=== PATIENT | female | born 1950 | race Caucasian/White ===

== ENCOUNTER 2017-07-31 09:53 | Day surgery (SDC) | payer MEDICARE ==
[~2017-07-31 09:53] MED LIST: ASPI81TA82 PO; ENAL20TA PO; LEXA20TA PO; LORTA5 PO
[2017-07-31 10:25] VITALS: BP 107/61; PULSE 75; RESP 14; TEMP 99; O2SAT 93
== END 2017-07-31 13:03 | disposition home or self-care (01) ==
LOC: HRAD 09:53 → HRIP 09:53 → HRAD 13:03
PROVIDERS: ATTEND Family Medicine
DX: K70.31 Alcoholic cirrhosis of liver with ascites (principal); F10.10 Alcohol abuse, uncomplicated

== ENCOUNTER 2017-09-25 07:54 | Day surgery (SDC) | payer MEDICARE ==
--- NOTE | 2017-09-25 09:29 | RADRPT ---
EXAM DATE/TIME: 09/25/2017 08:29 [facility] COMPARISON: No previous studies available for comparison. INDICATIONS : Evaluate for ascites. MEDICAL HISTORY : Hypertension. Peripheral neuropathy. SURGICAL HISTORY : Hysterectomy. Tumor removed from right shoulder and 2 benign tumors from left hip. ENCOUNTER: Subsequent ACUITY: 3 days PAIN SCORE: 5/10 LOCATION: Four quadrant abdomen. AREA EVALUATED: Four quadrant. FINDINGS: Imaging of the abdomen and pelvis was performed to evaluate for ascites for possible paracentesis. Mi nimal ascites is noted which is inadequate for paracentesis. CONCLUSION: Minimal ascites noted which is inadequate for paracentesis. García Power MD on September 25, 2017 at 9:26 Board Certified Radiologist. This report was verified electronically.
== END 2017-09-25 08:45 | disposition home or self-care (01) ==
LOC: HRIP 07:54 → HRAD 07:54
DX: R18.8 Other ascites (principal); I10 Essential (primary) hypertension; G62.9 Polyneuropathy, unspecified
CPT/HCPCS: 76705

== ENCOUNTER → 2017-10-08 | Outpatient (CLI) | payer MEDICARE ==
[~2017-10-08] VITALS: Ht 167.6 cm; Wt 76.1 kg
[~2017-10-08] MED LIST changes: +ASPI81TA23 PO; -ASPI81TA82 PO; +CHLORHEXIDINE GLUCONATE 2 % 1 PACK (2 CLOTHS) TOPICAL PRN; +CITA20TA4 PO; +FLOR250C PO; +FURO1TAB60 PO; +HYDR-3516 PO; +INSULIN HUMAN REGULAR 1,000 UNITS/10 ML VIAL SQ PRN; +LACT10SO PO; +LACTATED RINGER'S 1000 ML IV PRN; +LIDOCAINE HCL 1% PF 5 ML AMPULE OTHER ONE; -LORTA5 PO; +METOPROLOL TARTRATE 25 MG TAB PO PRN; +OMEP20TA93 PO; +PHENYLEPH/NS 1000 MCG/10 ML SYR IV ONE; +POVIDONE IODINE 5% (ANTISEPSIS KIT) 4 APPLICATIONS EACH NARE PRN; +PROPOFOL 200 MG/20 ML AMP IV ONE; +SODIUM CHLORID 0.9% 500 ML IV PRN; +SPIR50TA PO; +XIFA550T4 PO
[2017-10-08 08:01] VITALS: BP 116/64; PULSE 77; RESP 20; TEMP 97.6; O2SAT 100
--- NOTE | 2017-10-08 10:16 | GIPROC ---
[facility] [address] [facility]. [facility], [address] EGD PROCEDURE REPORT EXAM DATE: 10/08/2017 PATIENT NAME: Yane Bang MR #: [id number] BIRTHDATE: 1950 ATTENDING: Yannick Gonzalez MD ORDER #: [id number] WAREHOUSE CHECKER: Prasanna Cardoso and Poppy Burris STATUS: outpatient INDICATIONS: The patient is a 66 yr old female here for an EGD due to unexplained iron deficiency anemia, screening for varices, and unexplained diarrhea PROCEDURE PERFORMED: EGD, diagnostic MEDICATIONS: Per Anesthesia and None. TOPICAL ANESTHETIC: none CONSENT: The patient understands the risks and benefits of the procedure and understands that these risks include, but are not limited to: sedation, allergic reaction, infection, perforation and/or bleeding. Alternative means of evaluation and treatment include, among others: physical exam, x-rays, and/or surgical intervention. The patient elects to proceed with this endoscopic procedure. medical equipment was checked for proper function. Hand hygiene and appropriate measures for infection prevention was taken. After the risks, benefits and alternatives of the procedure were thoroughly explained, Informed consent was verified, confirmed and timeout was successfully executed by the treatment team. The patient was anesthetized with topical anesthesia and the Pentax [id number] endoscope was introduced through the mouth and advanced to the second portion of the duodenum. Retroflexion was performed and was normal The gastroscope was then slowly withdrawn and removed. STOMACH: The mucosa of the stomach appeared normal. ESOPHAGUS: There was a single medium sized varix in the distal esophagus. The varices were not bleeding. There was evidence of prior scarring. DUODENUM: The duodenal mucosa appeared normal in the duodenal bulb and 2nd part duodenum. ADVERSE EVENTS: There were no complications. IMPRESSIONS: 1. The mucosa of the stomach appeared normal 2. Normal duodenal mucosa in the duodenal bulb and 2nd part duodenum 3. Retroflexion was performed and was normal 4. Grade 2 esophageal varices RECOMMENDATIONS: Continue propanolol PATIENT CONDITION: stable DISPOSITION: Home REPEAT EXAM: NONE Yannick Gonzalez MD eSigned: Yannick Gonzalez MD 10/08/2017 10:16 AM cc: Poonam Yang M.D. PATIENT NAME: Yane Bang MR#: [id number]
--- NOTE | 2017-10-08 10:22 | GIPROC ---
[facility] [address] [facility]. [facility], [address] COLONOSCOPY PROCEDURE REPORT EXAM DATE: 10/08/2017 PATIENT NAME: Yane Bang MR #: [id number] BIRTHDATE: 1950 ENDOSCOPIST: Yannick Gonzalez MD ORDER #: [id number] WARP PLACER: Prasanna Cardoso and Poppy Burris STATUS: outpatient INDICATIONS: The patient is a 66 yr old female here for a colonoscopy due to anemia, non-specific and unexplained diarrhea PROCEDURE PERFORMED: Colonoscopy with biopsy MEDICATIONS: Per Anesthesia and None. PREP QUALITY: excellent ESTIMATED BLOOD LOSS: None CONSENT: The patient understands the risks and benefits of the procedure and understands that these risks include, but are not limited to: sedation, allergic reaction, infection, perforation and/or bleeding. Alternative means of evaluation and treatment include, among others: physical exam, x-rays, and/or surgical intervention. The patient elects to proceed with this endoscopic procedure. medical equipment was checked for proper function. Hand hygiene and appropriate measures for infection prevention was taken. After the risks, benefits and alternatives of the procedure were thoroughly explained, Informed consent was verified, confirmed and timeout was successfully executed by the treatment team. A digital exam was performed and revealed no abnormalities of the rectum The Pentax [id number] endoscope was introduced through the anus and advanced to the terminal ileum which was intubated for a short distance. The instrument was then slowly withdrawn as the colon was fully examined. COLON FINDINGS: Normal TI. The colonic mucosa appeared normal. Multiple biopsies were performed using cold forceps. R/O microscopic colitis. Retroflexion was not performed The scope was then completely withdrawn from the patient and the procedure terminated. PROCEDURE WITHDRAWAL TIME:8minutes ADVERSE EVENTS: There were no complications. IMPRESSIONS: 1. Normal TI 2. The colonic mucosa appeared normal; multiple biopsies were performed using cold forceps 3. Retroflexion was not performed RECOMMENDATIONS: 1. Await biopsy results. Biopsy results will not be ready for 7-10 days. If you don't hear from us in two weeks, call our office for results. 2. Discuss Pillcam F/U in my office RECALL: Return 5 years Colonoscopy Yannick Gonzalez MD eSigned: Yannick Gonzalez MD 10/08/2017 10:21 AM cc: Poonam Yang M.D. PATIENT NAME: Yane Bang MR#: [id number]
[2017-10-08 10:52] VITALS: BP 110/60; PULSE 75; RESP 18; TEMP 97; O2SAT 99
--- NOTE | 2017-10-08 19:37 | EKG ---
Date Performed: 10/08/2017 Time Performed: 07:33:53 PTAGE: 66 years EKG: Sinus rhythm NORMAL ECG Since PREVIOUS TRACING , no significant change noted PREVIOUS TRACIN12/29/2005 15.38 DOCTOR: Sung Morales Interpretating Date/Time 10/08/2017 19:36:03
== END ==
LOC: HEND 07:09
PROVIDERS: ATTEND Internal Medicine Gastroenterology
DX: I85.00 Esophageal varices without bleeding (principal); D50.9 Iron deficiency anemia, unspecified; R19.7 Diarrhea, unspecified; Z01.810 Encounter for preprocedural cardiovascular examination
CPT/HCPCS: 00740; 43235; 45380; 88305; 93005; J2370; J7120

== ENCOUNTER 2017-11-05 09:10 | Day surgery (SDC) | payer MEDICARE ==
[~2017-11-05 09:10] MED LIST changes: -ASPI81TA23 PO; -CHLORHEXIDINE GLUCONATE 2 % 1 PACK (2 CLOTHS) TOPICAL PRN; -ENAL20TA PO; -HYDR-3516 PO; -INSULIN HUMAN REGULAR 1,000 UNITS/10 ML VIAL SQ PRN; -LACTATED RINGER'S 1000 ML IV PRN; -LEXA20TA PO; -LIDOCAINE HCL 1% PF 5 ML AMPULE OTHER ONE; -METOPROLOL TARTRATE 25 MG TAB PO PRN; -PHENYLEPH/NS 1000 MCG/10 ML SYR IV ONE; -POVIDONE IODINE 5% (ANTISEPSIS KIT) 4 APPLICATIONS EACH NARE PRN; -PROPOFOL 200 MG/20 ML AMP IV ONE; -SODIUM CHLORID 0.9% 500 ML IV PRN
[2017-11-05 09:24] LABS: HEMATOCRIT 29.1 % (35.0-46.0); MEAN CELL VOLUME 67.7 FL (80.0-100.0); MEAN CORPUSCULAR HEMOGLOBIN 21.3 PG (27.0-34.0); MEAN CORPUSCULAR HGB CONC 31.4 % (32.0-36.0); PLATELET COUNT 126 TH/MM3 (150-450); RED BLOOD COUNT 4.29 MIL/MM3 (4.00-5.30); RED CELL DISTRIBUTION WIDTH 21.7 % (11.6-17.2); WHITE BLOOD COUNT 4.3 TH/MM3 (4.0-11.0)
[2017-11-05 09:27] LABS: HEMO FLAGS AUTO DIFF
[2017-11-05 09:36] LABS: INTERNATIONAL NORMALIZED RATIO 1.4 RATIO; PROTHROMBIN TIME - PATIENT 14.1 SEC (9.8-11.6)
[2017-11-05 09:55] LABS: BASOPHILS 1 % (0-2); EOSINOPHILS 6 % (0-4); NEUTROPHIL # MANUAL DIFF 2.7 TH/MM3 (1.8-7.7); PLATELET ESTIMATE SMEAR LOW (NORMAL); PLATELET MORPHOLOGY NORMAL (NORMAL); POLYS (SEG NEUTROPHILS) 62 % (16-70); SCAN/DIFF FINAL DIFF MANUAL; WBC DIFF SAMPLE 100
[2017-11-05 10:03] LABS: ANION GAP 10 MEQ/L (5-15); AST (GOT) 63 U/L (15-37); BICARBONATE 22.6 MEQ/L (21.0-32.0); BLOOD UREA NITROGEN 12 MG/DL (7-18); CHLORIDE 105 MEQ/L (98-107); GLOMERULAR FILTRATION RATE 59 ML/MIN (>89); GLUCOSE,FASTING 104 MG/DL (74-99); POTASSIUM 3.6 MEQ/L (3.5-5.1); SODIUM (NA) 138 MEQ/L (136-145)
[2017-11-05 10:10] VITALS: BP 136/70; PULSE 98; RESP 20; TEMP 97.5; O2SAT 91
[2017-11-05 10:19] VITALS: BP 139/78; PULSE 73; RESP 14; TEMP 97.9; O2SAT 98
[2017-11-05 10:27] LABS: ALKALINE PHOSPHATASE 229 U/L (45-117); ALT (GPT) 24 U/L (10-53); FERRITIN 15 NG/ML (8-252); TRANSFERRIN IRON PROFILE 272 MG/DL (200-360)
[2017-11-05 10:50] VITALS: BP 139/76; PULSE 78; RESP 16; TEMP 97.9; O2SAT 96
[2017-11-05] MEDS ORDERED: LIDOCAINE HCL 1% 20 ML VIAL ONE (11:16)
[2017-11-05 12:09] LABS: PERITONEAL HISTIOCYTES 34 %; PERITONEAL LYMPHS 47 %; PERITONEAL MESOTHELIAL 6 %; PERITONEAL MONOS 6 %; PERITONEAL POLYS(SEGS) 7 %; PERITONEAL WBC 80 /MM3 (0-10)
[2017-11-05] MEDS ORDERED: ALBUMIN HUMAN 25% 25GM-W/12.5GM FOR 37.5GM IV ONE (12:15)
[2017-11-05] MEDS ORDERED: ALBUMIN HUMAN 25% 12.5GM-W/25GM FOR 37.5GM IV ONE (12:15)
[2017-11-05 12:30] VITALS: BP 132/69; PULSE 76; RESP 16; O2SAT 96
[2017-11-05 15:43] LABS: C. DIFF EPI 027 PRESUMPTIVE NEGATIVE (NEGATIVE)
--- NOTE | 2017-11-05 16:06 | RADRPT ---
EXAM DATE/TIME: 11/05/2017 10:24 [facility] COMPARISON: No previous studies available for comparison. EXTERNAL COMPARISON: [facility], US ABDOMEN, COMPLETE, Jul 27 2017, September 27, 2010. INDICATIONS : Ascites. MEDICAL HISTORY : Cirrhosis. Hypertension. Peripheral neuropathy. SURGICAL HISTORY : Hysterectomy. Tumor removed from right shoulder and 2 benign tumors from left hip. ENCOUNTER: Subsequent ACUITY: > 1 yr PAIN SCORE: 2/10 LOCATION: Right lower quadrant FLUID: Total volume of 5,400 cc of clear, yellow fluid was removed. Fluid was sent to lab for ordered studies. Post procedure scanning reveals no hematoma or other complication. TECHNIQUE: 1. Ultrasound guidance for abdominal paracentesis. 2. Paracentesis. The risks, benefits, and alternatives to ultrasound guided paracentesis were explained to the patient in detail including the risk of bleeding and infection. Written and verbal informed consent was obt ained. With the patient on the ultrasound table, ultrasound imaging was used to select the most appropriate approach for paracentesis. Overlying skin was prepped and draped in the usual sterile fashion and wi th a local anesthetic, a dermatotomy was made with an 11 blade scalpel. A 6 [place] [id number] ca theter was introduced into the peritoneal cavity and fluid was collected. The patient tolerated the procedure well and left the ultrasound suite in stable condition. CONCLUSION: Uncomplicated ultrasound guided paracentesis. Tru Freitas MD on November 05, 2017 at 16:04 Board Certified Radiologist. This report was verified electronically.
== END 2017-11-05 12:50 | disposition home or self-care (01) ==
LOC: HRAD 09:10 → HRIP 09:13 → HRAD 12:50
PROVIDERS: ATTEND Physician Assistant Medical
DX: K70.31 Alcoholic cirrhosis of liver with ascites (principal); D64.9 Anemia, unspecified; I10 Essential (primary) hypertension; G62.9 Polyneuropathy, unspecified
CPT/HCPCS: 36415; 49083; 80053; 82042; 82607; 82728; 82746; 83540; 83550; 84157; 85007; 85027; 85610; 85730; 87070; 87205; 87493; 89051; 96365; C1729; P9047

== ENCOUNTER 2018-01-03 09:59 | Day surgery (SDC) | payer MEDICARE ==
[2018-01-03 12:30] VITALS: BP 122/67; PULSE 77; RESP 20; TEMP 97.8; O2SAT 99
[2018-01-03] MEDS ORDERED: LIDOCAINE HCL 1% 20 ML VIAL ONE (12:44)
[2018-01-03 12:45] VITALS: BP 123/71; PULSE 78; RESP 20; O2SAT 100
--- NOTE | 2018-01-03 12:58 | RADRPT ---
EXAM DATE/TIME: 01/03/2018 10:38 [facility] COMPARISON: EXTERNAL COMPARISON: US GUIDED ABD PARACENTESIS, November 05, 2017, 10:24. [facility], US ABDOMEN COMPLETE, Jul 27 2017, September 27, 2010. INDICATIONS : Ascites. MEDICAL HISTORY : Hypertension. Cirrhosis. Peripheral neuropathy. SURGICAL HISTORY : Hysterectomy. Tumor removed from right shoulder and 2 benign tumors from left hip. ENCOUNTER: Subsequent ACUITY: 2 months PAIN SCORE: 10/10 LOCATION: Right lower quadrant FLUID: Total volume of 5,700 cc of clear, yellow fluid was removed. Fluid was discarded. Paracentesis was therapeutic only. Post procedure scanning reveals no hematoma or other complication. TECHNIQUE: 1. Ultrasound guidance for abdominal paracentesis. 2. Paracentesis. The risks, benefits, and alternatives to ultrasound guided paracentesis were explained to the patient in detail including the risk of bleeding and infection. Written and verbal informed consent was obt ained. With the patient on the ultrasound table, ultrasound imaging was used to select the most appropriate approach for paracentesis. Overlying skin was prepped and draped in the usual sterile fashion and wi th a local anesthetic, a dermatotomy was made with an 11 blade scalpel. A 6 [place] [id number] ca theter was introduced into the peritoneal cavity and fluid was collected. The patient tolerated the procedure well and left the ultrasound suite in stable condition. CONCLUSION: Uncomplicated ultrasound guided paracentesis. Calvin Thomas MD on January 03, 2018 at 12:56 Board Certified Radiologist. This report was verified electronically.
[2018-01-03] MEDS ORDERED: ALBUMIN HUMAN 25% 25GM-W/12.5GM FOR 37.5GM IV ONE ×2 (13:00→13:15)
[2018-01-03] MEDS ORDERED: ALBUMIN HUMAN 25% 12.5GM-W/25GM FOR 37.5GM IV ONE ×2 (13:00→13:15)
[2018-01-03] MEDS ORDERED: SODIUM CHLORID 0.9% 500 ML IV PRN (13:15)
[2018-01-03] MEDS ORDERED: LACTATED RINGER'S 1000 ML IV PRN (13:15)
[2018-01-03] MEDS ORDERED: CHLORHEXIDINE GLUCONATE 2 % 1 PACK (2 CLOTHS) TOPICAL PRN (13:15)
[2018-01-03] MEDS ORDERED: METOPROLOL TARTRATE 25 MG TAB PO PRN (13:15)
[2018-01-03] MEDS ORDERED: DEXT 5%-NACL 0.9% 1000 ML INJ 1,000 ML IV SCH (13:15)
[2018-01-03] MEDS ORDERED: METRONIDAZOLE 500 MG/100 ML ISONTONIC SOLN IV SCH (13:15)
[2018-01-03] MEDS ORDERED: INSULIN HUMAN REGULAR 1,000 UNITS/10 ML VIAL SQ PRN (13:15)
[2018-01-03] MEDS ORDERED: POVIDONE IODINE 5% (ANTISEPSIS KIT) 4 APPLICATIONS EACH NARE PRN (13:15)
[2018-01-03] MEDS ORDERED: ALVIMOPAN 12 MG CAPSULE - On Call PO SCH (13:15)
[2018-01-03] MEDS ORDERED: ceFAZolin 1,000 MG/NS 100 ML IV SCH ×2 (13:15)
[2018-01-04] MEDS ORDERED: ALVIMOPAN 12 MG CAPSULE - Post-op dosing PO SCH (09:00)
== END 2018-01-03 13:15 | disposition home or self-care (01) ==
LOC: HRAD 09:59 → HRIP 10:04 → HRAD 13:15
PROVIDERS: ATTEND Physician Assistant Medical
DX: R18.8 Other ascites (principal); K74.60 Unspecified cirrhosis of liver; I10 Essential (primary) hypertension; G62.9 Polyneuropathy, unspecified
CPT/HCPCS: 49083; C1729; P9047

== ENCOUNTER 2018-02-14 19:19 | Observation (INO) | payer MEDICARE ==
[~2018-02-14] VITALS: Ht 167.6 cm; Wt 71.4 kg
[2018-02-14 19:28] VITALS: BP 123/67; PULSE 67; RESP 19; TEMP 98; O2SAT 99
--- NOTE | 2018-02-14 20:01 | PD ---
HPI Chief Complaint: Chest Pain Time Seen by Provider: 19:46 Travel History International Travel<30 days: No Contact w/Intl Traveler<30days: No Traveled to known affect area: No History of Present Illness HPI 67 years old female complains of chest pain. Patient states that the chest pain started about 3 hours prior to coming to the emergency room. Patient states the pain and pressure pain across anterior chest wall. Patient denies any pain radiation. Patient denies palpitation nausea or diaphoresis. Patient denies any cough and congestion fever chills. Patient denies history of CAD. Patient denies history hypertension, diabetes, hyperlipidemia. Patient states that she quit smoking many years ago. Patient denies family history of heart disease. Patient has history of alcohol induced liver cirrhosis. Patient has history of abdominal ascites that required paracentesis in the past. PFSH Past Medical History Autoimmune Disease: No Blood Disorders: No Anxiety: Yes Depression: No Heart Rhythm Problems: No Cancer: No Cardiovascular Problems: Yes High Cholesterol: No Chemotherapy: No Chest Pain: No Congestive Heart Failure: No Cirrhosis: Yes (and ascites) Cerebrovascular Accident: Yes (CVA) Diabetes: No Diminished Hearing: No Endocrine: No GERD: Yes Glaucoma: No Genitourinary: Yes (BLADDER) Hypertension: Yes Musculoskeletal: No Neurologic: Yes (STROKE) Psychiatric: No Reproductive: Yes (HYSTERECTOMY) Respiratory: No Myocardial Infarction: No Radiation Therapy: No Thyroid Disease: No Tetanus Vaccination: > 5 Years Influenza Vaccination: No Menopausal: Yes Past Surgical History Abdominal Surgery: No AICD: No Appendectomy: Yes Cardiac Surgery: No Ear Surgery: No Endocrine Surgery: No Eye Surgery: No Genitourinary Surgery: No Gynecologic Surgery: Yes (HYSTERECTOMY 1972) Hysterectomy: Yes Joint Replacement: No Pacemaker: No Thoracic Surgery: No Other Surgery: Yes Social History Alcohol Use: No Tobacco Use: No Substance Use: No Allergies-Medications (Allergen,Severity, Reaction): Coded Allergies: No Known Allergies (Verified Allergy, Severe, 10/08/17) zolpidem (Verified Allergy, Severe, Dizziness, 10/08/17) drunk feeling Reported Meds & Prescriptions Reported Meds & Active Scripts Active Reported Creon (Pancrelipase) 3,000-9,500-15,000 Units Cap 1 Cap PO TIDPC Propranolol (Propranolol HCl) 10 Mg Tab 10 Mg PO Q12HR Omeprazole 20 Mg Tab 20 Mg PO DAILY Lasix (Furosemide) 40 Mg Tab 60 Mg PO DAILY Spironolactone 50 Mg Tab 75 Mg PO BIDPC Lactulose Liq (Lactulose) 10 Gm/15 Ml Soln 30 Ml PO Q6H PRN Citalopram (Citalopram Hydrobromide) 20 Mg Tab 20 Mg PO DAILY Review of Systems General / Constitutional: No: Fever Eyes: No: Visual changes HENT: No: Headaches Cardiovascular: Positive: Chest Pain or Discomfort Respiratory: No: Shortness of Breath Gastrointestinal: No: Abdominal Pain Genitourinary: No: Dysuria Musculoskeletal: No: Pain Skin: No Rash Neurologic: No: Weakness Psychiatric: No: Depression Endocrine: No: Polydipsia Hematologic/Lymphatic: No: Easy Bruising Physical Exam Narrative GENERAL: Well-nourished, well-developed patient. SKIN: Focused skin assessment warm/dry. HEAD: Normocephalic. EYES: No scleral icterus. No injection or drainage. NECK: Supple, trachea midline. No JVD or lymphadenopathy. CARDIOVASCULAR: Regular rate and rhythm without murmurs, gallops, or rubs. RESPIRATORY: Breath sounds equal bilaterally. No accessory muscle use. GASTROINTESTINAL: Abdomen soft, nondistended. Patient has mild diffuse tenderness over the abdomen. No rebound tenderness. MUSCULOSKELETAL: No cyanosis, or edema. BACK: Nontender without obvious deformity. No CVA tenderness. Neurologic exam normal. Data Data Last Documented VS Vital Signs Date Time Temp Pulse Resp B/P (MAP) Pulse Ox O2 Delivery O2 Flow Rate FiO2 02/14/18 20:40 68 17 117/71 (86) 100 Room Air 02/14/18 19:28 98.0 Orders Orders Electrocardiogram (02/14/18 ) Electrocardiogram (02/14/18 19:55) Complete Blood Count With Diff (02/14/18 19:55) Comprehensive Metabolic Panel (02/14/18 19:55) Creatine Kinase (Cpk) (02/14/18 19:55) Troponin I (02/14/18 19:55) Prothrombin Time / Inr (Pt) (02/14/18 19:55) Act Partial Throm Time (Ptt) (02/14/18 19:55) Chest, Single Ap (02/14/18 19:55) Iv Access Insert/Monitor (02/14/18 19:55) Ecg Monitoring (02/14/18 19:55) Oximetry (02/14/18 19:55) B-Type Natriuretic Peptide (02/14/18 19:55) Potassium Chloride (Kcl) (02/14/18 21:15) Labs Laboratory Tests Test 02/14/18 19:55 White Blood Count 4.5 TH/MM3 Red Blood Count 4.34 MIL/MM3 Hemoglobin 12.9 GM/DL Hematocrit 38.8 % Mean Corpuscular Volume 89.4 FL Mean Corpuscular Hemoglobin 29.7 PG Mean Corpuscular Hemoglobin Concent 33.3 % Red Cell Distribution Width 21.6 % Platelet Count 91 TH/MM3 Mean Platelet Volume 8.7 FL CBC Comment AUTO DIFF Prothrombin Time 12.7 SEC Prothromb Time International Ratio 1.3 RATIO Activated Partial Thromboplast Time 27.3 SEC Blood Urea Nitrogen 9 MG/DL Creatinine 0.75 MG/DL Random Glucose 111 MG/DL Total Protein 6.9 GM/DL Albumin 2.2 GM/DL Calcium Level 8.0 MG/DL Alkaline Phosphatase 202 U/L Aspartate Amino Transf (AST/SGOT) 69 U/L Alanine Aminotransferase (ALT/SGPT) 38 U/L Total Bilirubin 1.8 MG/DL Sodium Level 133 MEQ/L Potassium Level 3.3 MEQ/L Chloride Level 101 MEQ/L Carbon Dioxide Level 24.3 MEQ/L Anion Gap 8 MEQ/L Estimat Glomerular Filtration Rate 77 ML/MIN Total Creatine Kinase 105 U/L Troponin I LESS THAN 0.02 NG/ML B-Type Natriuretic Peptide 101 PG/ML MDM Medical Decision Making Medical Screen Exam Complete: Yes Emergency Medical Condition: Yes Interpretation(s) EKG shows sinus rhythm nonspecific ST-T wave change. 21:01 PM. CBC with platelet 91. Sodium 133. Potassium 3.3. GFR 77. Calcium 8.0. Total bili 1.8. AST 69. Alkaline phosphatase 202. Cardiac enzymes are normal. BNP 101. INR 1.3. Differential Diagnosis Differential diagnosis including musculoskeletal, angina, ID, PE, pneumothorax. Narrative Course 67 years old female with chest pain. History of liver cirrhosis and ascites. KCl 20 mEq p.o. given. Patient will be admitted to the chest pain center. Diagnosis Primary Impression: Chest pain Qualified Codes: R07.9 - Chest pain, unspecified Additional Impressions: Hypokalemia Thrombocytopenia History of cirrhosis of liver Admitting Information Admitting Physician Requests: Gabriel Francis MD Feb 14, 2018 20:01
[2018-02-14 20:10] VITALS: RESP 18; O2SAT 99
[2018-02-14] MEDS ORDERED: PROP10TA6 PO (20:13)
[2018-02-14] MEDS ORDERED: CREO3000 PO (20:13)
[2018-02-14 20:15] LABS: HEMATOCRIT 38.8 % (35.0-46.0); HEMOGLOBIN 12.9 GM/DL (11.6-15.3); MEAN CELL VOLUME 89.4 FL (80.0-100.0); MEAN CORPUSCULAR HEMOGLOBIN 29.7 PG (27.0-34.0); MEAN CORPUSCULAR HGB CONC 33.3 % (32.0-36.0); MEAN PLATELET VOLUME 8.7 FL (7.0-11.0); PLATELET COUNT 91 TH/MM3 (150-450); RED BLOOD COUNT 4.34 MIL/MM3 (4.00-5.30); RED CELL DISTRIBUTION WIDTH 21.6 % (11.6-17.2); WHITE BLOOD COUNT 4.5 TH/MM3 (4.0-11.0)
[2018-02-14 20:22] LABS: CHLORIDE 101 MEQ/L (98-107); SODIUM (NA) 133 MEQ/L (136-145)
[2018-02-14 20:26] LABS: ALBUMIN 2.2 GM/DL (3.4-5.0); BICARBONATE 24.3 MEQ/L (21.0-32.0); BLOOD UREA NITROGEN 9 MG/DL (7-18); GLUCOSE,RANDOM 111 MG/DL (74-106)
[2018-02-14 20:28] LABS: INTERNATIONAL NORMALIZED RATIO 1.3 RATIO; PROTHROMBIN TIME - PATIENT 12.7 SEC (9.8-11.6)
[2018-02-14 20:29] LABS: ALT (GPT) 38 U/L (10-53); AST (GOT) 69 U/L (15-37); CREATININE 0.75 MG/DL (0.50-1.00); GLOMERULAR FILTRATION RATE 77 ML/MIN (>89)
[2018-02-14 20:31] LABS: TOTAL BILIRUBIN ADULT 1.8 MG/DL (0.2-1.0); TOTAL PROTEIN 6.9 GM/DL (6.4-8.2)
[2018-02-14 20:32] LABS: ALKALINE PHOSPHATASE 202 U/L (45-117)
[2018-02-14 20:34] LABS: TROPONIN I LESS THAN 0.02 NG/ML (0.02-0.05)
[2018-02-14 20:40] VITALS: BP 117/71; PULSE 68; RESP 17; O2SAT 100
[2018-02-14 21:14] LABS: LYMPHOCYTES 50 % (9-44); MONOCYTES 9 % (0-8); NEUTROPHIL # MANUAL DIFF 1.8 TH/MM3 (1.8-7.7); POLYS (SEG NEUTROPHILS) 40 % (16-70)
[2018-02-14] MEDS ORDERED: POTASSIUM CHLORIDE 20 MEQ CONTROLLED RELEASE TAB PO ONE (21:15)
[2018-02-14 21:30] VITALS: BP 115/70; PULSE 73; RESP 16; O2SAT 99
--- NOTE | 2018-02-14 21:30 | RADRPT ---
EXAM DATE/TIME: 02/14/2018 20:39 [facility] COMPARISON: No previous studies available for comparison. INDICATIONS : Chest pain today. MEDICAL HISTORY : Hypertension. Stroke. Gastroesophageal reflux disease. SURGICAL HISTORY : Appendectomy. Hysterectomy. ENCOUNTER: Initial ACUITY: 1 day PAIN SCORE: 4/10 LOCATION: Bilateral chest FINDINGS: A single view of the chest demonstrates the lungs to be symmetrically aerated without evidence of mas s, infiltrate or effusion. Minimal basal atelectasis. The cardiomediastinal contours are unremarkable . Osseous structures are intact. CONCLUSION: 1. Minimal basal atelectasis. No effusion or pneumothorax. Rudy Pérez MD on February 14, 2018 at 21:26 Board Certified Radiologist. This report was verified electronically.
[2018-02-14] MEDS ORDERED: SODIUM CHLORIDE 0.9% FLUSH 10 ML FLUSH IV FLUSH PRN (21:45)
[2018-02-14 22:14] VITALS: O2SAT 100
[2018-02-14 22:45] VITALS: BP 119/65; PULSE 74; RESP 16; O2SAT 99
[2018-02-14 23:33] LABS: TROPONIN I LESS THAN 0.02 NG/ML (0.02-0.05)
[2018-02-15] VITALS (7 sets, daily range): BP systolic 109–121; BP diastolic 53–68; PULSE 77–85; RESP 16–18; TEMP 97.6–98.2; O2SAT 96–98
[2018-02-15 03:05] LABS: TROPONIN I LESS THAN 0.02 NG/ML (0.02-0.05)
[2018-02-15] MEDS ORDERED: SODIUM CHLORIDE 0.9% FLUSH 10 ML FLUSH IV FLUSH SCH (09:00)
--- NOTE | 2018-02-15 09:00 | HHI.HP ---
HPI Service [facility] Primary Care Physician Non-Staff Admission Diagnosis Chest pain. Hypokalemia. Thrombocytopenia. History of liver cirrh Diagnoses: Chief Complaint: chest pain Travel History International Travel<30 Days: No Contact w/Intl Traveler <30 Da: No Traveled to Known Affected Are: No History of Present Illness 67 years old female with PMH of liver cirrhosis with ascites, h/o CVA complains of chest pain. Patient states that the chest pain started about 3 hours prior to coming to the emergency room. Patient states the pain and pressure pain across anterior chest wall. Patient denies any pain radiation. Patient denies palpitation nausea or diaphoresis. Patient denies any cough and congestion fever chills. Patient denies history of CAD. Patient denies history hypertension, diabetes, hyperlipidemia. Patient states that she quit smoking many years ago. Patient denies family history of heart disease. Patient has history of alcohol induced liver cirrhosis. Patient has history of abdominal ascites that required paracentesis in the past. Review of Systems Except as stated in HPI: all other systems reviewed are Neg Past Family Social History Past Medical History Liver cirrhosis with ascites, h/o CVA Past Surgical History Hysterectomy 1973 Appendectomy Reported Medications Reported Meds & Active Scripts Active Reported Creon (Pancrelipase) 3,000-9,500-15,000 Units Cap 1 Cap PO TIDPC Propranolol (Propranolol HCl) 10 Mg Tab 10 Mg PO Q12HR Omeprazole 20 Mg Tab 20 Mg PO DAILY Lasix (Furosemide) 40 Mg Tab 60 Mg PO DAILY Spironolactone 50 Mg Tab 75 Mg PO BIDPC Lactulose Liq (Lactulose) 10 Gm/15 Ml Soln 30 Ml PO Q6H PRN Citalopram (Citalopram Hydrobromide) 20 Mg Tab 20 Mg PO DAILY Allergies: Coded Allergies: No Known Allergies (Verified Allergy, Severe, 10/08/17) zolpidem (Verified Allergy, Severe, Dizziness, 10/08/17) drunk feeling Family History Mom liver, problems EtOH HTN Father stroke , prostate CA Siblings brain tumor , lung /bone cancer Social History No EtOh use, tobacco use (quit 19 years ago) or illicit drug use Physical Exam Vital Signs Vital Signs Date Time Temp Pulse Resp B/P (MAP) Pulse Ox O2 Delivery O2 Flow Rate FiO2 02/15/18 07:47 77 16 118/68 (85) 99 02/15/18 07:24 85 16 95 Room Air 02/15/18 07:24 85 16 109/56 (73) 96 Room Air 02/15/18 04:20 81 16 Room Air 02/15/18 04:20 98.2 81 16 110/65 (80) 97 Room Air 02/15/18 02:25 82 16 110/65 (80) 98 Room Air 02/15/18 02:25 82 16 Room Air 02/15/18 01:10 78 16 112/61 (78) 98 Room Air 02/14/18 22:45 74 16 119/65 (83) 99 Room Air 02/14/18 22:14 100 21 02/14/18 21:30 73 16 115/70 (85) 99 Room Air 02/14/18 21:30 73 16 Room Air 02/14/18 20:40 68 17 117/71 (86) 100 Room Air 02/14/18 20:10 18 99 Room Air 02/14/18 19:37 Room Air 02/14/18 19:28 98.0 67 19 123/67 (85) 99 Physical Exam GENERAL: This is a well-nourished, well-developed patient, in no apparent distress. SKIN: No rashes, ecchymoses or lesions. Cool and dry. HEAD: Atraumatic. Normocephalic. No temporal or scalp tenderness. EYES: Pupils equal round and reactive. Extraocular motions intact. No scleral icterus. No injection or drainage. ENT: Nose without bleeding, purulent drainage or septal hematoma. Throat without erythema, tonsillar hypertrophy or exudate. Uvula midline. Airway patent. NECK: Trachea midline. No JVD or lymphadenopathy. Supple, nontender, no meningeal signs. CARDIOVASCULAR: Regular rate and rhythm without murmurs, gallops, or rubs. RESPIRATORY: Clear to auscultation. Breath sounds equal bilaterally. No wheezes , rales, or rhonchi. GASTROINTESTINAL: Abdomen soft, non-tender, nondistended. No hepato-splenomegaly , or palpable masses. No guarding. MUSCULOSKELETAL: Extremities without clubbing, cyanosis, or edema. No joint tenderness, effusion, or edema noted. No calf tenderness. Negative Homans sign bilaterally. NEUROLOGICAL: Awake and alert. Cranial nerves II through XII intact. Motor and sensory grossly within normal limits. Five out of 5 muscle strength in all muscle groups. Normal speech. Laboratory Laboratory Tests Test 02/14/18 19:55 02/14/18 23:00 02/15/18 02:15 White Blood Count 4.5 Red Blood Count 4.34 Hemoglobin 12.9 Hematocrit 38.8 Mean Corpuscular Volume 89.4 Mean Corpuscular Hemoglobin 29.7 Mean Corpuscular Hemoglobin Concent 33.3 Red Cell Distribution Width 21.6 Platelet Count 91 Mean Platelet Volume 8.7 CBC Comment AUTO DIFF Differential Total Cells Counted 100 Neutrophils % (Manual) 40 Lymphocytes % 50 Monocytes % 9 Eosinophils % 1 Neutrophils # (Manual) 1.8 Differential Comment FINAL DIFF MANUAL Atypical Lymphocytes Platelet Estimate LOW Platelet Morphology Comment NORMAL Red Cell Morphology Comment NORMAL Prothrombin Time 12.7 Prothromb Time International Ratio 1.3 Activated Partial Thromboplast Time 27.3 Blood Urea Nitrogen 9 Creatinine 0.75 Random Glucose 111 Total Protein 6.9 Albumin 2.2 Calcium Level 8.0 Alkaline Phosphatase 202 Aspartate Amino Transf (AST/SGOT) 69 Alanine Aminotransferase (ALT/SGPT) 38 Total Bilirubin 1.8 Sodium Level 133 Potassium Level 3.3 Chloride Level 101 Carbon Dioxide Level 24.3 Anion Gap 8 Estimat Glomerular Filtration Rate 77 Total Creatine Kinase 105 81 75 Troponin I LESS THAN 0.02 LESS THAN 0.02 LESS THAN 0.02 B-Type Natriuretic Peptide 101 Result Diagram: 02/14/18195402/14/181954 Imaging Last Impressions Chest X-Ray 02/14/181954 Signed Impressions: Service Date/Time: January 20:39 - CONCLUSION: 1. Minimal basal atelectasis. No effusion or pneumothorax. Rudy Pérez MD Caprini VTE Risk Assessment Caprini VTE Risk Assessment: Mod/High Risk (score >= 2) Caprini Risk Assessment Model Point Value = 1 Point Value = 2 Point Value = 3 Point Value = 5 Age 41-60 Minor surgery BMI > 25 kg/m2 Swollen legs Varicose veins or History of unexplained or recurrent spontaneous Oral contraceptives or hormone replacement Sepsis (< 1 month) Serious lung disease, including pneumonia (< 1 month) Abnormal pulmonary function Acute myocardial infarction Congestive heart failure (< 1 month) History of inflammatory bowel disease Medical patient at bed rest Age 61-74 Arthroscopic surgery Major open surgery (> 45 min) Laparoscopic surgery (> 45 min) Malignancy Confined to bed (> 72 hours) Immobilizing plaster cast Central venous access Age >= 75 History of VTE Family history of VTE Factor V Leiden Prothrombin [id number] Lupus anticoagulant Anticardiolipin antibodies Elevated serum homocysteine Heparin-induced thrombocytopenia Other congenital or acquired thrombophilia Stroke (< 1 month) Elective arthroplasty Hip, pelvis, or leg fracture Acute spinal cord injury (< 1 month) Prophylaxis Regimen Total Risk Factor Score Risk Level Prophylaxis Regimen 0-1 Low Early ambulation 2 Moderate Order ONE of the following: *Sequential Compression Device (SCD) *Heparin 5000 units SQ BID 3-4 Higher Order ONE of the following medications: *Heparin 5000 units SQ TID *Enoxaparin/Lovenox 40 mg SQ daily (WT < 150 kg, CrCl > 30 mL/min) *Enoxaparin/Lovenox 30 mg SQ daily (WT < 150 kg, CrCl > 10-29 mL/min) *Enoxaparin/Lovenox 30 mg SQ BID (WT < 150 kg, CrCl > 30 mL/min) AND/OR *Sequential Compression Device (SCD) 5 or more Highest Order ONE of the following medications: *Heparin 5000 units SQ TID (Preferred with Epidurals) *Enoxaparin/Lovenox 40 mg SQ daily (WT < 150 kg, CrCl > 30 mL/min) *Enoxaparin/Lovenox 30 mg SQ daily (WT < 150 kg, CrCl > 10-29 mL/min) *Enoxaparin/Lovenox 30 mg SQ BID (WT < 150 kg, CrCl > 30 mL/min) AND *Sequential Compression Device (SCD) Assessment and Plan Assessment and Plan 67 years old female with chest pain. History of liver cirrhosis and ascites. KCl 20 mEq p.o. given. Chest pain Hypokalemia Thrombocytopenia PLT 91 on admission History of cirrhosis of liver CE normal. EKG shows sinus rhythm nonspecific ST-T wave change. EKG no ischemic changes Replace K . Monitor and replace lytes as need . Lexiscan is negative . Discussed with the patient Monitor for signs of bleeding Restart home meds as appropriate Stress test negative DC home in stable condition to follow up as OP with PCP and consultants Diet healthy heart as yosvany Activity ad ines as yosvany Meds per med reconciliations Activity ad ines as yosvany Discussed Condition With pt, nurse Jaimie Keating MD Feb 15, 2018 09:00
[2018-02-15] MEDS ORDERED: POTASSIUM CHLORIDE 10 MEQ CONTROLLED RELEASE TAB PO ONE (10:00)
[2018-02-15 10:04] LABS: BICARBONATE 21.6 MEQ/L (21.0-32.0)
[2018-02-15 10:10] LABS: CREATININE 0.66 MG/DL (0.50-1.00)
[2018-02-15] MEDS ORDERED: REGADENOSON INJ 0.4 MG/5 ML SYR IV ONE (11:47)
--- NOTE | 2018-02-15 14:00 | RADRPT ---
EXAM DATE/TIME: 02/15/2018 11:41 [facility] COMPARISON: No previous studies available for comparison. INDICATIONS : Substernal chest pain. Angina. DOSE: 25.4 mCi Tc99m Myoview at stress. 8.5 mCi Tc99m Myoview at rest. 0.4 mg Lexiscan STRESS SYMPTOMS: Dyspnea. EJECTION FRACTION: 69% MEDICAL HISTORY : Hypertension. Gastroesophageal reflux disease. SURGICAL HISTORY : Hysterectomy. Appendectomy. ENCOUNTER: Initial ACUITY: 1 day PAIN SCALE: 5/10 LOCATION: Substernal chest TECHNIQUE: The patient underwent pharmacologic stress with infusion of prescribed dose. Continuous ECG tracing was monitored during stress. Gated SPECT imaging was performed after stress and conventional SPECT i maging was performed at rest. The examination was performed on a SPECT/CT scanner, both attenuation and non-corrected datasets were reviewed. FINDINGS: DISTRIBUTION: The maximum perfused segment at stress is in the inferior wall. PERFUSION STUDY: The pattern of perfusion at stress is within normal limits. GATED STUDY: There is intact wall motion and thickening without hypokinetic or dyskinetic segments. CONCLUSION: No reversible defect observed to suggest acute ischemia. RISK CATEGORY: Low Avni Jaimes Jr., MD on February 15, 2018 at 13:56 Board Certified Radiologist. This report was verified electronically.
--- NOTE | 2018-02-15 14:19 | HHI.DCPOC ---
Discharge Care Plan Goals to Promote Your Health * To prevent worsening of your condition and complications * To maintain your health at the optimal level Directions to Meet Your Goals Take your medications as prescribed Follow your dietary instruction Follow activity as directed Keep your appointments as scheduled Take your immunizations and boosters as scheduled If your symptoms worsen call your PCP, if no PCP go to Urgent Care Center or Emergency Room Smoking is Dangerous to Your Health. Avoid second hand smoke Call the 24-hour hour crisis hotline for domestic abuse at Jaimie Keating MD Feb 15, 2018 14:19
--- NOTE | 2018-02-16 12:31 | EKG ---
Date Performed: 02/15/2018 Time Performed: 02:26:02 PTAGE: 67 years EKG: Sinus rhythm NORMAL ECG PREVIOUS TRACING : 02/14/2018 23.58 DOCTOR: Nicolas Guzman Interpretating Date/Time 02/16/2018 12:31:13
--- NOTE | 2018-02-16 12:33 | EKG ---
Date Performed: 02/14/2018 Time Performed: 19:36:08 PTAGE: 67 years EKG: Sinus rhythm NORMAL ECG PREVIOUS TRACING : 10/08/2017 07.33 DOCTOR: Nicolas Guzman Interpretating Date/Time 02/16/2018 12:32:49
--- NOTE | 2018-02-16 12:35 | EKG ---
Date Performed: 02/14/2018 Time Performed: 23:58:54 PTAGE: 67 years EKG: Sinus rhythm NORMAL ECG PREVIOUS TRACING : 02/14/2018 19.36 DOCTOR: Nicolas Guzman Interpretating Date/Time 02/16/2018 12:34:11
--- NOTE | 2018-02-16 12:40 | TR ---
Date Performed: 02/15/2018 Time Performed: 12:06:31 DOCTOR: Nicolas Guzman DRUG LIST: CLINICAL HISTORY: CHEST PAIN REASON FOR TEST: Chest pain REASON FOR ENDING: OBSERVATION: CONCLUSION: Lexiscan stress test was performed under standard four minute protocol. Radionuclide was injected one minute prior to ending the test. No electrocardiographic abormalities were present to suggest ischemia. Nuclear imaging and interpretation are pending. COMMENTS:
== END 2018-02-15 17:28 | disposition home or self-care (01) ==
LOC: PHED 19:19 → PHEDA 21:33 → PHEDH 02-15 05:05 → PH3A 02-15 07:54
PROVIDERS: ADMIT Hospitalist; ATTEND Hospitalist
DX: R07.9 Chest pain, unspecified (principal); E87.6 Hypokalemia; D69.6 Thrombocytopenia, unspecified; I10 Essential (primary) hypertension; K21.9 Gastro-esophageal reflux disease without esophagitis; Z86.73 Personal history of transient ischemic attack (TIA), and cerebral infarction without residual deficits; Z87.891 Personal history of nicotine dependence; Z90.710 Acquired absence of both cervix and uterus; Z80.8 Family history of malignant neoplasm of other organs or systems
CPT/HCPCS: 71045; 78452; 80048; 80053; 82550; 83880; 84484; 85007; 85027; 85610; 85730; 93005; 93017; 99285; A9502; G0378; J2785

== ENCOUNTER 2018-03-07 07:54 | Day surgery (SDC) | payer MEDICARE ==
[~2018-03-07 07:54] MED LIST changes: +CREO3000 PO; -FLOR250C PO; +PROP10TA6 PO; -XIFA550T4 PO
[2018-03-07 08:12] VITALS: BP 112/57; PULSE 74; RESP 16; TEMP 98.5; O2SAT 95
[2018-03-07 09:50] VITALS: BP 118/62; PULSE 82; RESP 16; TEMP 98.5; O2SAT 100
[2018-03-07] MEDS ORDERED: ALBUMIN 25% INJ 0 ML IV ONE (10:00)
[2018-03-07] MEDS ORDERED: LIDOCAINE HCL 1% 20 ML VIAL ONE (10:07)
[2018-03-07 10:10] VITALS: BP 116/63; PULSE 80; RESP 16; O2SAT 100
--- NOTE | 2018-03-07 10:13 | PD.RAD ---
Post US Procedure Prog Note Pre Procedure Diagnosis: (1) Ascites Post Procedure Diagnosis: (1) Ascites Procedure Date: Mar 07, 2018 Supervising Radiologist: Jasvir Easton Estimated blood loss: none Anesthesia: Local Plan of Activity Patient to Unit: ROPU Patient Condition: Good See PACS Report for procedural detail/treatment Drainage Procedure Procedure 1 Imaging Guidance: Ultrasound Side: Right Procedure Type: Paracentesis Drainage: Suction Fluid Removal (CCs): 6800 Fluid Description: Clear, Yellow Additional Detail: all fluid removed. Plan to ROPU for albumin and monitoring then discharge. Jasvir Easton MD Mar 07, 2018 10:13
--- NOTE | 2018-03-07 10:15 | RADRPT ---
EXAM DATE/TIME: 03/07/2018 08:25 [facility] COMPARISON: EXTERNAL COMPARISON: US GUIDED ABD PARACENTESIS, January 03, 2018, 10:38. [facility], CT ABDOMEN & PELVIS W/CON TRAST, Feb 14 2018, February 21, 2017, US ABDOMEN COMPLETE, July 27, 2017, February 15, 2017, September 27, 2010, US ABDOMEN LIVER, April 15, 2015. INDICATIONS : Ascites. MEDICAL HISTORY : Hypertension. Cirrhosis. Osteoporosis. Peripheral neuropathy. Ascites. CVA. Sleep apnea. SURGICAL HISTORY : Hysterectomy. Appendectomy. Tumor removed from right shoulder and two benign tumors from left hip. P aracentesis. ENCOUNTER: Subsequent ACUITY: 2 months PAIN SCORE: 3/10 LOCATION: Right lower quadrant FLUID: Total volume of 6800 cc of clear, yellow fluid was removed. Fluid was discarded. Paracentesis was therapeutic only. Post procedure scanning reveals no hematoma or other complication. TECHNIQUE: 1. Ultrasound guidance for abdominal paracentesis. 2. Paracentesis. The risks, benefits, and alternatives to ultrasound guided paracentesis were explained to the patient in detail including the risk of bleeding and infection. Written and verbal informed consent was obt ained. With the patient on the ultrasound table, ultrasound imaging was used to select the most appropriate approach for paracentesis. Overlying skin was prepped and draped in the usual sterile fashion and wi th a local anesthetic, a dermatotomy was made with an 11 blade scalpel. A 6 Occitan [id number]-J-dkqkkoxw ca theter was introduced into the peritoneal cavity and fluid was collected. The patient tolerated the procedure well and left the ultrasound suite in stable condition. CONCLUSION: Uncomplicated ultrasound guided paracentesis. Jasvir Easton MD on March 07, 2018 at 10:09 Board Certified Radiologist. This report was verified electronically.
== END 2018-03-07 10:45 | disposition home or self-care (01) ==
LOC: HRIP 07:54 → HRAD 07:54
PROVIDERS: ATTEND Internal Medicine Gastroenterology
DX: K70.31 Alcoholic cirrhosis of liver with ascites (principal); I10 Essential (primary) hypertension; G62.9 Polyneuropathy, unspecified; G47.30 Sleep apnea, unspecified; Z86.73 Personal history of transient ischemic attack (TIA), and cerebral infarction without residual deficits
CPT/HCPCS: 49083; 96365; C1729; P9047

== ENCOUNTER 2018-03-20 09:52 | Day surgery (SDC) | payer MEDICARE ==
[2018-03-20] MEDS ORDERED: ALBUMIN 25% INJ 0 ML IV ONE (11:30)
[2018-03-20 12:20] VITALS: BP 139/75; PULSE 84; RESP 18; TEMP 98.6; O2SAT 100
[2018-03-20] MEDS ORDERED: ALBUMIN HUMAN 25% 50GM-W/12.5GM FOR 62.5GM IV ONE (12:30)
[2018-03-20] MEDS ORDERED: ALBUMIN HUMAN 25% 12.5GM-W/50GM FOR 62.5GM IV ONE (12:30)
[2018-03-20 12:35] VITALS: BP 138/75; PULSE 88; RESP 18; TEMP 98.6; O2SAT 97
[2018-03-20] MEDS ORDERED: LIDOCAINE HCL 1% 20 ML VIAL ONE (12:46)
--- NOTE | 2018-03-20 13:04 | RADRPT ---
EXAM DATE/TIME: 03/20/2018 10:07 [facility] COMPARISON: US GUIDED ABD PARACENTESIS, March 07, 2018, 8:25. INDICATIONS : Ascites. MEDICAL HISTORY : Hypertension. Cirrhosis. Osteoporosis. Peripheral neuropathy. Ascites. CVA. Sleep apnea. SURGICAL HISTORY : Hysterectomy. Appendectomy. Paracentesis. Tumor removed from right hip. ENCOUNTER: Subsequent ACUITY: 2 weeks PAIN SCORE: 2/10 LOCATION: Right lower quadrant FLUID: Total volume of 9,100 cc of clear, yellow fluid was removed. Fluid was discarded. Paracentesis was therapeutic only. Post procedure scanning reveals no hematoma or other complication. TECHNIQUE: 1. Ultrasound guidance for abdominal paracentesis. 2. Paracentesis. The risks, benefits, and alternatives to ultrasound guided paracentesis were explained to the patient in detail including the risk of bleeding and infection. Written and verbal informed consent was obt ained. With the patient on the ultrasound table, ultrasound imaging was used to select the most appropriate approach for paracentesis. Overlying skin was prepped and draped in the usual sterile fashion and wi th a local anesthetic, a dermatotomy was made with an 11 blade scalpel. A 6 Lao Pce-W-qegyejam ca theter was introduced into the peritoneal cavity and fluid was collected. The patient tolerated the procedure well and left the ultrasound suite in stable condition. CONCLUSION: Uncomplicated ultrasound guided paracentesis. García Power MD on March 20, 2018 at 13:02 Board Certified Radiologist. This report was verified electronically.
== END 2018-03-20 14:15 | disposition home or self-care (01) ==
LOC: HRAD 09:52 → HRIP 09:53 → HRAD 14:15
PROVIDERS: ATTEND Physician Assistant Medical
DX: K70.31 Alcoholic cirrhosis of liver with ascites (principal); I10 Essential (primary) hypertension; G62.9 Polyneuropathy, unspecified; G47.30 Sleep apnea, unspecified; M81.0 Age-related osteoporosis without current pathological fracture; Z86.73 Personal history of transient ischemic attack (TIA), and cerebral infarction without residual deficits
CPT/HCPCS: 49083; 96365; C1729

== ENCOUNTER 2018-04-05 09:53 | Day surgery (SDC) | payer MEDICARE ==
[2018-04-05] MEDS ORDERED: ALBUMIN 25% INJ 0 ML IV ONE (11:30)
[2018-04-05] MEDS ORDERED: LIDOCAINE HCL 1% 20 ML VIAL ONE (12:19)
[2018-04-05 12:28] VITALS: BP 112/58; PULSE 78; RESP 16; O2SAT 94
[2018-04-05 12:45] VITALS: BP 110/53; PULSE 73; RESP 18; O2SAT 95
--- NOTE | 2018-04-05 13:46 | RADRPT ---
EXAM DATE/TIME: 04/05/2018 10:20 [facility] COMPARISON: US GUIDED ABD PARACENTESIS, March 20, 2018, 10:07. INDICATIONS : Ascites. MEDICAL HISTORY : Hypertension. Cirrhosis. Osteoporosis. Peripheral neuropathy. Ascites. CVA. Sleep apnea. SURGICAL HISTORY : Hysterectomy. Appendectomy. Paracentesis. Tumor removed from right hip. ENCOUNTER: Subsequent ACUITY: 4 - 6 months PAIN SCORE: 4/10 LOCATION: Right lower quadrant FLUID: Total volume of 8,000 cc of clear, yellow fluid was removed. Fluid was discarded. Paracentesis was therapeutic only. Post procedure scanning reveals no hematoma or other complication. TECHNIQUE: 1. Ultrasound guidance for abdominal paracentesis. 2. Paracentesis. The risks, benefits, and alternatives to ultrasound guided paracentesis were explained to the patient in detail including the risk of bleeding and infection. Written and verbal informed consent was obt ained. With the patient on the ultrasound table, ultrasound imaging was used to select the most appropriate approach for paracentesis. Overlying skin was prepped and draped in the usual sterile fashion and wi th a local anesthetic, a dermatotomy was made with an 11 blade scalpel. A 6 Kittitian Lwn-B-ocyqgvvb ca theter was introduced into the peritoneal cavity and fluid was collected. The patient tolerated the procedure well and left the ultrasound suite in stable condition. CONCLUSION: Uncomplicated ultrasound guided paracentesis. Patient received albumin per protocol. Obdulio Thomas MD FACR on April 05, 2018 at 13:43 Board Certified Radiologist. This report was verified electronically.
== END 2018-04-05 13:32 | disposition home or self-care (01) ==
LOC: HRAD 09:53 → HRIP 09:53 → HRAD 13:32
PROVIDERS: ATTEND Physician Assistant Medical
DX: K70.31 Alcoholic cirrhosis of liver with ascites (principal); I10 Essential (primary) hypertension; G62.9 Polyneuropathy, unspecified; G47.30 Sleep apnea, unspecified; M81.0 Age-related osteoporosis without current pathological fracture; Z86.73 Personal history of transient ischemic attack (TIA), and cerebral infarction without residual deficits
CPT/HCPCS: 49083; 96365; C1729; P9047

== ENCOUNTER 2018-04-26 09:48 | Day surgery (SDC) | payer MEDICARE ==
[2018-04-26] MEDS ORDERED: ALBUMIN 25% INJ 0 ML IV ONE (10:45)
[2018-04-26 11:10] VITALS: BP 129/85; PULSE 81; RESP 18; TEMP 98.4; O2SAT 98
--- NOTE | 2018-04-26 11:18 | RADRPT ---
EXAM DATE: 04/26/2018 11:12 AM EDT AGE/SEX: 67 years / Female INDICATIONS: Ascites. CLINICAL DATA: This is the patient's sequela encounter. Patient reports that signs and symptoms have been present for 3 weeks and indicates a pain score of 0/10. MEDICAL/SURGICAL HISTORY: . Hypertension. Cirrhosis. Osteoporosis. Peripheral neuropathy. Ascit es. CVA.Sleep apnea. . Hysterectomy. Appendectomy. Paracentesis. Tumor removed from right hip. [place] [facility] [place] 04/05/2018. . [facility], CT ABDOMEN AND PELVIS W/ CONTRAST. US ABDOMEN COMPLETE, 02/15/2017. US ABDOMEN COMPLETE 09/27/2010. 2018-02-14 FLUID: Total volume of 8,000 cc of clear, yellow fluid was removed. Fluid was sent to lab for ordered studie s. . . TECHNIQUE: Ultrasound guidance for abdominal paracentesis. Paracentesis. The risks, benefits, and alternatives to ultrasound guided paracentesis were explained to the patient in detail including the risk of bleeding and infection. Written and verbal informed consent was obt ained. With the patient on the ultrasound table, ultrasound imaging was used to select the most appropriate approach for paracentesis. Overlying skin was prepped and draped in the usual sterile fashion and wi th a local anesthetic, a dermatotomy was made with an 11 blade scalpel. A 6 Canadian Ofm-X-bhezvrfv ca theter was introduced into the peritoneal cavity and fluid was collected. Post procedure scanning reveals no hematoma or other complication. The patient tolerated the procedu re well and left the ultrasound suite in stable condition. CONCLUSION: Uncomplicated ultrasound-guided paracentesis. Patient received albumin per protocol. Electronically signed by: Obdulio Thomas MD 04/26/2018 11:17 AM EDT
[2018-04-26 11:30] VITALS: BP 140/85; PULSE 88; RESP 18; O2SAT 98
[2018-04-26 11:50] VITALS: BP 131/81; PULSE 78; RESP 18; O2SAT 98
[2018-04-26] MEDS ORDERED: LIDOCAINE HCL 1% PF 30 ML VIAL ONE (14:18)
== END 2018-04-26 11:50 | disposition home or self-care (01) ==
LOC: HRAD 09:48 → HRIP 09:51 → HRAD 11:50
PROVIDERS: ATTEND Physician Assistant Medical
DX: R18.8 Other ascites (principal); I10 Essential (primary) hypertension; K74.60 Unspecified cirrhosis of liver; M81.0 Age-related osteoporosis without current pathological fracture; G62.9 Polyneuropathy, unspecified; Z86.73 Personal history of transient ischemic attack (TIA), and cerebral infarction without residual deficits; G47.30 Sleep apnea, unspecified
CPT/HCPCS: 49083; 88112; 96365; C1729; P9047

== ENCOUNTER 2018-05-13 09:43 | Day surgery (SDC) | payer MEDICARE ==
[2018-05-13 10:18] VITALS: BP 89/53; PULSE 66; RESP 16; TEMP 99.1; O2SAT 95
[2018-05-13] MEDS ORDERED: ALBUMIN 25% INJ 0 ML IV ONE (11:15)
[2018-05-13] MEDS ORDERED: LIDOCAINE HCL 1% PF 30 ML VIAL ONE (11:24)
[2018-05-13 12:25] VITALS: BP 108/57; PULSE 78; RESP 18; TEMP 98.3; O2SAT 96
[2018-05-13 12:40] VITALS: BP 106/55; PULSE 80; RESP 17; O2SAT 98
--- NOTE | 2018-05-13 12:47 | RADRPT ---
EXAM DATE: 05/13/2018 12:20 PM EDT AGE/SEX: 67 years / Female INDICATIONS: Ascites. CLINICAL DATA: This is the patient's sequela encounter. Patient reports that signs and symptoms have been present for 1 day and indicates a pain score of 5/10. MEDICAL/SURGICAL HISTORY: . Hypertension. Cirrhosis. Osteoporosis. Peripheral neuropathy. Ascit es. CVA. Sleep apnea. . pend ectomy. Paracentesis. Tumor removed from right hip. Hysterectomy. [place] [facility] [place]UID[place] ABD PARACENTESIS, 04/26/2018. . FLUID: Total volume of 10,900 cc of clear, yellow fluid was removed. Fluid was discarded. Paracentesis was t herapeutic only. . . TECHNIQUE: Ultrasound guidance for abdominal paracentesis. Paracentesis. The risks, benefits, and alternatives to ultrasound guided paracentesis were explained to the patient in detail including the risk of bleeding and infection. Written and verbal informed consent was obt ained. With the patient on the ultrasound table, ultrasound imaging was used to select the most appropriate approach for paracentesis. Overlying skin was prepped and draped in the usual sterile fashion and wi th a local anesthetic, a dermatotomy was made with an 11 blade scalpel. A 6 Syrian Saf-T -centesis c atheter was introduced into the peritoneal cavity and fluid was collected. Post procedure scanning reveals no hematoma or other complication. The patient tolerated the procedu re well and left the ultrasound suite in stable condition. CONCLUSION: Uncomplicated paracentesis. Patient received albumin per protocol. Electronically signed by: Obdulio Thomas MD 05/13/2018 12:46 PM EDT
== END 2018-05-13 13:30 | disposition home or self-care (01) ==
LOC: HRAD 09:43 → HRIP 09:44 → HRAD 13:30
PROVIDERS: ATTEND Physician Assistant Medical
DX: R18.8 Other ascites (principal); K74.60 Unspecified cirrhosis of liver; I10 Essential (primary) hypertension; M81.0 Age-related osteoporosis without current pathological fracture
CPT/HCPCS: 49083; 96365; C1729; P9047

== ENCOUNTER 2018-07-08 14:41 | Inpatient (IN) ==
[2018-07-08] MEDS ORDERED: Tetanus/Diphtheria Toxoid Adult Vaccine Inj 0.5 ML Vial IM ONE (14:50)
--- NOTE | 2018-07-08 15:08 | ED ---
HPI General Chief Complaint: Fall Stated Complaint: Fall Time Seen by Provider: 07/08/18 14:43 Source: patient and EMS Mode of arrival: EMS Limitations: no limitations History of Present Illness HPI Narrative: 67-year-old female that presents to the ED for evaluation of left hip injury. Patient has significant history of cirrhosis and gets paracentesis. Patient states that she actually was supposed to have blood work today to get paracentesis tomorrow. Per patient she had a mechanical fall today at her bathroom. She did not hit her head had a superficial cut to her left arm and had deformity to her left hip. She was unable to get up on her own so EVAC was called. Per EV[facility] and per patient there is obvious deformity on the left hip. Patient keeps her hip close to her body and flexed. She denies any numbness, tingling, weakness. No prior injuries. Denies having orthopedic doctor. Patient herself declined any pain medication secondary to her liver disease. She denies take any blood thinners. Injury occurred today. Related Data Home Medications Medication Instructions Recorded Confirmed citalopram 20 mg PO DAILY 07/08/18 07/08/18 esomeprazole magnesium [Nexium] 20 mg PO DAILY 07/08/18 07/08/18 furosemide [Lasix] 40 mg PO DAILY 07/08/18 07/08/18 immune glob-plasma fra bovine 5 gm PO BID 07/08/18 07/08/18 [EnteraGam] [id number] [Creon] 1 cap PO TID 07/08/18 07/08/18 propranolol 10 mg PO DAILY 07/08/18 07/08/18 spironolactone 50 mg PO BID 07/08/18 07/08/18 Allergies Allergy/AdvReac Type Severity Reaction Status Date / Time zolpidem Allergy Severe Dizziness Verified 07/08/18 14:59 Review of Systems ROS: all other systems reviewed are negative PMFSH History History 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 Medical History Medical History Anxiety (Acute) Cirrhosis (Acute) Hx of hysterectomy (Acute) Osteopathia (Acute) Family History Family History Father CVA (cerebral vascular accident) Social History Social History Substance History: No History of Abuse Second Hand Smoke Exposure: No Smoking Status: Former smoker How Often Do You Have a Drink Containing Alcohol: Never Recent Travel in [facility] within the Last 8 Weeks: No Recent Out of Country Travel within the Last 8 Weeks: No Exam Narrative Exam Narrative: GENERAL: Well-appearing but somewhat edematous SKIN: Focused skin assessment warm/dry. HEAD: Atraumatic. Normocephalic. EYES: Pupils equal and round. No scleral icterus. No injection or drainage. ENT: No nasal bleeding or discharge. Mucous membranes pink and moist. NECK: Trachea midline. No JVD. CARDIOVASCULAR: Regular rate and rhythm. No murmur appreciated. RESPIRATORY: No accessory muscle use. Clear to auscultation. Breath sounds equal bilaterally. GASTROINTESTINAL: Abdomen soft, non-tender, very distended. Hepatic and splenic margins not palpable. MUSCULOSKELETAL: No obvious deformities. No clubbing. No cyanosis. edema 1+ in the lower legs. Full range of motion of the upper and lower extremities bilaterally. 2+ pulses bilaterally. NEUROLOGICAL: Awake and alert. No obvious cranial nerve deficits. Motor grossly within normal limits. Normal speech. PSYCHIATRIC: Appropriate mood and affect; insight and judgment normal. Course Initial Documented Vital Signs Temperature 98.2 F 07/08/18 14:59 Pulse Rate 77 07/08/18 14:59 Respiratory Rate 16 07/08/18 14:59 Blood Pressure 125/75 07/08/18 14:59 Pulse Oximetry 99 07/08/18 14:59 Last Documented Vital Signs Temperature 98.2 F 07/08/18 15:05 Pulse Rate 75 07/08/18 16:32 Respiratory Rate 20 07/08/18 16:32 Blood Pressure 121/71 07/08/18 16:32 Pulse Oximetry 100 07/08/18 16:32 Medical Decision Making [facility] Narrative Medical decision making narrative: 67-year-old female that presents to the ED for evaluation of left hip injury. Patient was properly examined and was found to have signs and symptoms consistent with significant ascites to her abdomen as well as what appears to be likely left hip fracture. Labs and imaging order. Patient was again offered pain medication but she declined secondary to her liver disease. Labs and imaging came back and did show what appears to be left hip fracture. Patient was offered pain medication but apparently did decline at this time again. The did recommend that I speak with the patient's GI specialist or primary care doctor to evaluate whether she can actually get any pain medication as they are very concerned that as patient is seen the transplant list without any medication will affect her liver more and counts are more issues. I was able to spoke with Dr Benedict the patient's GI specialist who stated that patient should stay away from any NSAIDs and could start on low dose of narcotic pain medication as this likely is much interference with the patient's liver. He then stated the patient could do up to 2000 mg of Tylenol a day. Patient just has to be monitored for alteration secondary to her cirrhosis. This was discussed with the patient and the family member and bedside were agree with low-dose of morphine to help with her pain. Case was discussed with Dr. Banks who agreed admission to her service. Dr Martinez, my attending was made aware of findings and agrees with admission plan. Differential Diagnosis Differential Diagnosis: Hip fracture versus liver disease versus fall versus ascites Medical Records Medical records reviewed: Yes I reviewed the patient's medical records. Lab Data Lab results reviewed: Yes I reviewed the patient's lab results. Result diagrams: 07/08/18 14:50 07/08/18 14:50 Lab Results 07/08/18 07/08/18 07/08/18 Range/Units 14:50 14:50 14:50 WBC 5.4 (4.0-11.0) th/mm3 RBC 3.99 L (4.00-5.30) mil/mm3 Hgb 13.2 (11.6-15.3) gm/dL Hct 37.7 (35.0-46.0) % MCV 94.4 (80.0-100.0) fL MCH 33.1 (27.0-34.0) pg MCHC 35.1 (32.0-36.0) % RDW 17.5 H (11.6-17.2) % Plt Count 113 L (150-450) th/mm3 MPV 9.0 (7.0-11.0) fL Neut % (Auto) 63.5 (16.0-70.0) % Lymph % (Auto) 18.5 (9.0-44.0) % [place] % (Auto) 14.8 H (0.0-8.0) % Eos % (Auto) 1.4 (0.0-4.0) % Baso % (Auto) 1.8 (0.0-2.0) % Neut # (Auto) 3.4 (1.8-7.7) th/mm3 Lymph # (Auto) 1.0 (1.0-4.8) th/mm3 [place] # (Auto) 0.8 (0.0-0.9) th/mm3 Eos # (Auto) 0.1 (0.0-0.4) th/mm3 Baso # (Auto) 0.1 (0.0-0.2) th/mm3 WBC Differential . Differential Comment Auto diff final PT 13.6 H (9.8-11.6) sec INR 1.3 Ratio APTT 25.8 (24.3-30.1) sec Sodium 133 L (136-145) meq/L Potassium 4.5 (3.5-5.1) meq/L Chloride 101 (98-107) meq/L Carbon Dioxide 22.0 (21.0-32.0) meq/L Anion Gap 10 (5-15) meq/L BUN 18 (7-18) mg/dL Creatinine 1.00 (0.50-1.00) mg/dL Estimated GFR 55 L (>89) mL/min Random Glucose 80 (74-106) mg/dL Calcium 9.1 (8.5-10.1) mg/dL Total Bilirubin 4.3 H (0.2-1.0) mg/dL AST 66 H (15-37) U/L ALT 29 (10-53) U/L Alkaline Phosphatase 120 H (45-117) U/L Ammonia (11-32) mcmol/L Total Protein 7.0 (6.4-8.2) g/dL Albumin 2.3 L (3.4-5.0) g/dL 07/08/18 Range/Units 15:55 WBC (4.0-11.0) th/mm3 RBC (4.00-5.30) mil/mm3 Hgb (11.6-15.3) gm/dL Hct (35.0-46.0) % MCV (80.0-100.0) fL MCH (27.0-34.0) pg MCHC (32.0-36.0) % RDW (11.6-17.2) % Plt Count (150-450) th/mm3 MPV (7.0-11.0) fL Neut % (Auto) (16.0-70.0) % Lymph % (Auto) (9.0-44.0) % [place] % (Auto) (0.0-8.0) % Eos % (Auto) (0.0-4.0) % Baso % (Auto) (0.0-2.0) % Neut # (Auto) (1.8-7.7) th/mm3 Lymph # (Auto) (1.0-4.8) th/mm3 [place] # (Auto) (0.0-0.9) th/mm3 Eos # (Auto) (0.0-0.4) th/mm3 Baso # (Auto) (0.0-0.2) th/mm3 WBC Differential Differential Comment PT (9.8-11.6) sec INR Ratio APTT (24.3-30.1) sec Sodium (136-145) meq/L Potassium (3.5-5.1) meq/L Chloride (98-107) meq/L Carbon Dioxide (21.0-32.0) meq/L Anion Gap (5-15) meq/L BUN (7-18) mg/dL Creatinine (0.50-1.00) mg/dL Estimated GFR (>89) mL/min Random Glucose (74-106) mg/dL Calcium (8.5-10.1) mg/dL Total Bilirubin (0.2-1.0) mg/dL AST (15-37) U/L ALT (10-53) U/L Alkaline Phosphatase (45-117) U/L Ammonia 71 H (11-32) mcmol/L Total Protein (6.4-8.2) g/dL Albumin (3.4-5.0) g/dL Imaging Data Attestation: I personally reviewed and interpreted this imaging study as follows : Radiologist's impression: Chest X-Ray 07/08/18 14:50 CONCLUSION: Minimal bibasilar parental changes, nonspecific. Femur X-Ray 07/08/18 14:50 CONCLUSION: Trochanteric fracture left hip Hip X-Ray 07/08/18 14:50 CONCLUSION: Intertrochanteric fracture left hip with moderate angulation. Discharge Plan Physicians Team ED Provider: Julianna Martinez ED Midlevel Provider: Perry Souza Primary Care Provider: UNKNOWN, Rxs /Orders / Referrals /Forms Prescriptions: No Action furosemide [Lasix] 40 mg Tablet 40 mg PO DAILY RF: 0 propranolol 10 mg Tablet 10 mg PO DAILY RF: 0 citalopram 20 mg Tablet 20 mg PO DAILY RF: 0 spironolactone 50 mg Tablet 50 mg PO BID RF: 0 esomeprazole magnesium [Nexium] 20 mg Capsule,Delayed Release(Dr/Ec) 20 mg PO DAILY RF: 0 [id number]-vdlqeqzm-ykcobrc [Creon] 24,000-76,000 -120,000 unit Capsule,Delayed Release(Dr/Ec) 1 cap PO TID RF: 0 immune glob-plasma fra bovine [EnteraGam] 5 gram Powder In Packet 5 gm PO BID RF: 0 Discharge Interventions Interventions: Vital Signs Last Done: 07/08/18 16:32 Status ED Status: With Doctor
[2018-07-08 15:33] LABS: Baso # (Auto) 0.1 th/mm3 (0.0-0.2); Baso % (Auto) 1.8 % (0.0-2.0); Eos # (Auto) 0.1 th/mm3 (0.0-0.4); Eos % (Auto) 1.4 % (0.0-4.0); Hematocrit 37.7 % (35.0-46.0); Hemoglobin 13.2 gm/dL (11.6-15.3); Lymph % (Auto) 18.5 % (9.0-44.0); Mean Corpuscular HGB Conc 35.1 % (32.0-36.0); Mean Corpuscular Hemoglobin 33.1 pg (27.0-34.0); Mean Corpuscular Volume 94.4 fL (80.0-100.0); Mono # (Auto) 0.8 th/mm3 (0.0-0.9); Mono % (Auto) 14.8 % (0.0-8.0); Neut # (Auto) 3.4 th/mm3 (1.8-7.7); Neut % (Auto) 63.5 % (16.0-70.0); Platelet Count 113 th/mm3 (150-450); Red Blood Count 3.99 mil/mm3 (4.00-5.30); Red Cell Distribution Width 17.5 % (11.6-17.2); White Blood Count 5.4 th/mm3 (4.0-11.0)
[2018-07-08 15:35] LABS: Activated Partial Thrombo Time 25.8 sec (24.3-30.1); INR 1.3 Ratio; Prothrombin Time 13.6 sec (9.8-11.6)
--- NOTE | 2018-07-08 15:50 | XR ---
EXAM DATE: 07/08/2018 3:40 PM EDT AGE/SEX: 67 years / Female INDICATIONS: Fell today, pain left chest and left leg CLINICAL DATA: This is the patient's initial encounter. Patient reports that signs and symptoms have been present for 1 day and indicates a pain score of 10/10. MEDICAL/SURGICAL HISTORY: Cirrhosis. None. COMPARISON: [facility], CHEST SINGLE AP, 02/14/2018. . FINDINGS: Minimal bibasilar parenchymal changes are evident worse on the left than the right. The heart and pul monary vascularity are normal. The portion of the bony skeleton visualized is unremarkable. CONCLUSION: Minimal bibasilar parental changes, nonspecific. Electronically signed by: Obdulio Thomas MD 07/08/2018 3:48 PM EDT
--- NOTE | 2018-07-08 15:50 | XR ---
EXAM DATE: 07/08/2018 3:45 PM EDT AGE/SEX: 67 years / Female INDICATIONS: Fell today, pain left hip and femur CLINICAL DATA: This is the patient's initial encounter. Patient reports that signs and symptoms have been present for 1 day and indicates a pain score of 10/10. MEDICAL/SURGICAL HISTORY: Cirrhosis. None. COMPARISON: [facility] – [place], FEMUR LEFT 2V, 07/08/2018. . FINDINGS: Intertrochanteric fracture of the left hip. Femoral head is aligned with the acetabulum. Distal femur intact. CONCLUSION: Intertrochanteric fracture left hip with moderate angulation. Electronically signed by: Obdulio Thomas MD 07/08/2018 3:49 PM EDT
[2018-07-08 15:51] LABS: Alanine Aminotransferase 29 U/L (10-53)
--- NOTE | 2018-07-08 15:51 | XR ---
EXAM DATE: 07/08/2018 3:49 PM EDT AGE/SEX: 67 years / Female INDICATIONS: Fell today, pain left hip and femur, unable to extend leg CLINICAL DATA: This is the patient's initial encounter. Patient reports that signs and symptoms have been present for 1 day and indicates a pain score of 10/10. MEDICAL/SURGICAL HISTORY: Cirrhosis. None. COMPARISON: No prior exams available for comparison. FINDINGS: Intertrochanteric fracture left hip. Distal femur intact. CONCLUSION: Trochanteric fracture left hip Electronically signed by: Obdulio Thomas MD 07/08/2018 3:50 PM EDT
[2018-07-08 15:54] LABS: Alkaline Phosphatase 120 U/L (45-117)
[2018-07-08 16:13] LABS: Albumin 2.3 g/dL (3.4-5.0); Anion Gap 10 meq/L (5-15); Aspartate Aminotransferase 66 U/L (15-37); Blood Urea Nitrogen 18 mg/dL (7-18); Calcium 9.1 mg/dL (8.5-10.1); Chloride 101 meq/L (98-107); Glomerular Filtration Rate 55 mL/min (>89); Glucose,Random 80 mg/dL (74-106); Potassium 4.5 meq/L (3.5-5.1); Sodium 133 meq/L (136-145)
--- NOTE | 2018-07-08 16:42 | P.HP ---
History of Present Illness Service: [facility] Primary Care Physician: UNKNOWN Chief Complaint: "I fell" History of Present Illness: 67-year-old female with a past medical history significant for liver disease secondary to alcohol abuse, anxiety, and osteopenia who presents to the emergency department via [facility] after a fall. Patient is seen and evaluated in E- pod with at bedside. Patient reports that she was in her bathroom getting ready to have lab work done this morning for planned paracentesis which was supposed to happen tomorrow when she lost her balance. She denies any dizziness, lightheadedness, shortness of breath, chest pain prior to fall. She denies any trauma to her head or loss of consciousness. Per [facility] documentation patient had obvious deformity of left hip. Patient has also been reluctant to taking any kind of pain medication and she reports she is currently on a liver transplant list and undergoing testing and fears. She was instructed by her liver specialist that she should not take anything for pain. She reports that her liver specialist is Dr. Marichuy TUCKER in [place]. She has been undergoing paracentesis for over a year now. At the current moment she endorses left hip pain, denies any numbness or tingling to the left lower extremity. She denies any shortness of breath, nausea, headache, or chest pain at the moment. Lab work completed in the emergency department reviewed. Imaging revealed left trochanteric fracture. Patient will be admitted and orthopedic service is consulted. Consult will also be placed for ultrasound-guided paracentesis possibly tomorrow. ED PA has discussed with who agrees with low-dose IV morphine for pain and up to 2 g of acetaminophen daily. 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 - Medical History Medical History: Medical History (Last Updated 07/08/18 @ 17:15 by Warren Maldonado) Anxiety Cirrhosis Hx of hysterectomy Osteopenia - Family History Family History: Family History (Last Updated 07/08/18 @ 16:42 by Warren Maldonado) Father CVA (cerebral vascular accident) - Tobacco History Second Hand Smoke Exposure: No Tobacco Use In Past 30 Days: No Smoking Status: Former smoker - Alcohol History How Often Do You Have a Drink Containing Alcohol: Never (Sober from alcohol) - Travel History Recent Travel in the [place] Within the Last 8 Weeks: No Recent Travel Out of the Country Within the Last 8 Weeks: No - Immunization History Tetanus Immunization: Unsure Hx Influenza Vaccine This Season: No Medications and Allergies Allergies Allergy/AdvReac Type Severity Reaction Status Date / Time zolpidem Allergy Severe Dizziness Verified 07/08/18 14:59 Home Medications Medication Instructions Recorded Confirmed Type citalopram 20 mg PO DAILY 07/08/18 07/08/18 History esomeprazole magnesium [Nexium] 20 mg PO DAILY 07/08/18 07/08/18 History furosemide [Lasix] 40 mg PO DAILY 07/08/18 07/08/18 History immune glob-plasma fra bovine 5 gm PO BID 07/08/18 07/08/18 History [EnteraGam] [id number] [Creon] 1 cap PO TID 07/08/18 07/08/18 History propranolol 10 mg PO DAILY 07/08/18 07/08/18 History spironolactone 50 mg PO BID 07/08/18 07/08/18 History Exam Vital signs: Vital Signs 07/08/18 14:59 07/08/18 15:05 07/08/18 16:32 Temperature 98.2 F 98.2 F Pulse Rate 77 74 75 Respiratory Rate 16 16 20 Blood Pressure 125/75 121/73 121/71 Pulse Oximetry 99 99 100 Intake & Output 07/07/18 07/08/18 07/08/18 18:59 06:59 18:59 Weight 77.111 kg Narrative: GENERAL: Well-developed, female with large abdomen, visibly uncomfortable with left hip pain. SKIN: Warm and dry. Right upper thigh ecchymotic area, appears healing. HEAD: Atraumatic. Normocephalic. EYES: Pupils equal and round. No scleral icterus. No injection or drainage. ENT: No nasal bleeding or discharge. Mucous membranes pink and moist. NECK: Trachea midline. No JVD. CARDIOVASCULAR: Regular rate and rhythm. RESPIRATORY: No accessory muscle use. Clear to auscultation. Breath sounds equal bilaterally. GASTROINTESTINAL: Round, ascites, thought, distant bowel sounds. MUSCULOSKELETAL: Extremities without clubbing or cyanosis. Bilateral lower extremity edema +3, bilateral foot edema +4. NEUROLOGICAL: Awake and alert, oriented 3. No obvious cranial nerve deficits. Motor grossly within normal limits. Left lower extremity strength limited secondary to pain. Normal speech. PSYCHIATRIC: Appropriate mood and affect; insight and judgment normal. Results - Labs CBC & Chem 7: 07/08/18 14:50 07/08/18 14:50 Labs: Laboratory Results - last 24 hr 07/08/18 07/08/18 07/08/18 14:50 14:50 14:50 WBC 5.4 RBC 3.99 L Hgb 13.2 Hct 37.7 MCV 94.4 MCH 33.1 MCHC 35.1 RDW 17.5 H Plt Count 113 L MPV 9.0 Neut % (Auto) 63.5 Lymph % (Auto) 18.5 [place] % (Auto) 14.8 H Eos % (Auto) 1.4 Baso % (Auto) 1.8 Neut # (Auto) 3.4 Lymph # (Auto) 1.0 [place] # (Auto) 0.8 Eos # (Auto) 0.1 Baso # (Auto) 0.1 WBC Differential . Differential Comment Auto diff final PT 13.6 H INR 1.3 APTT 25.8 Sodium 133 L Potassium 4.5 Chloride 101 Carbon Dioxide 22.0 Anion Gap 10 BUN 18 Creatinine 1.00 Estimated GFR 55 L Random Glucose 80 Calcium 9.1 Total Bilirubin 4.3 H AST 66 H ALT 29 Alkaline Phosphatase 120 H Ammonia Total Protein 7.0 Albumin 2.3 L 07/08/18 15:55 WBC RBC Hgb Hct MCV MCH MCHC RDW Plt Count MPV Neut % (Auto) Lymph % (Auto) [place] % (Auto) Eos % (Auto) Baso % (Auto) Neut # (Auto) Lymph # (Auto) [place] # (Auto) Eos # (Auto) Baso # (Auto) WBC Differential Differential Comment PT INR APTT Sodium Potassium Chloride Carbon Dioxide Anion Gap BUN Creatinine Estimated GFR Random Glucose Calcium Total Bilirubin AST ALT Alkaline Phosphatase Ammonia 71 H Total Protein Albumin - Imaging Impressions Chest X-Ray 07/08/18 14:50 CONCLUSION: Minimal bibasilar parental changes, nonspecific. Femur X-Ray 07/08/18 14:50 CONCLUSION: Trochanteric fracture left hip Hip X-Ray 07/08/18 14:50 CONCLUSION: Intertrochanteric fracture left hip with moderate angulation. Caprini VTE Risk Assessment Caprini VTE Risk Assessment: Moderate/High Risk (score >= 2) Caprini Risk Assessment Model: Point Value = 1 Point Value = 2 Point Value = 3 Point Value = 5 Age 41-60 Minor surgery BMI > 25 kg/m2 Swollen legs Varicose veins or History of unexplained or recurrent spontaneous Oral contraceptives or hormone replacement Sepsis (< 1 month) Serious lung disease, including pneumonia (< 1 month) Abnormal pulmonary function Acute myocardial infarction Congestive heart failure (< 1 month) History of inflammatory bowel disease Medical patient at bed rest Age 61-74 Arthroscopic surgery Major open surgery (> 45 min) Laparoscopic surgery (> 45 min) Malignancy Confined to bed (> 72 hours) Immobilizing plaster cast Central venous access Age >= 75 History of VTE Family history of VTE Factor V Leiden Prothrombin [id number] Lupus anticoagulant Anticardiolipin antibodies Elevated serum homocysteine Heparin-induced thrombocytopenia Other congenital or acquired thrombophilia Stroke (< 1 month) Elective arthroplasty Hip, pelvis, or leg fracture Acute spinal cord injury (< 1 month) Prophylaxis Regimen: Total Risk Factor Score Risk Level Prophylaxis Regimen 0-1 Low Early ambulation 2 Moderate Order ONE of the following: *Sequential Compression Device (SCD) *Heparin 5000 units SQ BID 3-4 Higher Order ONE of the following medications: *Heparin 5000 units SQ TID *Enoxaparin/Lovenox 40 mg SQ daily (WT < 150 kg, CrCl > 30 mL/min) *Enoxaparin/Lovenox 30 mg SQ daily (WT < 150 kg, CrCl > 10-29 mL/min) *Enoxaparin/Lovenox 30 mg SQ BID (WT < 150 kg, CrCl > 30 mL/min) AND/OR *Sequential Compression Device (SCD) 5 or more Highest Order ONE of the following medications: *Heparin 5000 units SQ TID (Preferred with Epidurals) *Enoxaparin/Lovenox 40 mg SQ daily (WT < 150 kg, CrCl > 30 mL/min) *Enoxaparin/Lovenox 30 mg SQ daily (WT < 150 kg, CrCl > 10-29 mL/min) *Enoxaparin/Lovenox 30 mg SQ BID (WT < 150 kg, CrCl > 30 mL/min) AND *Sequential Compression Device (SCD) Assessment and Plan - Assessment (1) Intertrochanteric fracture of left hip Code(s): S72.142A - Displaced intertrochanteric fracture of left femur, initial encounter for closed fracture Status: Acute (2) Liver disease due to alcohol Code(s): K70.9 - Alcoholic liver disease, unspecified Status: Acute (3) Ascites Code(s): R18.8 - Other ascites Status: Acute - Plan 67-year-old female with a past medical history significant for liver disease secondary to alcohol abuse, anxiety, and osteopenia who presents to the emergency department after mechanical fall resulting in left trochanteric fracture. Mechanical fall Left hip fracture -Femur x-ray reviewed, trochanteric fracture left hip. -Hip x-ray reviewed, intratrochanteric fracture left hip with moderate angulation. -Consult orthopedics for further recommendations, greatly appreciate assistance -Pain control with IV morphine -Check vitamin D level Chronic alcoholic liver disease Cirrhosis Ascites -Consult ultrasound department for paracentesis -Ammonia level 71, recheck in the a.m. -Continue Creon, Lasix, spironolactone, propranolol, and Protonix -N.p.o. after midnight for possible paracentesis -Avoid hepatotoxins DVT prophylaxis-JOEL Oquendo Discussed Condition With: Discussed with patient, , LAURA Amador, and
[2018-07-08] MEDS ORDERED: Bisacodyl 10 MG Supp RECTAL PRN (16:52)
[2018-07-08] MEDS ORDERED: Morphine Sulfate Inj 2 MG/ML Vial IV.PUSH ONE (16:53)
[2018-07-08] MEDS: Morphine Inj 4 MG/ML Vial IV.PUSH PRN (20:01)
[2018-07-08] MEDS: Lipase/Protease/Amylase 24/76/120 DR Capsule PO SCH (20:02)
[2018-07-08] MEDS ORDERED: [UNRECOGNIZED DRUG - OTHER] PO SCH (21:00)
[2018-07-08] MEDS ORDERED: ENTERAGAM PO SCH (21:00)
[2018-07-08] MEDS: Spironolactone 50 MG Tablet PO SCH (21:50)
[2018-07-09] MEDS ORDERED: Chlorhexidine Gluconate 2% 1 Pack (2 Cloths) TOPICAL SCH (00:15)
[2018-07-09] MEDS ORDERED: Metoprolol Tartrate 25 MG Tablet PO SCH (00:15)
[2018-07-09] MEDS ORDERED: Sodium Chlor 0.9% Inj 500 ML IV.SIG SCH (01:00)
[2018-07-09 05:44] LABS: Baso # (Auto) 0.1 th/mm3 (0.0-0.2); Baso % (Auto) 0.6 % (0.0-2.0); Eos % (Auto) 0.5 % (0.0-4.0); Hematocrit 33.6 % (35.0-46.0); Hemoglobin 11.6 gm/dL (11.6-15.3); Lymph # (Auto) 1.2 th/mm3 (1.0-4.8); Lymph % (Auto) 14.3 % (9.0-44.0); Mean Corpuscular HGB Conc 34.5 % (32.0-36.0); Mean Corpuscular Hemoglobin 32.9 pg (27.0-34.0); Mean Corpuscular Volume 95.4 fL (80.0-100.0); Mean Platelet Volume 8.7 fL (7.0-11.0); Mono # (Auto) 1.3 th/mm3 (0.0-0.9); Mono % (Auto) 15.5 % (0.0-8.0); Neut # (Auto) 5.8 th/mm3 (1.8-7.7); Neut % (Auto) 69.1 % (16.0-70.0); Platelet Count 115 th/mm3 (150-450); Red Blood Count 3.52 mil/mm3 (4.00-5.30); Red Cell Distribution Width 17.8 % (11.6-17.2); White Blood Count 8.4 th/mm3 (4.0-11.0)
[2018-07-09 05:53] LABS: Activated Partial Thrombo Time 26.6 sec (24.3-30.1); INR 1.4 Ratio; Prothrombin Time 14.3 sec (9.8-11.6)
[2018-07-09 06:12] LABS: Calcium 8.8 mg/dL (8.5-10.1); Carbon Dioxide 22.7 meq/L (21.0-32.0); Potassium 4.3 meq/L (3.5-5.1)
--- NOTE | 2018-07-09 06:42 | P.CONOP ---
[facility] Orthopedics Consult Note - [facility] Consult date: 07/09/18 Consult reason: fracture (left intertroch hip fracture) Chief complaint: acute left hip fracture,ascitis, liver Narrative: Yane is a 67-year-old female. She had a fall at home. She was getting dressed when she lost her balance and fell. She landed on her left side. She had immediate left hip pain. She was unable to stand or ambulate. She was in the emergency room where x-rays revealed a left hip intertrochanteric fracture. Pain is worse with movement and improved with rest. She denies dizziness, loss of consciousness, or syncope. She describes mechanical fall. Pain is worse with movement is improved with rest. She has severe liver disease secondary to history of alcohol abuse and was scheduled for paracentesis later this week. Currently her only complaint is her left hip. Review of Systems Patient denies fevers, chills, weight loss, headache, visual changes, hearing loss, chest pain, palpitations, shortness of breath, nausea, vomiting, no urinary changes, diarrhea, bowel changes, neck pain, back pain, skin rashes, weakness of extremities, numbness of extremities, anxiety, or depression. She complains of left hip pain. She also complains of abdominal distention secondary to ascites. All other systems reviewed negative except as stated in [facility] - History History Provided By: Patient - Medical History Medical History: Medical History (Last Reviewed 07/08/18 @ 21:35 by Antonina Mills RN) Anxiety Cirrhosis Hx of hysterectomy Osteopenia - Family History Family History: Family History (Last Reviewed 07/08/18 @ 21:35 by Antonina Mills RN) Father CVA (cerebral vascular accident) - Tobacco History Second Hand Smoke Exposure: No Tobacco Use In Past 30 Days: No Smoking Status: Former smoker Tobacco Type: Cigarettes - Alcohol History How Often Do You Have a Drink Containing Alcohol: Never - Substance Use History Substance History: No History of Abuse - Travel History Recent Travel in the [place] Within the Last 8 Weeks: No Recent Travel Out of the Country Within the Last 8 Weeks: No - Immunization History Tetanus Immunization: <5 Years Hx Influenza Vaccine This Season: No Medications and Allergies Active Medications: Active Medications Al Hydroxide/Mg Hydroxide (Milk Of Magnesia Liq) 30 ml PO Q12H PRN PRN Reason: Mild Constipation Lipase/Protease/Amylase (Kymberly Conley /120) 1 cap PO TID [facility] Last Admin: 07/08/18 20:02 Dose: Not Given Bisacodyl (Dulcolax Supp) 10 mg RECTAL DAILY PRN PRN Reason: SEVERE CONSITIPATION Chlorhexidine Gluconate (Chlorhexidine 2% Cloth) 3 pack TOPICAL ACCOUNTING CLERK [facility] Stop: 07/12/18 00:10 Citalopram Hydrobromide (Celexa) 20 mg PO DAILY [facility] Furosemide (Lasix) 40 mg PO DAILY [facility] Sodium Chloride (Ns Inj) 500 mls @ 30 mls/hr IV.SIG .Q10H [facility] Stop: 07/12/18 00:10 Lactated Ringer's (Lr 1000 Ml Inj) 1,000 mls @ 30 mls/hr IV.SIG .Q24H [facility] Stop: 07/12/18 00:10 Last Admin: 07/09/18 04:54 Dose: Not Given Lactulose (Lactulose Liq) 30 ml PO DAILY PRN PRN Reason: SEVERE CONSITIPATION Metoprolol Tartrate (Lopressor) 25 mg PO ACCOUNTING CLERK [facility] Stop: 07/12/18 00:10 Morphine Sulfate (Morphine Inj) 2 mg IV.PUSH Q4H PRN PRN Reason: pain 2-10 Last Admin: 07/08/18 20:01 Dose: 2 mg Pantoprazole Sodium (Protonix) 20 mg PO DAILY [facility] Patient Own Medication: Enteragam(Serum- Derived Bovine Immunoglobulin/Protein Isolate)5 Gm 0 each PO BID [facility] Povidone Iodine (Betadine 5% Antisepsis Kit) 1 applicatio EACH NARE ACCOUNTING CLERK [facility] Stop: 07/12/18 00:10 Propranolol HCl (Inderal) 10 mg PO DAILY [facility] Sennosides (Senokot) 17.2 mg PO Q12H PRN PRN Reason: Moderate Constipation Spironolactone (Aldactone) 50 mg PO BID [facility] Last Admin: 07/08/18 21:50 Dose: 50 mg Allergies Allergy/AdvReac Type Severity Reaction Status Date / Time zolpidem Allergy Severe Dizziness Verified 07/08/18 14:59 Home Medications Medication Instructions Recorded Confirmed Type citalopram 20 mg PO DAILY 07/08/18 07/08/18 History esomeprazole magnesium [Nexium] 20 mg PO DAILY 07/08/18 07/08/18 History furosemide [Lasix] 40 mg PO DAILY 07/08/18 07/08/18 History immune glob-plasma fra bovine 5 gm PO BID 07/08/18 07/08/18 History [EnteraGam] [id number] [Creon] 1 cap PO TID 07/08/18 07/08/18 History propranolol 10 mg PO DAILY 07/08/18 07/08/18 History spironolactone 50 mg PO BID 07/08/18 07/08/18 History Exam Vital signs: Vital Signs 07/08/18 14:59 07/08/18 15:05 07/08/18 16:32 Temperature 98.2 F 98.2 F Pulse Rate 77 74 75 Respiratory Rate 16 16 20 Blood Pressure 125/75 121/73 121/71 Pulse Oximetry 99 99 100 07/08/18 17:56 07/08/18 20:00 07/09/18 00:00 Temperature 98 F 98 F Pulse Rate 78 80 71 Respiratory Rate 20 18 15 Blood Pressure 127/62 110/68 115/54 L Pulse Oximetry 96 96 Intake & Output 07/08/18 07/08/18 07/09/18 06:59 18:59 06:59 Weight 77.111 kg 77 kg Other: Date of Last Bowel Movement 07/07/18 Weight On Admission 77 kg Narrative: Yane is a pleasant 67-year-old female. She is awake and alert. She appears well-developed well-nourished. Examination of abdomen reveals a large amount of abdominal fluid with distention. Examination of bilateral upper extremities reveals no pain with shoulder, elbow , wrist, or finger motion. Skin is intact. Radial pulses are palpable. Sensation is intact in radial, ulnar, and median nerve distributions. Ground Surveillance Systems Operator strength is +5. Forearm compartments are soft and nontender. Examination of right leg reveals no pain with hip, knee, or ankle motion. SHe does have edema of bilateral lower extremities. Sensation is intact. Skin is intact. Examination of left leg reveals pain with any hip motion. She is tender to palpation over the proximal femur. Skin is intact. She has mild to moderate swelling with edema of her left leg. Calf and thigh compartments are soft. Sensation is intact. - Constitutional no acute distress, average body habitus - Routine HEENT Exam Head: Present: normocephalic, atraumatic Eye: Present: EOMI, PERRL ENT: Present: mucous membranes moist - Routine Neck Exam Present: supple, full ROM - Routine Abdominal Exam Present: distended, firm - Routine Skin Exam Present: intact, warm - Routine Neurological Exam Present: alert, oriented X3 Results - Labs Result Diagrams: 07/09/18 05:20 07/09/18 05:20 Labs: Laboratory Results - last 24 hr 07/08/18 07/08/18 07/08/18 14:50 14:50 14:50 WBC 5.4 RBC 3.99 L Hgb 13.2 Hct 37.7 MCV 94.4 MCH 33.1 MCHC 35.1 RDW 17.5 H Plt Count 113 L MPV 9.0 Neut % (Auto) 63.5 Lymph % (Auto) 18.5 [place] % (Auto) 14.8 H Eos % (Auto) 1.4 Baso % (Auto) 1.8 Neut # (Auto) 3.4 Lymph # (Auto) 1.0 [place] # (Auto) 0.8 Eos # (Auto) 0.1 Baso # (Auto) 0.1 WBC Differential . Differential Comment Auto diff final PT 13.6 H INR 1.3 APTT 25.8 Sodium 133 L Potassium 4.5 Chloride 101 Carbon Dioxide 22.0 Anion Gap 10 BUN 18 Creatinine 1.00 Estimated GFR 55 L Random Glucose 80 Calcium 9.1 Total Bilirubin 4.3 H AST 66 H ALT 29 Alkaline Phosphatase 120 H Ammonia Total Protein 7.0 Albumin 2.3 L 07/08/18 07/09/18 07/09/18 15:55 05:20 05:20 WBC 8.4 D RBC 3.52 L Hgb 11.6 Hct 33.6 L MCV 95.4 MCH 32.9 MCHC 34.5 RDW 17.8 H Plt Count 115 L MPV 8.7 Neut % (Auto) 69.1 Lymph % (Auto) 14.3 [place] % (Auto) 15.5 H Eos % (Auto) 0.5 Baso % (Auto) 0.6 Neut # (Auto) 5.8 Lymph # (Auto) 1.2 [place] # (Auto) 1.3 H Eos # (Auto) 0.0 Baso # (Auto) 0.1 WBC Differential . Differential Comment Auto diff final PT 14.3 H INR 1.4 APTT 26.6 Sodium Potassium Chloride Carbon Dioxide Anion Gap BUN Creatinine Estimated GFR Random Glucose Calcium Total Bilirubin AST ALT Alkaline Phosphatase Ammonia 71 H Total Protein Albumin 07/09/18 07/09/18 05:20 05:20 WBC RBC Hgb Hct MCV MCH MCHC RDW Plt Count MPV Neut % (Auto) Lymph % (Auto) [place] % (Auto) Eos % (Auto) Baso % (Auto) Neut # (Auto) Lymph # (Auto) [place] # (Auto) Eos # (Auto) Baso # (Auto) WBC Differential Differential Comment PT INR APTT Sodium 134 L Potassium 4.3 Chloride 100 Carbon Dioxide 22.7 Anion Gap 11 BUN 23 H Creatinine 1.00 Estimated GFR 55 L Random Glucose 122 H Calcium 8.8 Total Bilirubin AST ALT Alkaline Phosphatase Ammonia 79 H Total Protein Albumin - Diagnostic results Imaging: Impressions Chest X-Ray 07/08/18 14:50 CONCLUSION: Minimal bibasilar parental changes, nonspecific. Femur X-Ray 07/08/18 14:50 CONCLUSION: Trochanteric fracture left hip Hip X-Ray 07/08/18 14:50 CONCLUSION: Intertrochanteric fracture left hip with moderate angulation. Hip x-ray: report reviewed, image reviewed Assessment and Plan - Problem List (1) Liver disease due to alcohol Code(s): K70.9 - Alcoholic liver disease, unspecified Status: Acute (2) Intertrochanteric fracture of left hip Code(s): S72.142A - Displaced intertrochanteric fracture of left femur, initial encounter for closed fracture Status: Acute - Assessment and Plan Yane has a displaced left hip intertrochanteric fracture. Treatment options were discussed. Patient will need surgery in order to heal the fracture and regain ambulatory status. At this point I would recommend left hip reduction with intramedullary nail fixation. Risks of surgery were discussed including bleeding, infection, nonunion, malunion, painful hardware, as well as medical complications including blood clots, stroke, heart attack, and . All questions were answered. I will plan on surgery later today if she is medically cleared. Patient also has severe ascites. She is scheduled for paracentesis today. She will need continue medical management of her liver disease. Postoperatively patient will need to be placed on appropriate DVT prophylaxis. She will be started on calcium and vitamin D supplementation to assist with her osteoporosis Physical therapy will be consulted for gait training. A mid-level provider in my office (nurse practitioner or physician special events assistant) may see this patient on follow-up visits and continue to implement the objectives of this plan including: Starting or adjusting medications, injections , cast application, orthotics, brace application, physical therapy, radiological studies (including x-ray, MRI, CT, ultrasound, bone scan), vascular studies, neurologic studies, specialist consultation, and proceeding with surgical management, as appropriate.
[2018-07-09] MEDS: Furosemide 40 MG Tablet PO SCH (08:12)
[2018-07-09] MEDS: Spironolactone 50 MG Tablet PO SCH ×2 (08:13→22:08)
[2018-07-09] MEDS: Citalopram 20 MG Tablet PO SCH (08:13)
[2018-07-09] MEDS: Propranolol 10 MG Tablet PO SCH (08:13)
[2018-07-09] MEDS: Pantoprazole Sodium 20 MG DR Tablet PO SCH (08:14)
[2018-07-09] MEDS: Lipase/Protease/Amylase 24/76/120 DR Capsule PO SCH ×3 (08:14→18:10)
--- NOTE | 2018-07-09 08:18 | ECG ---
Date Performed: 07/09/2018 Time Performed: 00:50:34 PTAGE: 67 years EKG: Sinus rhythm Anterior T wave changes are nonspecific Borderline ECG Compared to prior electrocardiogram, Nonspeci fic T wave changes are now present . PREVIOUS TRACING : 02/15/2018 02.26 DOCTOR: Steven Castillo Interpretating Date/Time 07/09/2018 08:16:45
[2018-07-09 09:10] LABS: Bacteria,Urine Rare /hpf; Bilirubin,Urine Negative (Negative); Clarity,Urine Cloudy (Clear); Color,Urine Amber (Yellw/Straw); Glucose,Urine (UA) Negative (Negative); Hyaline Casts,Urine 95 /lpf (0-3); Leukocyte Esterase,Urine Negative (Negative); Mucus,Urine Many /lpf (Occasional); Nitrite,Urine Negative (Negative); Specific Gravity,Urine 1.023 (1.002-1.035); Squamous Epithelial Cell,Urine 9 /hpf (0-5); Urobilinogen,Urine 4 or Greater mg/dL (Less than 2)
[2018-07-09] MEDS ORDERED: Lidocaine PF 1% Inj 10 ML Amp ONE (09:18)
--- NOTE | 2018-07-09 09:36 | P.PNOP ---
Subjective Interval history: Patient was at home when she fell putting on her jeans. She hit her head and landed on her left hip. She did not lose consciousness. She was unable to ambulate and had significant pain to her left hip Physical Exam Vital signs: Vital Signs 07/08/18 14:59 07/08/18 15:05 07/08/18 16:32 Temperature 98.2 F 98.2 F Pulse Rate 77 74 75 Respiratory Rate 16 16 20 Blood Pressure 125/75 121/73 121/71 Pulse Oximetry 99 99 100 07/08/18 17:56 07/08/18 20:00 07/09/18 00:00 Temperature 98 F 98 F Pulse Rate 78 80 71 Respiratory Rate 20 18 15 Blood Pressure 127/62 110/68 115/54 L Pulse Oximetry 96 96 07/09/18 04:00 07/09/18 08:00 07/09/18 08:51 Temperature 97.4 F L 97.5 F L 98.0 F Pulse Rate 85 83 70 Respiratory Rate 15 16 20 Blood Pressure 109/61 110/73 114/67 Pulse Oximetry 93 L 97 100 Intake & Output 07/08/18 07/09/18 07/09/18 18:59 06:59 18:59 Intake Total 0 / 0 Balance 0 / 0 Weight 77.111 kg 86.5 kg Intake: Oral 0 / 0 Other: Date of Last Bowel Movement 07/07/18 07/08/18 Weight On Admission 77 kg Narrative: Bilateral upper extremities: Full range of motion neurovascularly intact Right lower extremity: Full range of motion and neurovascularly intact Left lower extremity: Pain to palpation of hip with bruising over her lateral hip. She has no pain with knee or ankle range of motion. Distally intact sensation with good capillary refills. Patient is in [place]'s traction. - Constitutional no acute distress - Urinary Catheter Management Indwelling Urethral Catheter Cath placed during this visit: yes Reason for continuing: Acute urinary retention Insertion date: 07/09/18 Insertion time: 08:00 Results - Labs CBC & Chem 7: 07/09/18 05:20 07/09/18 05:20 Laboratory Results - last 24 hr 07/08/18 07/08/18 07/08/18 14:50 14:50 14:50 WBC 5.4 RBC 3.99 L Hgb 13.2 Hct 37.7 MCV 94.4 MCH 33.1 MCHC 35.1 RDW 17.5 H Plt Count 113 L MPV 9.0 Neut % (Auto) 63.5 Lymph % (Auto) 18.5 [place] % (Auto) 14.8 H Eos % (Auto) 1.4 Baso % (Auto) 1.8 Neut # (Auto) 3.4 Lymph # (Auto) 1.0 [place] # (Auto) 0.8 Eos # (Auto) 0.1 Baso # (Auto) 0.1 WBC Differential . Differential Comment Auto diff final PT 13.6 H INR 1.3 APTT 25.8 Sodium 133 L Potassium 4.5 Chloride 101 Carbon Dioxide 22.0 Anion Gap 10 BUN 18 Creatinine 1.00 Estimated GFR 55 L Random Glucose 80 Calcium 9.1 Total Bilirubin 4.3 H AST 66 H ALT 29 Alkaline Phosphatase 120 H Ammonia Total Protein 7.0 Albumin 2.3 L Urine Color Urine Clarity Urine pH Ur Specific [place] Urine Protein Urine Glucose (UA) Urine Ketones Urine Occult Blood Urine Nitrate Urine Bilirubin Urine Urobilinogen Ur Leukocyte Esterase Urine RBC Urine WBC Ur Squamous Epith Cells Urine Bacteria Hyaline Casts Urine Mucus Micro UA Comment Urine Culture Comments Blood Type Blood Type Recheck Antibody Screen 07/08/18 07/09/18 07/09/18 15:55 05:20 05:20 WBC 8.4 D RBC 3.52 L Hgb 11.6 Hct 33.6 L MCV 95.4 MCH 32.9 MCHC 34.5 RDW 17.8 H Plt Count 115 L MPV 8.7 Neut % (Auto) 69.1 Lymph % (Auto) 14.3 [place] % (Auto) 15.5 H Eos % (Auto) 0.5 Baso % (Auto) 0.6 Neut # (Auto) 5.8 Lymph # (Auto) 1.2 [place] # (Auto) 1.3 H Eos # (Auto) 0.0 Baso # (Auto) 0.1 WBC Differential . Differential Comment Auto diff final PT 14.3 H INR 1.4 APTT 26.6 Sodium Potassium Chloride Carbon Dioxide Anion Gap BUN Creatinine Estimated GFR Random Glucose Calcium Total Bilirubin AST ALT Alkaline Phosphatase Ammonia 71 H Total Protein Albumin Urine Color Urine Clarity Urine pH Ur Specific [place] Urine Protein Urine Glucose (UA) Urine Ketones Urine Occult Blood Urine Nitrate Urine Bilirubin Urine Urobilinogen Ur Leukocyte Esterase Urine RBC Urine WBC Ur Squamous Epith Cells Urine Bacteria Hyaline Casts Urine Mucus Micro UA Comment Urine Culture Comments Blood Type Blood Type Recheck Antibody Screen 07/09/18 07/09/18 07/09/18 05:20 05:20 05:20 WBC RBC Hgb Hct MCV MCH MCHC RDW Plt Count MPV Neut % (Auto) Lymph % (Auto) [place] % (Auto) Eos % (Auto) Baso % (Auto) Neut # (Auto) Lymph # (Auto) [place] # (Auto) Eos # (Auto) Baso # (Auto) WBC Differential Differential Comment PT INR APTT Sodium 134 L Potassium 4.3 Chloride 100 Carbon Dioxide 22.7 Anion Gap 11 BUN 23 H Creatinine 1.00 Estimated GFR 55 L Random Glucose 122 H Calcium 8.8 Total Bilirubin AST ALT Alkaline Phosphatase Ammonia 79 H Total Protein Albumin Urine Color Urine Clarity Urine pH Ur Specific [place] Urine Protein Urine Glucose (UA) Urine Ketones Urine Occult Blood Urine Nitrate Urine Bilirubin Urine Urobilinogen Ur Leukocyte Esterase Urine RBC Urine WBC Ur Squamous Epith Cells Urine Bacteria Hyaline Casts Urine Mucus Micro UA Comment Urine Culture Comments Blood Type B Positive Blood Type Recheck Required Antibody Screen Negative 07/09/18 08:01 WBC RBC Hgb Hct MCV MCH MCHC RDW Plt Count MPV Neut % (Auto) Lymph % (Auto) [place] % (Auto) Eos % (Auto) Baso % (Auto) Neut # (Auto) Lymph # (Auto) [place] # (Auto) Eos # (Auto) Baso # (Auto) WBC Differential Differential Comment PT INR APTT Sodium Potassium Chloride Carbon Dioxide Anion Gap BUN Creatinine Estimated GFR Random Glucose Calcium Total Bilirubin AST ALT Alkaline Phosphatase Ammonia Total Protein Albumin Urine Color [place] Urine Clarity Cloudy H Urine pH 5.0 Ur Specific [place] 1.023 Urine Protein 30 H Urine Glucose (UA) Negative Urine Ketones Negative Urine Occult Blood Small H Urine Nitrate Negative Urine Bilirubin Negative Urine Urobilinogen 4 or greater Ur Leukocyte Esterase Negative Urine RBC Less than 1 Urine WBC 3 Ur Squamous Epith Cells 9 Urine Bacteria Rare H Hyaline Casts 95 Urine Mucus Many H Micro UA Comment Cath-culture ind Urine Culture Comments Cath-cult indicated Blood Type Blood Type Recheck Antibody Screen - Imaging Impressions Chest X-Ray 07/08/18 14:50 CONCLUSION: Minimal bibasilar parental changes, nonspecific. Femur X-Ray 07/08/18 14:50 CONCLUSION: Trochanteric fracture left hip Hip X-Ray 07/08/18 14:50 CONCLUSION: Intertrochanteric fracture left hip with moderate angulation. Assessment and Plan - Problem List (1) Liver disease due to alcohol Code(s): K70.9 - Alcoholic liver disease, unspecified Status: Acute (2) Intertrochanteric fracture of left hip Code(s): S72.142A - Displaced intertrochanteric fracture of left femur, initial encounter for closed fracture Status: Acute - Assessment and Plan Yane has a displaced left hip intertrochanteric fracture. Treatment options were discussed. Patient will need surgery in order to heal the fracture and regain ambulatory status. At this point I would recommend left hip reduction with intramedullary nail fixation. Risks of surgery were discussed including bleeding, infection, nonunion, malunion, painful hardware, as well as medical complications including blood clots, stroke, heart attack, and . All questions were answered. I will plan on surgery later today if she is medically cleared. Patient also has severe ascites. She is scheduled for paracentesis today. She will need continue medical management of her liver disease. Postoperatively patient will need to be placed on appropriate DVT prophylaxis. She will be started on calcium and vitamin D supplementation to assist with her osteoporosis Physical therapy will be consulted for gait training. A mid-level provider in my office (nurse practitioner or physician freezer assistant) may see this patient on follow-up visits and continue to implement the objectives of this plan including: Starting or adjusting medications, injections , cast application, orthotics, brace application, physical therapy, radiological studies (including x-ray, MRI, CT, ultrasound, bone scan), vascular studies, neurologic studies, specialist consultation, and proceeding with surgical management, as appropriate.
[2018-07-09] MEDS ORDERED: Albumin Human 25% Inj 150 ML IV.SIG ONE (09:47)
--- NOTE | 2018-07-09 11:26 | US ---
EXAM DATE: 07/09/2018 10:26 AM EDT AGE/SEX: 67 years / Female INDICATIONS: Ascites. CLINICAL DATA: This is the patient's sequela encounter. Patient reports that signs and symptoms have been present for 1 month and indicates a pain score of 10/10. MEDICAL/SURGICAL HISTORY: Cirrhosis. Anemia. Exocrine pancreatic insufficiency. Hysterectomy. Paracentesis. COMPAR[place]: [facility] [place] W/IMAGE, 05/30/2018. . FLUID: Total volume of 10,900 cc of clear, yellow fluid was removed. Fluid was discarded. Paracentesis was t herapeutic only. . . TECHNIQUE: Ultrasound guidance for abdominal paracentesis. Paracentesis. The risks, benefits, and alternatives to ultrasound guided paracentesis were explained to the patient in detail including the risk of bleeding and infection. Written and verbal informed consent was obt ained. With the patient on the ultrasound table, ultrasound imaging was used to select the most appropriate approach for paracentesis. Overlying skin was prepped and draped in the usual sterile fashion and wi th a local anesthetic, a dermatotomy was made with an 11 blade scalpel. A 6 Irish [id number] ca theter was introduced into the peritoneal cavity and fluid was collected. Post procedure scanning reveals no hematoma or other complication. The patient tolerated the procedu re well and left the ultrasound suite in stable condition. CONCLUSION: Uncomplicated ultrasound-guided abdominal paracentesis as above. Electronically signed by: Jasvir Becerra MD 07/09/2018 11:25 AM EDT
--- NOTE | 2018-07-09 11:45 | P.PNIM ---
Subjective Interval history: Doing okay had completed paracentesis this morning. Anxious about the surgery. Physical Exam Vital signs: Vital Signs 07/08/18 14:59 07/08/18 15:05 07/08/18 16:32 Temperature 98.2 F 98.2 F Pulse Rate 77 74 75 Respiratory Rate 16 16 20 Blood Pressure 125/75 121/73 121/71 Pulse Oximetry 99 99 100 07/08/18 17:56 07/08/18 20:00 07/09/18 00:00 Temperature 98 F 98 F Pulse Rate 78 80 71 Respiratory Rate 20 18 15 Blood Pressure 127/62 110/68 115/54 L Pulse Oximetry 96 96 07/09/18 04:00 07/09/18 08:00 07/09/18 08:51 Temperature 97.4 F L 97.5 F L 98.0 F Pulse Rate 85 83 70 Respiratory Rate 15 16 20 Blood Pressure 109/61 110/73 114/67 Pulse Oximetry 93 L 97 100 07/09/18 10:16 07/09/18 10:45 Temperature 98.5 F 97.6 F Pulse Rate 68 78 Respiratory Rate 18 16 Blood Pressure 95/47 L 100/54 L Pulse Oximetry 96 97 Intake & Output 07/08/18 07/09/18 07/09/18 18:59 06:59 18:59 Intake Total 0 / 0 Balance 0 / 0 Weight 77.111 kg 86.5 kg Intake: Oral 0 / 0 Other: Date of Last Bowel Movement 07/07/18 07/08/18 Weight On Admission 77 kg Narrative: GENERAL: This is a well-nourished, well-developed patient, in no apparent distress. CARDIOVASCULAR: Regular rate and rhythm RESPIRATORY: Clear to auscultation. Breath sounds equal bilaterally. No wheezes , rales, or rhonchi. GASTROINTESTINAL: Abdomen soft, non-tender, nondistended. Normal active bowel sounds MUSCULOSKELETAL: Left lower extremity in Milton's traction NEURO: Alert & Oriented x4 to person, place, time, situation. - Urinary Catheter Management Indwelling Urethral Catheter Cath placed during this visit: yes Reason for continuing: Acute urinary retention Insertion date: 07/09/18 Insertion time: 08:00 Results - Labs CBC & Chem 7: 07/09/18 05:20 07/09/18 05:20 Laboratory Results - last 24 hr 08/07/08/18 07/08/18 14:50 14:50 14:50 WBC 5.4 RBC 3.99 L Hgb 13.2 Hct 37.7 MCV 94.4 MCH 33.1 MCHC 35.1 RDW 17.5 H Plt Count 113 L MPV 9.0 Neut % (Auto) 63.5 Lymph % (Auto) 18.5 [place] % (Auto) 14.8 H Eos % (Auto) 1.4 Baso % (Auto) 1.8 Neut # (Auto) 3.4 Lymph # (Auto) 1.0 [place] # (Auto) 0.8 Eos # (Auto) 0.1 Baso # (Auto) 0.1 WBC Differential . Differential Comment Auto diff final PT 13.6 H INR 1.3 APTT 25.8 Sodium 133 L Potassium 4.5 Chloride 101 Carbon Dioxide 22.0 Anion Gap 10 BUN 18 Creatinine 1.00 Estimated GFR 55 L Random Glucose 80 Calcium 9.1 Total Bilirubin 4.3 H AST 66 H ALT 29 Alkaline Phosphatase 120 H Ammonia Total Protein 7.0 Albumin 2.3 L Urine Color Urine Clarity Urine pH Ur Specific Ora Urine Protein Urine Glucose (UA) Urine Ketones Urine Occult Blood Urine Nitrate Urine Bilirubin Urine Urobilinogen Ur Leukocyte Esterase Urine RBC Urine WBC Ur Squamous Epith Cells Urine Bacteria Hyaline Casts Urine Mucus Micro UA Comment Urine Culture Comments Blood Type Blood Type Recheck Antibody Screen 07/08/18 07/09/18 07/09/18 15:55 05:20 05:20 WBC 8.4 D RBC 3.52 L Hgb 11.6 Hct 33.6 L MCV 95.4 MCH 32.9 MCHC 34.5 RDW 17.8 H Plt Count 115 L MPV 8.7 Neut % (Auto) 69.1 Lymph % (Auto) 14.3 [place] % (Auto) 15.5 H Eos % (Auto) 0.5 Baso % (Auto) 0.6 Neut # (Auto) 5.8 Lymph # (Auto) 1.2 [place] # (Auto) 1.3 H Eos # (Auto) 0.0 Baso # (Auto) 0.1 WBC Differential . Differential Comment Auto diff final PT 14.3 H INR 1.4 APTT 26.6 Sodium Potassium Chloride Carbon Dioxide Anion Gap BUN Creatinine Estimated GFR Random Glucose Calcium Total Bilirubin AST ALT Alkaline Phosphatase Ammonia 71 H Total Protein Albumin Urine Color Urine Clarity Urine pH Ur Specific Ora Urine Protein Urine Glucose (UA) Urine Ketones Urine Occult Blood Urine Nitrate Urine Bilirubin Urine Urobilinogen Ur Leukocyte Esterase Urine RBC Urine WBC Ur Squamous Epith Cells Urine Bacteria Hyaline Casts Urine Mucus Micro UA Comment Urine Culture Comments Blood Type Blood Type Recheck Antibody Screen 07/09/18 07/09/18 07/09/18 05:20 05:20 05:20 WBC RBC Hgb Hct MCV MCH MCHC RDW Plt Count MPV Neut % (Auto) Lymph % (Auto) [place] % (Auto) Eos % (Auto) Baso % (Auto) Neut # (Auto) Lymph # (Auto) [place] # (Auto) Eos # (Auto) Baso # (Auto) WBC Differential Differential Comment PT INR APTT Sodium 134 L Potassium 4.3 Chloride 100 Carbon Dioxide 22.7 Anion Gap 11 BUN 23 H Creatinine 1.00 Estimated GFR 55 L Random Glucose 122 H Calcium 8.8 Total Bilirubin AST ALT Alkaline Phosphatase Ammonia 79 H Total Protein Albumin Urine Color Urine Clarity Urine pH Ur Specific Ora Urine Protein Urine Glucose (UA) Urine Ketones Urine Occult Blood Urine Nitrate Urine Bilirubin Urine Urobilinogen Ur Leukocyte Esterase Urine RBC Urine WBC Ur Squamous Epith Cells Urine Bacteria Hyaline Casts Urine Mucus Micro UA Comment Urine Culture Comments Blood Type B Positive Blood Type Recheck Required Antibody Screen Negative 07/09/18 08:01 WBC RBC Hgb Hct MCV MCH MCHC RDW Plt Count MPV Neut % (Auto) Lymph % (Auto) [place] % (Auto) Eos % (Auto) Baso % (Auto) Neut # (Auto) Lymph # (Auto) [place] # (Auto) Eos # (Auto) Baso # (Auto) WBC Differential Differential Comment PT INR APTT Sodium Potassium Chloride Carbon Dioxide Anion Gap BUN Creatinine Estimated GFR Random Glucose Calcium Total Bilirubin AST ALT Alkaline Phosphatase Ammonia Total Protein Albumin Urine Color [place] Urine Clarity Cloudy H Urine pH 5.0 Ur Specific [place] 1.023 Urine Protein 30 H Urine Glucose (UA) Negative Urine Ketones Negative Urine Occult Blood Small H Urine Nitrate Negative Urine Bilirubin Negative Urine Urobilinogen 4 or greater Ur Leukocyte Esterase Negative Urine RBC Less than 1 Urine WBC 3 Ur Squamous Epith Cells 9 Urine Bacteria Rare H Hyaline Casts 95 Urine Mucus Many H Micro UA Comment Cath-culture ind Urine Culture Comments Cath-cult indicated Blood Type Blood Type Recheck Antibody Screen - Imaging Impressions Chest X-Ray 07/08/18 14:50 CONCLUSION: Minimal bibasilar parental changes, nonspecific. Femur X-Ray 07/08/18 14:50 CONCLUSION: Trochanteric fracture left hip Hip X-Ray 07/08/18 14:50 CONCLUSION: Intertrochanteric fracture left hip with moderate angulation. Paracentesis Ultrasound 07/09/18 00:00 CONCLUSION: Uncomplicated ultrasound-guided abdominal paracentesis as above. Assessment and Plan - Assessment (1) Intertrochanteric fracture of left hip Code(s): S72.142A - Displaced intertrochanteric fracture of left femur, initial encounter for closed fracture Status: Acute (2) Liver disease due to alcohol Code(s): K70.9 - Alcoholic liver disease, unspecified Status: Acute (3) Ascites Code(s): R18.8 - Other ascites Status: Acute - Plan 67-year-old female with a past medical history significant for liver disease secondary to alcohol abuse, anxiety, and osteopenia who presents to the emergency department after mechanical fall resulting in left trochanteric fracture. Mechanical fall Left hip fracture -Femur x-ray reviewed, trochanteric fracture left hip. -Hip x-ray reviewed, intratrochanteric fracture left hip with moderate angulation. -Appreciate orthopedic consultation for scheduled surgical intervention with left hip reduction with IM nailing -Pain control with IV morphine -Check vitamin D level Chronic alcoholic liver disease Cirrhosis Ascites -Status post paracentesis today -Ammonia level 71, recheck levels 79 and stable -Continue Creon, Lasix, spironolactone, propranolol, and Protonix -Avoid hepatotoxins DVT prophylaxis-JOEL Oquendo
[2018-07-09] MEDS ORDERED: Succinylcholine Inj 100 MG/5 ML Syringe IV.PUSH ONE (12:00)
[2018-07-09] MEDS ORDERED: Lidocaine PF 1% Inj 5 ML Syringe INFILTRATN ONE (12:00)
[2018-07-09] MEDS ORDERED: Sodium Chlor 0.9% Inj 500 ML IV.SIG ONE (12:00)
[2018-07-09] MEDS ORDERED: Phenylephrine/NS 1000 MCG/10ML Syringe IV.PUSH ONE (12:00)
[2018-07-09] MEDS ORDERED: Bupivacaine/Epinephrine Inj 0.25% 50 ML Vial ONE (15:59)
[2018-07-09] MEDS ORDERED: Post-op Orders (for Pharmacy) OTHER STA (16:00)
--- NOTE | 2018-07-09 16:03 | P.OP ---
- Preoperative Diagnosis (1) Intertrochanteric fracture of left hip Date of procedure: 07/09/18 Procedure: Left hip reduction and intramedullary fixation Anesthesia: GETA Surgeon: Josemanuel Sher MD Engineering Program Analyst: Castro Cheung PA-C The surgical procedure was assisted by my physician delinquent tax collector assistant. My P.A. presence was necessary throughout this case for the manipulation and positioning of the surgical extremity. My P.A. was assisting me throughout the duration of this procedure. The skill set of a physician delinquent tax collector assistant was medically necessary to complete this procedure. During the surgical case the surgical scrub technologist was working at the back table and the physician delinquent tax collector assistant was directly assisting me. Operation and Findings: Implants used: Biomet 13 mm short troch nail Plan of activity: Weight-bear as tolerated Patient was seen and evaluated preoperatively. The patient has significant hip pain from intertrochanteric hip fracture. The risk and benefits of surgery were discussed in depth with the patient to include bleeding infection nonunion malunion and need for hip replacement painful hardware as well as medical competitions including but not stroke heart attack and . Informed consent was obtained. Operative site was marked. Patient was brought to the operating room and placed on fracture table. IV sedation was administered by anesthesiologist. Timeout procedure was performed. Hip and leg were prepped with alcohol followed by DuraPrep and draped in the usual sterile fashion. IV antibiotics were given prior to incision. Procedure began with reduction of fracture. Traction was applied. The leg was manipulated to achieve reduction. Excellent reduction was achieved. Fluoroscopy was used to confirm reduction. A three inch incision was made proximal to the trochanter. Subcutaneous tissue was dissected bluntly. Guidepin was placed at the tip of the trochanter and advanced into the femoral canal. Fluoroscopy confirmed appropriate guidepin placement. A opening reamer was placed over the guidepin. The nail was attached to the insertion handle. Nail was now placed through the tip of the trochanter into the femoral canal. Fluoroscopy confirmed appropriate nail placement. A second incision was made over the lateral thigh. Cannulas were placed through the insertion handle down to the femur. Guidepin was now placed through the femoral nail into the center of the femoral head. Fluoroscopy confirmed appropriate guidepin placement. Screw length was measured. Cannulated drill was placed over the guidepin. Appropriate length lag screw was now placed. Traction was released and compression was applied. The set screw was now tightened in dynamic mode. Using the insertion handle as a guide a distal interlocking screw was drilled and placed. Final fluoroscopy revealed well aligned fracture with well-placed hardware. Incision was closed with 3-0 Vicryl and myron. Sterile dressings were applied. Patient was awakened and transferred to recovery room.
--- NOTE | 2018-07-09 16:27 | XR ---
EXAM DATE: 07/09/2018 4:23 PM EDT AGE/SEX: 67 years / Female INDICATIONS: Open reduction internal fixation of the left hip. CLINICAL DATA: This is the patient's subsequent encounter. Patient reports that signs and symptoms h ave been present for 2 days and indicates a pain score of Nonresponsive. MEDICAL/SURGICAL HISTORY: . Cirrhosis. None. COMPARISON: [facility] – [place], HIP LEFT 2V, 07/08/2018. . FINDINGS: Intraoperative images show the intertrochanteric fracture of the left hip repaired with a medullary r od and 2 compression screws. Fracture fragments are in adequate anatomic alignment with approximately one cortical thickness lateral displacement of the distal fragment. CONCLUSION: Open reduction and internal fixation of the left intertrochanteric fracture as above. Electronically signed by: Tiago Ricardo MD 07/09/2018 4:25 PM EDT
[2018-07-09] MEDS ORDERED: *morphine SULFATE 10 MG/ML PERIprocedure ONLY ONE (16:49)
[2018-07-10] MEDS: Morphine Inj 4 MG/ML Vial IV.PUSH PRN ×4 (04:32→21:11)
[2018-07-10] MEDS: Furosemide 40 MG Tablet PO SCH (08:01)
[2018-07-10] MEDS: Pantoprazole Sodium 20 MG DR Tablet PO SCH (08:01)
[2018-07-10] MEDS: Propranolol 10 MG Tablet PO SCH (08:01)
[2018-07-10] MEDS: Spironolactone 50 MG Tablet PO SCH ×2 (08:01→21:11)
[2018-07-10] MEDS: Citalopram 20 MG Tablet PO SCH (08:01)
[2018-07-10] MEDS: Lipase/Protease/Amylase 24/76/120 DR Capsule PO SCH ×3 (08:03→17:07)
--- NOTE | 2018-07-10 10:54 | P.PNOP ---
Subjective Interval history: POD 1 s/p IMN left hip patient reports numbness and increased pain in left lower leg. states pain in hip and also pain in right leg patient's at bedside and reports that she seems confused. went for paracentesis yesterday due to liver issues. reports inability to dorsiflex ankle on left side Physical Exam Vital signs: Vital Signs 07/09/18 12:00 07/09/18 16:28 07/09/18 16:45 Temperature 97.7 F 97.5 F L Pulse Rate 83 86 74 Respiratory Rate 16 16 16 Blood Pressure 108/56 L 141/65 H 96/50 L Pulse Oximetry 100 98 98 07/09/18 17:00 07/09/18 17:15 07/09/18 17:30 Temperature Pulse Rate 72 67 67 Respiratory Rate 16 16 16 Blood Pressure 89/50 L 95/60 L 95/60 L Pulse Oximetry 98 98 98 07/09/18 17:45 07/09/18 20:00 07/10/18 00:00 Temperature 98.3 F 98.3 F 98.1 F Pulse Rate 87 93 H 90 Respiratory Rate 18 18 Blood Pressure 113/52 L 109/51 L 104/55 L Pulse Oximetry 100 94 L 96 07/10/18 04:00 07/10/18 08:00 07/10/18 08:07 Temperature 98.8 F 98.7 F Pulse Rate 87 87 Respiratory Rate 18 18 18 Blood Pressure 106/53 L 108/57 L Pulse Oximetry 100 97 Intake & Output 07/09/18 07/10/18 07/10/18 18:59 06:59 18:59 Intake Total 530 / 530 540 / 540 100 / 100 Output Total 640 / 640 375 / 375 Balance -110 / -110 165 / 165 100 / 100 Weight 86.5 kg Intake: IV 500 / 500 100 / 100 100 / 100 Flexbumin 25% Inj 150 ML @ 60 150 / 150 mls/hr IV.SIG ONCE ONE Rx#: [id number] LR 1000 mL Inj 1,000 ML @ 30 350 / 350 mls/hr IV.SIG .Q24H LUCIE Rx#: [id number] Ancef Inj 1,000 MG In NS Inj 100 / 100 100 / 100 100 ML @ 200 mls/hr IV.SIG Q8H LUCIE Rx#:[id number] Oral 30 / 30 440 / 440 Output: Estimated Blood Loss 50 / 50 Urine Amount (Catheter) 590 / 590 375 / 375 Indwelling Urethral Catheter 590 / 590 375 / 375 Other: Date of Last Bowel Movement 07/08/18 07/08/18 07/07/18 Narrative: LLE: dressings clean and dry. intact. decreased sensation distally but responds to sharp sensation. inability to dorsiflex. noticeable plantar contracture of bilateral ankles. pain in calves with dorsiflexion of bilateral ankles - Urinary Catheter Management Indwelling Urethral Catheter Cath placed during this visit: yes, but has since been removed by the nurse Reason for continuing: Decision to DC catheter Insertion date: 07/09/18 Insertion time: 08:00 Removal date: 07/10/18 Removal time: 06:00 Results - Labs CBC & Chem 7: 07/09/18 05:20 07/09/18 05:20 - Imaging Impressions Hip X-Ray 07/09/18 00:00 CONCLUSION: Open reduction and internal fixation of the left intertrochanteric fracture as above. Paracentesis Ultrasound 07/09/18 00:00 CONCLUSION: Uncomplicated ultrasound-guided abdominal paracentesis as above. Assessment and Plan - Problem List (1) Liver disease due to alcohol Code(s): K70.9 - Alcoholic liver disease, unspecified Status: Acute (2) Intertrochanteric fracture of left hip Code(s): S72.142A - Displaced intertrochanteric fracture of left femur, initial encounter for closed fracture Status: Acute - Assessment and Plan 1) Left Intertroch Hip Fx s/p IMN - POD 1 -WBAT -daily dressing changes -CM for DC planning -podus boots bilaterally -work on stretching ankles -medical mgmt of liver issues -will order ultrasounds bilaterally of lower legs due to increased pain and deysi's sign A mid-level provider in my office (nurse practitioner or physician sound assistant) may see this patient on follow-up visits and continue to implement the objectives of this plan including: Starting or adjusting medications, injections , cast application, orthotics, brace application, physical therapy, radiological studies (including x-ray, MRI, CT, ultrasound, bone scan), vascular studies, neurologic studies, specialist consultation, and proceeding with surgical management, as appropriate.
--- NOTE | 2018-07-10 11:00 | P.PNIM ---
Subjective Interval history: Reports pain with movement. Physical Exam Vital signs: Vital Signs 07/09/18 12:00 07/09/18 16:28 07/09/18 16:45 Temperature 97.7 F 97.5 F L Pulse Rate 83 86 74 Respiratory Rate 16 16 16 Blood Pressure 108/56 L 141/65 H 96/50 L Pulse Oximetry 100 98 98 07/09/18 17:00 07/09/18 17:15 07/09/18 17:30 Temperature Pulse Rate 72 67 67 Respiratory Rate 16 16 16 Blood Pressure 89/50 L 95/60 L 95/60 L Pulse Oximetry 98 98 98 07/09/18 17:45 07/09/18 20:00 07/10/18 00:00 Temperature 98.3 F 98.3 F 98.1 F Pulse Rate 87 93 H 90 Respiratory Rate 18 18 Blood Pressure 113/52 L 109/51 L 104/55 L Pulse Oximetry 100 94 L 96 07/10/18 04:00 07/10/18 08:00 07/10/18 08:07 Temperature 98.8 F 98.7 F Pulse Rate 87 87 Respiratory Rate 18 18 18 Blood Pressure 106/53 L 108/57 L Pulse Oximetry 100 97 Intake & Output 07/09/18 07/10/18 07/10/18 18:59 06:59 18:59 Intake Total 530 / 530 540 / 540 100 / 100 Output Total 640 / 640 375 / 375 Balance -110 / -110 165 / 165 100 / 100 Weight 86.5 kg Intake: IV 500 / 500 100 / 100 100 / 100 Flexbumin 25% Inj 150 ML @ 60 150 / 150 mls/hr IV.SIG ONCE ONE Rx#: [id number] LR 1000 mL Inj 1,000 ML @ 30 350 / 350 mls/hr IV.SIG .Q24H LUCIE Rx#: [id number] Ancef Inj 1,000 MG In NS Inj 100 / 100 100 / 100 100 ML @ 200 mls/hr IV.SIG Q8H LUCIE Rx#:[id number] Oral 30 / 30 440 / 440 Output: Estimated Blood Loss 50 / 50 Urine Amount (Catheter) 590 / 590 375 / 375 Indwelling Urethral Catheter 590 / 590 375 / 375 Other: Date of Last Bowel Movement 07/08/18 07/08/18 07/07/18 Narrative: GENERAL: This is a well-nourished, well-developed patient, in no apparent distress. CARDIOVASCULAR: Regular rate and rhythm RESPIRATORY: Clear to auscultation. Breath sounds equal bilaterally. No wheezes , rales, or rhonchi. GASTROINTESTINAL: Abdomen soft, non-tender, nondistended. Normal active bowel sounds MUSCULOSKELETAL: Left hip bandage clean dry intact NEURO: Alert to person and place but seems confused to situation - Urinary Catheter Management Indwelling Urethral Catheter Cath placed during this visit: yes, but has since been removed by the nurse Reason for continuing: Decision to DC catheter Insertion date: 07/09/18 Insertion time: 08:00 Removal date: 07/10/18 Removal time: 06:00 Results - Labs CBC & Chem 7: 07/09/18 05:20 07/09/18 05:20 - Imaging Impressions Hip X-Ray 07/09/18 00:00 CONCLUSION: Open reduction and internal fixation of the left intertrochanteric fracture as above. Paracentesis Ultrasound 07/09/18 00:00 CONCLUSION: Uncomplicated ultrasound-guided abdominal paracentesis as above. - Procedures 814 paracentesis 814 left hip reduction with IM nailing with Dr. Diaz Assessment and Plan - Assessment (1) Intertrochanteric fracture of left hip Code(s): S72.142A - Displaced intertrochanteric fracture of left femur, initial encounter for closed fracture Status: Acute (2) Liver disease due to alcohol Code(s): K70.9 - Alcoholic liver disease, unspecified Status: Acute (3) Ascites Code(s): R18.8 - Other ascites Status: Acute - Plan 67-year-old female with a past medical history significant for liver disease secondary to alcohol abuse, anxiety, and osteopenia who presents to the emergency department after mechanical fall resulting in left trochanteric fracture. Mechanical fall Left hip fracture Status post operative day #1 left hip reduction with IM nailing -Appreciate orthopedic recommendations for postoperative care, pain control, physical therapy weight-bear as tolerated. Chronic alcoholic liver disease Cirrhosis Ascites -Status post paracentesis 07/09 -Ammonia level 71, recheck levels 79 and stable, patient does seem more confused today and will initiate scheduled lactulose -Continue Creon, Lasix, spironolactone, propranolol, and Protonix -Avoid hepatotoxins DVT prophylaxis-Lovenox Discharge Planning: Patient will need rehab placement
--- NOTE | 2018-07-10 12:16 | US ---
EXAM DATE: 07/10/2018 12:13 PM EDT AGE/SEX: 67 years / Female INDICATIONS: Bilateral leg pain and swelling. CLINICAL DATA: This is the patient's initial encounter. Patient reports that signs and symptoms have been present for 1 day and indicates a pain score of 9/10. MEDICAL/SURGICAL HISTORY: Cirrhosis. Anxiety. Osteopenia. Hysterectomy. Paracentesis. COMPARISON: [facility], MR KNEE W/O CONTRAST, RIGHT, 11/07/2016. . TECHNIQUE: Venous ultrasound of both lower extremities was performed from the inguinal ligament to t he proximal calf. Real-time, color Doppler and spectral tracing, compression and augmentation techni ques were used. FINDINGS: Right Leg: Normal compression of the deep venous system from the inguinal region to the proximal sally f. No echogenic clot is seen. Normal response of the venous system to augmentation and respiration. Left Leg: Normal compression of the deep venous system from the inguinal region to the proximal calf . No echogenic clot is seen. Normal response of the venous system to augmentation and respiration. Other: None. CONCLUSION: 1. No sonographic evidence for lower extremity DVT. Electronically signed by: Gavin Smith MD 07/10/2018 12:15 PM EDT
[2018-07-10] MEDS: Enoxaparin Inj 30 MG/0.3 ML Syringe SQ SCH (16:30)
[2018-07-11] MEDS: Morphine Inj 4 MG/ML Vial IV.PUSH PRN ×4 (04:37→17:47)
--- NOTE | 2018-07-11 06:51 | P.PNOP ---
Subjective Interval history: POD 2 s/p IMN left hip no changes. reports pain. bilateral doppler was negative yesterday Physical Exam Vital signs: Vital Signs 07/10/18 08:00 07/10/18 08:07 07/10/18 12:00 Temperature 98.7 F 98.4 F Pulse Rate 87 83 Respiratory Rate 18 18 18 Blood Pressure 108/57 L 95/52 L Pulse Oximetry 97 97 07/10/18 12:37 07/10/18 13:12 07/10/18 16:00 Temperature 98.7 F Pulse Rate 91 H Respiratory Rate 16 16 20 Blood Pressure 98/51 L Pulse Oximetry 94 L 07/10/18 20:00 07/11/18 00:00 07/11/18 02:00 Temperature 98.6 F 98.8 F Pulse Rate 93 H 95 H Respiratory Rate 18 18 17 Blood Pressure 108/55 L 101/59 L Pulse Oximetry 97 96 07/11/18 04:00 07/11/18 04:52 Temperature 98.3 F Pulse Rate 93 H Respiratory Rate 18 17 Blood Pressure 115/59 L Pulse Oximetry 95 Intake & Output 07/10/18 07/10/18 07/11/18 06:59 18:59 06:59 Intake Total 540 / 540 440 / 440 320 / 320 Output Total 375 / 375 Balance 165 / 165 440 / 440 320 / 320 Weight 86.5 kg 86.5 kg Intake: IV 100 / 100 200 / 200 Ancef Inj 1,000 MG In NS Inj 100 / 100 200 / 200 100 ML @ 200 mls/hr IV.SIG Q8H LUCIE Rx#:[id number] Oral 440 / 440 240 / 240 320 / 320 Output: Urine Amount (Catheter) 375 / 375 Indwelling Urethral Catheter 375 / 375 Other: # Voids 3 4 Date of Last Bowel Movement 07/08/18 07/07/18 07/10/18 # Bowel Movements 2 Narrative: LLE: dressings clean and dry. intact. decreased sensation distally. +podus boot - Urinary Catheter Management Indwelling Urethral Catheter Cath placed during this visit: yes, but has since been removed by the nurse Reason for continuing: Decision to DC catheter Insertion date: 07/09/18 Insertion time: 08:00 Removal date: 07/10/18 Removal time: 06:00 Results - Labs CBC & Chem 7: 08/14/18 05:20 07/09/18 05:20 Laboratory Results - last 24 hr 07/09/18 08:01 Urine Color [place] Urine Clarity Cloudy H Urine pH 5.0 Ur Specific [place] 1.023 Urine Protein 30 H Urine Glucose (UA) Negative Urine Ketones Negative Urine Occult Blood Small H Urine Nitrate Negative Urine Bilirubin Negative Urine Urobilinogen 4 or greater Ur Leukocyte Esterase Negative Urine RBC Less than 1 Urine WBC 3 Ur Squamous Epith Cells 9 Urine Bacteria Rare H Hyaline Casts 95 Urine Mucus Many H Micro UA Comment Cath-culture ind Urine Culture Comments Cath-cult indicated Microbiology 07/09/18 08:01 Catheterized Urine Urine Culture - Preliminary gram negative rods - Imaging Impressions Venous Doppler Study 07/10/18 00:00 CONCLUSION: 1. No sonographic evidence for lower extremity DVT. - Procedures 814 paracentesis 814 left hip reduction with IM nailing with Dr. Diaz Assessment and Plan - Problem List (1) Liver disease due to alcohol Code(s): K70.9 - Alcoholic liver disease, unspecified Status: Acute (2) Intertrochanteric fracture of left hip Code(s): S72.142A - Displaced intertrochanteric fracture of left femur, initial encounter for closed fracture Status: Acute - Assessment and Plan 1) Left Intertroch Hip Fx s/p IMN - POD 2 -WBAT -daily dressing changes -CM for DC planning--> SNF planning -podus boots bilaterally -work on stretching ankles -medical mgmt of liver issues -ultrasounds are negative for bilateral DVT -follow up with Emily or LAURA in 2 weeks A mid-level provider in my office (nurse practitioner or physician executive staff assistant) may see this patient on follow-up visits and continue to implement the objectives of this plan including: Starting or adjusting medications, injections , cast application, orthotics, brace application, physical therapy, radiological studies (including x-ray, MRI, CT, ultrasound, bone scan), vascular studies, neurologic studies, specialist consultation, and proceeding with surgical management, as appropriate.
[2018-07-11] MEDS: Lipase/Protease/Amylase 24/76/120 DR Capsule PO SCH ×3 (08:30→17:39)
[2018-07-11] MEDS: Furosemide 40 MG Tablet PO SCH (08:30)
[2018-07-11] MEDS: Propranolol 10 MG Tablet PO SCH (08:30)
[2018-07-11] MEDS: Pantoprazole Sodium 20 MG DR Tablet PO SCH (08:30)
[2018-07-11] MEDS: Spironolactone 50 MG Tablet PO SCH ×2 (08:30→20:55)
[2018-07-11] MEDS: Citalopram 20 MG Tablet PO SCH (08:31)
[2018-07-11] MEDS: Ciprofloxacin 500 MG Tablet PO SCH ×2 (08:41→20:55)
--- NOTE | 2018-07-11 12:14 | P.PNIM ---
Subjective Interval history: Complaint of significant pain still. No symptoms of abdominal pain Physical Exam Vital signs: Vital Signs 07/10/18 12:37 07/10/18 13:12 07/10/18 16:00 Temperature 98.7 F Pulse Rate 91 H Respiratory Rate 16 16 20 Blood Pressure 98/51 L Pulse Oximetry 94 L 07/10/18 20:00 07/11/18 00:00 07/11/18 02:00 Temperature 98.6 F 98.8 F Pulse Rate 93 H 95 H Respiratory Rate 18 18 17 Blood Pressure 108/55 L 101/59 L Pulse Oximetry 97 96 07/11/18 04:00 07/11/18 04:52 07/11/18 06:00 Temperature 98.3 F Pulse Rate 93 H Respiratory Rate 18 17 18 Blood Pressure 115/59 L Pulse Oximetry 95 07/11/18 08:00 07/11/18 11:59 Temperature 97.8 F 98.2 F Pulse Rate 93 H 88 Respiratory Rate 18 17 Blood Pressure 120/72 129/68 Pulse Oximetry 96 97 Intake & Output 07/10/18 07/11/18 07/11/18 18:59 06:59 18:59 Intake Total 440 / 440 320 / 320 Balance 440 / 440 320 / 320 Weight 86.5 kg Intake: IV 200 / 200 Ancef Inj 1,000 MG In NS Inj 200 / 200 100 ML @ 200 mls/hr IV.SIG Q8H LUCIE Rx#:[id number] Oral 240 / 240 320 / 320 Other: # Voids 3 4 Date of Last Bowel Movement 07/07/18 07/10/18 07/11/18 # Bowel Movements 2 Narrative: GENERAL: This is a well-nourished, well-developed patient, in no apparent distress. CARDIOVASCULAR: Regular rate and rhythm without murmurs, gallops, or rubs. RESPIRATORY: Clear to auscultation. Breath sounds equal bilaterally. No wheezes , rales, or rhonchi. GASTROINTESTINAL: Abdomen soft, non-tender, nondistended. Normal active bowel sounds MUSCULOSKELETAL: Left lower bandage clean and in place NEURO: Alert & Oriented x2 to person, plac Moves all ext x4 - Urinary Catheter Management Indwelling Urethral Catheter Cath placed during this visit: yes, but has since been removed by the nurse Reason for continuing: Decision to DC catheter Insertion date: 07/09/18 Insertion time: 08:00 Removal date: 07/10/18 Removal time: 06:00 Results - Labs CBC & Chem 7: 07/09/18 05:20 07/09/18 05:20 Laboratory Results - last 24 hr 07/09/18 08:01 Urine Color Arabella Urine Clarity Cloudy H Urine pH 5.0 Ur Specific Luck 1.023 Urine Protein 30 H Urine Glucose (UA) Negative Urine Ketones Negative Urine Occult Blood Small H Urine Nitrate Negative Urine Bilirubin Negative Urine Urobilinogen 4 or greater Ur Leukocyte Esterase Negative Urine RBC Less than 1 Urine WBC 3 Ur Squamous Epith Cells 9 Urine Bacteria Rare H Hyaline Casts 95 Urine Mucus Many H Micro UA Comment Cath-culture ind Urine Culture Comments Cath-cult indicated Microbiology 07/09/18 08:01 Catheterized Urine Urine Culture - Final Klebsiella pneumoniae Lactobacillus species - Imaging Impressions Venous Doppler Study 07/10/18 00:00 CONCLUSION: 1. No sonographic evidence for lower extremity DVT. - Procedures 814 paracentesis 814 left hip reduction with IM nailing with Dr. Diaz Assessment and Plan - Assessment (1) Intertrochanteric fracture of left hip Code(s): S72.142A - Displaced intertrochanteric fracture of left femur, initial encounter for closed fracture Status: Acute (2) Liver disease due to alcohol Code(s): K70.9 - Alcoholic liver disease, unspecified Status: Acute (3) Ascites Code(s): R18.8 - Other ascites Status: Acute - Plan 67-year-old female with a past medical history significant for liver disease secondary to alcohol abuse, anxiety, and osteopenia who presents to the emergency department after mechanical fall resulting in left trochanteric fracture. Mechanical fall Left hip fracture Status post operative day #2 left hip reduction with IM nailing -Appreciate orthopedic recommendations for postoperative care, pain control, physical therapy weight-bear as tolerated. Chronic alcoholic liver disease Cirrhosis Ascites -Status post paracentesis 07/09 -Ammonia level 71, recheck levels 79 and stable, patient does seem more confused yesterday and improved after initiation of scheduled lactulose -Continue Creon, Lasix, spironolactone, propranolol, and Protonix -Avoid hepatotoxins Klebsiella and lactobacillus urinary tract infectionstarted Cipro and Flagyl DVT prophylaxis-Lovenox Discharge Planning: Patient will need rehab placement
[2018-07-11] MEDS: metroNIDAZOLE 500 MG Tablet PO SCH ×2 (13:51→23:19)
[2018-07-11] MEDS ORDERED: Naloxone Inj 0.4 MG/ML Vial IV.PUSH PRN (15:36)
[2018-07-11] MEDS: Enoxaparin Inj 30 MG/0.3 ML Syringe SQ SCH (15:51)
[2018-07-12] MEDS: metroNIDAZOLE 500 MG Tablet PO SCH ×2 (05:25→14:57)
--- NOTE | 2018-07-12 06:08 | P.PNOP ---
Subjective Interval history: POD 3 s/p left hip intertroch no changes reports pain. has not gotten out of bed yet. Physical Exam Vital signs: Vital Signs 07/11/18 08:00 07/11/18 08:32 07/11/18 11:59 Temperature 97.8 F 98.2 F Pulse Rate 93 H 88 Respiratory Rate 18 18 17 Blood Pressure 120/72 129/68 Pulse Oximetry 96 97 07/11/18 13:53 07/11/18 16:00 07/11/18 19:57 Temperature 97.2 F L Pulse Rate 81 Respiratory Rate 18 18 18 Blood Pressure 146/87 H Pulse Oximetry 97 07/11/18 20:00 07/12/18 00:00 07/12/18 00:50 Temperature 97.4 F L 97.4 F L Pulse Rate 93 H 96 H Respiratory Rate 17 17 17 Blood Pressure 100/57 L 94/61 L Pulse Oximetry 97 97 07/12/18 04:00 Temperature 98.4 F Pulse Rate 91 H Respiratory Rate 17 Blood Pressure 109/59 L Pulse Oximetry 96 Intake & Output 07/11/18 07/11/18 07/12/18 06:59 18:59 06:59 Intake Total 320 / 320 480 / 480 Balance 320 / 320 480 / 480 Weight 86.5 kg Intake: Oral 320 / 320 480 / 480 Other: # Voids 4 3 Date of Last Bowel Movement 07/10/18 07/11/18 07/11/18 # Bowel Movements 3 Narrative: LLE: dressings clean and dry. intact. +sensation distally. inability to moves toes - Urinary Catheter Management Indwelling Urethral Catheter Cath placed during this visit: yes, but has since been removed by the nurse Reason for continuing: Decision to DC catheter Insertion date: 07/09/18 Insertion time: 08:00 Removal date: 07/10/18 Removal time: 06:00 Results - Labs CBC & Chem 7: 07/09/18 05:20 07/09/18 05:20 Microbiology 07/09/18 08:01 Catheterized Urine Urine Culture - Final Klebsiella pneumoniae Lactobacillus species - Procedures 814 paracentesis 814 left hip reduction with IM nailing with Dr. Diaz Assessment and Plan - Problem List (1) Liver disease due to alcohol Code(s): K70.9 - Alcoholic liver disease, unspecified Status: Acute (2) Intertrochanteric fracture of left hip Code(s): S72.142A - Displaced intertrochanteric fracture of left femur, initial encounter for closed fracture Status: Acute - Assessment and Plan 1) Left Intertroch Hip Fx s/p IMN - POD 3 -WBAT -daily dressing changes -CM for DC planning--> SNF planning -podus boots bilaterally -work on stretching ankles -medical mgmt of liver issues -ultrasounds are negative for bilateral DVT -ortho clear for DC to SNF -follow up with Emily or LAURA in 2 weeks A mid-level provider in my office (nurse practitioner or physician commercial lines assistant) may see this patient on follow-up visits and continue to implement the objectives of this plan including: Starting or adjusting medications, injections , cast application, orthotics, brace application, physical therapy, radiological studies (including x-ray, MRI, CT, ultrasound, bone scan), vascular studies, neurologic studies, specialist consultation, and proceeding with surgical management, as appropriate.
[2018-07-12 07:41] VITALS: RESP 18
[2018-07-12] MEDS: Furosemide 40 MG Tablet PO SCH (08:34)
[2018-07-12] MEDS: Spironolactone 50 MG Tablet PO SCH (08:34)
[2018-07-12] MEDS: Ciprofloxacin 500 MG Tablet PO SCH (08:35)
[2018-07-12] MEDS: Lipase/Protease/Amylase 24/76/120 DR Capsule PO SCH ×2 (08:35→12:15)
[2018-07-12] MEDS: Citalopram 20 MG Tablet PO SCH (08:35)
[2018-07-12] MEDS: Pantoprazole Sodium 20 MG DR Tablet PO SCH (08:35)
[2018-07-12] MEDS: Propranolol 10 MG Tablet PO SCH (08:35)
--- NOTE | 2018-07-12 11:18 | P.PNIM ---
Subjective Interval history: Pain improved., Doing better. Physical Exam Vital signs: Vital Signs 07/11/18 11:59 07/11/18 13:53 07/11/18 16:00 Temperature 98.2 F 97.2 F L Pulse Rate 88 81 Respiratory Rate 17 18 18 Blood Pressure 129/68 146/87 H Pulse Oximetry 97 97 07/11/18 19:57 07/11/18 20:00 07/12/18 00:00 Temperature 97.4 F L 97.4 F L Pulse Rate 93 H 96 H Respiratory Rate 18 17 17 Blood Pressure 100/57 L 94/61 L Pulse Oximetry 97 97 07/12/18 00:50 07/12/18 04:00 07/12/18 07:02 Temperature 98.4 F Pulse Rate 91 H Respiratory Rate 17 17 17 Blood Pressure 109/59 L Pulse Oximetry 96 07/12/18 07:40 Temperature 98.3 F Pulse Rate 97 H Respiratory Rate 18 Blood Pressure 110/56 L Pulse Oximetry 92 L Intake & Output 07/11/18 07/12/18 07/12/18 18:59 06:59 18:59 Intake Total 480 / 480 Balance 480 / 480 Weight 77 kg Intake: Oral 480 / 480 Other: # Voids 3 4 Date of Last Bowel Movement 07/11/18 07/11/18 07/11/18 # Bowel Movements 3 Narrative: GENERAL: This is a well-nourished, well-developed patient, in no apparent distress. CARDIOVASCULAR: Regular rate and rhythm RESPIRATORY: Clear to auscultation. Breath sounds equal bilaterally. No wheezes , rales, or rhonchi. GASTROINTESTINAL: Abdomen soft, non-tender, nondistended. Normal active bowel sounds MUSCULOSKELETAL: Left hip bandage clean dry intact NEURO: Alert & Oriented x 3to person, place, time - Urinary Catheter Management Indwelling Urethral Catheter Cath placed during this visit: yes, but has since been removed by the nurse Reason for continuing: Decision to DC catheter Insertion date: 07/09/18 Insertion time: 08:00 Removal date: 07/10/18 Removal time: 06:00 Results - Labs CBC & Chem 7: 07/09/18 05:20 07/09/18 05:20 Microbiology 07/09/18 08:01 Catheterized Urine Urine Culture - Final Klebsiella pneumoniae Lactobacillus species - Procedures 814 paracentesis 814 left hip reduction with IM nailing with Dr. Diaz Assessment and Plan - Assessment (1) Intertrochanteric fracture of left hip Code(s): S72.142A - Displaced intertrochanteric fracture of left femur, initial encounter for closed fracture Status: Acute (2) Liver disease due to alcohol Code(s): K70.9 - Alcoholic liver disease, unspecified Status: Acute (3) Ascites Code(s): R18.8 - Other ascites Status: Acute - Plan 67-year-old female with a past medical history significant for liver disease secondary to alcohol abuse, anxiety, and osteopenia who presents to the emergency department after mechanical fall resulting in left trochanteric fracture. Mechanical fall Left hip fracture Status post operative day #3 left hip reduction with IM nailing -Appreciate orthopedic recommendations for postoperative care, pain control, physical therapy weight-bear as tolerated. Chronic alcoholic liver disease Cirrhosis Ascites -Status post paracentesis 07/09 -Ammonia level 71, recheck levels 79 and stable, patient's confusion improved after initiation of scheduled lactulose -Continue Creon, Lasix, spironolactone, propranolol, and Protonix -Avoid hepatotoxins Klebsiella and lactobacillus urinary tract infectionstarted Cipro and Flagyl DVT prophylaxis-Lovenox Discharge Planning: [facility].
--- NOTE | 2018-07-12 11:24 | P.DS ---
Date of admission: 07/08/18 17:03 Primary care physician: UNKNOWN Anticipated date of discharge: 07/12/18 Brief History from admission: 67-year-old female with a past medical history significant for liver disease secondary to alcohol abuse, anxiety, and osteopenia who presents to the emergency department via [facility] after a fall. Patient is seen and evaluated in E- pod with at bedside. Patient reports that she was in her bathroom getting ready to have lab work done this morning for planned paracentesis which was supposed to happen tomorrow when she lost her balance. She denies any dizziness, lightheadedness, shortness of breath, chest pain prior to fall. She denies any trauma to her head or loss of consciousness. Per [facility] documentation patient had obvious deformity of left hip. Patient has also been reluctant to taking any kind of pain medication and she reports she is currently on a liver transplant list and undergoing testing and fears. She was instructed by her liver specialist that she should not take anything for pain. She reports that her liver specialist is Dr. Marichuy TUCKER in [place]. She has been undergoing paracentesis for over a year now. At the current moment she endorses left hip pain, denies any numbness or tingling to the left lower extremity. She denies any shortness of breath, nausea, headache, or chest pain at the moment. Lab work completed in the emergency department reviewed. Imaging revealed left trochanteric fracture. Patient will be admitted and orthopedic service is consulted. Consult will also be placed for ultrasound-guided paracentesis possibly tomorrow. ED PA has discussed with who agrees with low-dose IV morphine for pain and up to 2 g of acetaminophen daily. DS: Diagnosis - Discharge Diagnosis (1) Intertrochanteric fracture of left hip Status: Acute Diagnosis: Principal (2) Liver disease due to alcohol Status: Chronic Diagnosis: Secondary (3) Ascites Status: Chronic Diagnosis: Secondary (4) Urinary tract infection due to Klebsiella species Status: Resolved Diagnosis: Secondary DS: Medications - Discharge Medications Prescriptions: calcium carbonate-vitamin D3 [Caltrate with Vitamin D3] 1 tab PO BID #60 tab hydrocodone-acetaminophen 1 tab PO Q4H PRN #12 tab PRN Reason: Acute Pain rivaroxaban [Xarelto] 10 mg PO DAILY #14 tab DS: Summary Hospital Course: These are the medical issues addressed during this hospitalization: 67-year-old female with a past medical history significant for liver disease secondary to alcohol abuse, anxiety, and osteopenia who presents to the emergency department after mechanical fall resulting in left trochanteric fracture. Mechanical fall Left hip fracture Status post operative day #3 left hip reduction with IM nailing with orthopedic surgery Dr. iDaz -Appreciate orthopedic recommendations for postoperative care, pain control, physical therapy weight-bear as tolerated. Chronic alcoholic liver disease Cirrhosis Ascites -Status post paracentesis 07/09 -Ammonia level 71, recheck levels 79 and stable, patient's confusion improved after initiation of scheduled lactulose -Continue Creon, Lasix, spironolactone, propranolol, and Protonix -Avoid hepatotoxins Klebsiella and lactobacillus urinary tract infectionstarted Cipro and Flagyl DVT prophylaxis-Lovenox - Time Spent with Patient Total time spent providing and/or coordinating discharge services: Less than 30 minutes - Quality: VTE Deep Vein Thrombosis/Pulmonary Embolism Present on Admission: No Exam Vital signs: Vital Signs 07/11/18 11:59 07/11/18 13:53 07/11/18 16:00 Temperature 98.2 F 97.2 F L Pulse Rate 88 81 Respiratory Rate 17 18 18 Blood Pressure 129/68 146/87 H Pulse Oximetry 97 97 07/11/18 19:57 07/11/18 20:00 07/12/18 00:00 Temperature 97.4 F L 97.4 F L Pulse Rate 93 H 96 H Respiratory Rate 18 17 17 Blood Pressure 100/57 L 94/61 L Pulse Oximetry 97 97 07/12/18 00:50 07/12/18 04:00 07/12/18 07:02 Temperature 98.4 F Pulse Rate 91 H Respiratory Rate 17 17 17 Blood Pressure 109/59 L Pulse Oximetry 96 07/12/18 07:40 Temperature 98.3 F Pulse Rate 97 H Respiratory Rate 18 Blood Pressure 110/56 L Pulse Oximetry 92 L Intake & Output 07/11/18 07/12/18 07/12/18 18:59 06:59 18:59 Intake Total 480 / 480 Balance 480 / 480 Weight 77 kg Intake: Oral 480 / 480 Other: # Voids 3 4 Date of Last Bowel Movement 07/11/18 07/11/18 07/11/18 # Bowel Movements 3 Narrative: GENERAL: This is a well-nourished, well-developed patient, in no apparent distress. CARDIOVASCULAR: Regular rate and rhythm RESPIRATORY: Clear to auscultation. Breath sounds equal bilaterally. No wheezes , rales, or rhonchi. GASTROINTESTINAL: Abdomen soft, non-tender, mild distention to ascites, normoactive bowel sounds MUSCULOSKELETAL: Left hip bandage clean dry intact NEURO: Alert & Oriented x3 to person, place, time,. Moves all ext x4 Results Procedures completed during hospitalization: 814 paracentesis 814 left hip reduction with IM nailing with Dr. Diaz - Impressions ITS Impressions Chest X-Ray 07/08/18 14:50 CONCLUSION: Minimal bibasilar parental changes, nonspecific. Femur X-Ray 07/08/18 14:50 CONCLUSION: Trochanteric fracture left hip Hip X-Ray 07/09/18 00:00 CONCLUSION: Open reduction and internal fixation of the left intertrochanteric fracture as above. Paracentesis Ultrasound 07/09/18 00:00 CONCLUSION: Uncomplicated ultrasound-guided abdominal paracentesis as above. Venous Doppler Study 07/10/18 00:00 CONCLUSION: 1. No sonographic evidence for lower extremity DVT. Discharge Plan - Discharge Disposition Patient Disposition: 03 Discharge to SNF - Discharge Condition Condition: Good - Discharge Order Discharge Orders: Discharge Order (Routine); Ordered 07/12/18 Ordered By: Tika Banks [facility] for Discharge (Routine); Ordered 07/12/18 Ordered By: Castro Cheung - Discharge Details Anticipated Discharge Date: 07/12/18 - Physicians Team Primary Care Provider: UNKNOWN, Attending Provider: Tika Banks Other Providers: Levi Souza MD ; [facility],[place] ; Josemanuel Diaz MD
[2018-07-12 11:41] VITALS: BP 105/63; PULSE 96; TEMP 98.2; O2SAT 98
[2018-07-12] MEDS: Enoxaparin Inj 30 MG/0.3 ML Syringe SQ SCH (15:00)
== END 2018-07-12 15:50 ==
LOC: NEPE 14:41 → NEDH 17:03 → N06 21:24
PROVIDERS: ADMIT Family Medicine; ATTEND Family Medicine
PROC: ORIFHIP (2018-07-09 15:23)

== ENCOUNTER 2018-07-15 20:08 | Inpatient (IN) ==
[~2018-07-15 20:08] MED LIST changes: +Atropine Inj 1 MG/10 ML Syringe IV.PUSH ONE; -CITA20TA4 PO; -CREO3000 PO; +Calcium Chloride Inj 1 GM/10 ML Syringe IV.CONT ONE; +DOPamine 800 MG/500 ML Premix 800 MG/500 ML PLAST..BAG IV.CONT ONE; -FURO1TAB60 PO; -LACT10SO PO; +Norepinephrine Inj 4 MG/4 ML Ampul IV.CONT ONE; -OMEP20TA93 PO; -PROP10TA6 PO; -SPIR50TA PO; +Sodium Bicarbonate 8.4% Inj 50 MEQ/50 ML Syringe IV.CONT ONE
[2018-07-15] MEDS ORDERED: Dextrose 50% in Water Syringe 50 ML ONE (20:46)
[2018-07-15] MEDS ORDERED: DOPamine 800 MG/500 ML Premix 800 MG/500 ML PLAST..BAG IV.CONT PRN (20:48)
[2018-07-15] MEDS ORDERED: Dextrose 50% in Water 50 ML Vial IV.PUSH ONE (20:48)
[2018-07-15] MEDS ORDERED: Pantoprazole Inj 80 MG in Sodium Chlor 0.9% Inj 35 ML IV.SIG ONE (20:58)
[2018-07-15] MEDS ORDERED: Etomidate Inj 20 MG/10 ML Ampul IV.PUSH ONE (20:59)
[2018-07-15] MEDS ORDERED: Sod Chloride 0.9% Inj 1,000 ML IV.CONT SCH (21:00)
[2018-07-15] MEDS ORDERED: Atropine Inj 1 MG/ML Vial IV.PUSH PRN (21:00)
[2018-07-15] MEDS ORDERED: Calcium Chloride Inj 1 GM/10 ML Syringe IV.PUSH ONE ×2 (21:01)
--- NOTE | 2018-07-15 21:11 | ED ---
HPI General Chief complaint: Altered Mental Status Stated complaint: AMS Time Seen by Provider: 07/15/18 20:48 Source: EMS Mode of arrival: EMS Limitations: altered mental status History of Present Illness HPI narrative: The patient is a 67 year old female who presents to the [facility] emergency department with a history of altered mentation reportedly that began 20 minutes prior to ambulance services arrival at her rehabilitation facility. Upon ambulance services arrival the patient was noted to have a decreased level of consciousness, moaning only in response. The patient is difficult to obtain IV access in. The patient was noted to be hypoglycemic with a blood sugar in the 60s prior to arrival. She was noted to be hypotensive with a blood pressure reportedly 54 systolic with a pulse in the 50s. An EKG was transmitted to this facility prior to arrival and appeared to be a wide-complex bradycardia suspicious for hyperkalemia. An i-STAT was ordered to be done on the patient immediately on arrival. Respiratory therapy was at the bedside to assist with airway. The patient was intermittently moaning on arrival. Otherwise the patient had no purposeful motor activity. The patient's pupils were equal round and reactive to light with pupils that were approximately 4 mm. The patient's blood sugar on arrival was noted to be in the 40s on repeat evaluation, therefore an amp of D50 was administered. The patient's initial blood pressure was 90/40, however this quickly dropped down to the 70s systolic. The patient's heart rate was in the 40s on arrival. The patient was given atropine 0.5 mg IV. The charge nurse was able to speak to the patient's family regarding this patient's case. The patient had intermittently at the rehabilitation facility since her recent hip replacement been complaining of chest pain and shortness of breath. The patient has also had poor p.o. intake, reportedly having a sore throat. No other history was able to be obtained regarding this patient's case. Related Data Home Medications Medication Instructions Recorded Confirmed citalopram 20 mg PO DAILY 07/08/18 07/15/18 esomeprazole magnesium [Nexium] 20 mg PO DAILY 07/08/18 07/15/18 furosemide [Lasix] 40 mg PO DAILY 07/08/18 07/15/18 propranolol 10 mg PO DAILY 07/08/18 07/15/18 spironolactone 50 mg PO BID 07/08/18 07/15/18 [id number] [Creon] 1 cap PO TID 07/15/18 07/15/18 Previous Rx's Medication Instructions Recorded calcium carbonate-vitamin D3 1 tab PO BID #60 tab 07/09/18 [Caltrate with Vitamin D3] rivaroxaban [Xarelto] 10 mg PO DAILY #14 tab 07/09/18 ciprofloxacin HCl 500 mg PO Q12HR #12 tab 07/11/18 metronidazole 500 mg PO Q8HR #18 tab 07/11/18 hydrocodone-acetaminophen 1 tab PO Q4H PRN #12 tab 07/12/18 Allergies Allergy/AdvReac Type Severity Reaction Status Date / Time zolpidem Allergy Severe Dizziness Verified 07/15/18 20:29 Review of Systems ROS Unobtainable ROS Unobtainable: unobtainable due to mental status PMFSH Social History Social History Substance History: Past History Second Hand Smoke Exposure: No Smoking Status: Former smoker Tobacco Type: Cigarettes How Often Do You Have a Drink Containing Alcohol: Unable to Obtain Recent Travel in [facility] within the Last 8 Weeks: No Recent Out of Country Travel within the Last 8 Weeks: No Exam Narrative Exam Narrative: General: The patient is a well-developed, well-nourished female with a decreased level of consciousness on arrival, intermittently moving her head from side to side, softly moaning.. Head and Neck exam: Head is normocephalic atraumatic. Eyes: extraocular motion testing is unable to be accomplished as the patient arrives with a decreased level of consciousness. Pupils are equal round and reactive to light and 3-4 mm bilaterally. Nose: Midline septum with pink mucous membranes Mouth: Dentition unremarkable. Moist mucus membranes. Posterior oropharynx is not erythematous. No tonsillar hypertrophy. Uvula midline. Airway patent. Neck: No palpable lymphadenopathy. No nuchal rigidity. No thyromegaly. Cardiovascular: Bradycardic with heart rate in the 40s, decreased palpable pulses in her extremities. Cool mottled extremities noted. Lungs: Equal breath sounds bilaterally with oxygenation being supplemented by nonrebreather mask. No wheezes, rhonchi, or rales. Abdomen: Soft, slightly distended with a history of reported ascites related to cirrhosis, without tenderness to palpation in all 4 quadrants of the abdomen. No guarding, rebound, or rigidity. Extremities: No clubbing or cyanosis. The patient has 1+ pitting edema bilateral lower extremities. The patient has ecchymosis noted to the left thigh , bandage in place that is clean, dry, and intact related to a recent hip surgery. Neurologic Exam: The patient arrives with a GCS of 7. Eyes 4. Motor 1. Verbal- 2. The patient moves her head from side to side and spontaneously will softly moaning. The patient spontaneously opens her eyes. The patient has an unfocused gaze. The patient has no motor movements noted of her lower extremities. Skin Exam: No rash noted. Intact skin that is cool to touch, dry to touch, slightly mottled. Procedures Intubation Time Out Performed: No Sedative: etomidate Mg Given: 20 Laryngoscope: Michael ET Tube Size: 7.5 ET Tube Uncuffed: Yes Tube Secured Depth (cm): 22 Tube Secured Location: teeth Tube Placement Confirmation: visualized tube passing through cords, equal breath sounds bilaterally, no breath sounds over epigastrium and confirmation by capnometry Patient Tolerated Procedure: well Intubation Complications: none Course Reevaluation(s) Reevaluation #1: The patient was repeatedly reevaluated with EKGs repeated for evaluation of improvement and bradycardia, and improvement in the wide-complex QRS. Reevaluation #2: Unfortunately, when the OG tube was placed the patient had bloody aspirate obtained. The patient had blood that would occasionally pool out of the mouth. Reevaluation #3: The patient developed a subconjunctival hemorrhage of the right eye. Due to the multiple sites of bleeding it was of concern that the patient was developing DIC. At this point the care of the patient was assumed by the primary teaching assistant who did start transfusing platelets and fresh frozen plasma. Consultations Consultation #1: The patient's case including history, pertinent physical examination findings, and laboratory studies were discussed with Dr. Tay. It was agreed that the patient would be admitted to the primary teaching assistant's service. Initial Documented Vital Signs Pulse Rate 50 L 07/15/18 20:12 Respiratory Rate 9 L 07/15/18 20:12 Blood Pressure 90/40 L 07/15/18 20:12 Last Documented Vital Signs Temperature 96 F L 07/16/18 05:00 Pulse Rate 85 07/16/18 05:00 Respiratory Rate 18 07/16/18 05:00 Blood Pressure 37/25 L 07/16/18 05:00 Pulse Oximetry 96 07/16/18 01:16 Critical Care Time Critical Care Time: Yes Total Critical Care Time: 38 Attestation: Aggregate critical care time was 38 minutes. Time to perform other separately billable procedures was not included in the critical care time. My time did not include minutes spent treating any other patients simultaneously or on activities that did not directly contribute to the patient's treatment. The services I provided to this patient were to treat and/or prevent clinically significant deterioration that could result in: Cardiovascular collapse related to cardiac arrhythmia, versus respiratory failure, versus hypoxic brain injury I provided critical care services requiring my management, as noted below: Chart data review, documentation time, medication orders and management, vital sign assessments/reviewing monitor data, ordering and reviewing lab tests, ordering and interpreting/reviewing x-rays and diagnostic studies, care of the patient and discussion of the patient with the admitting physicians. Medical Decision Making MDM Narrative Medical decision making narrative: During the course of the patient's emergency department visit, the patient was placed on a desk monitor with oximetry and frequent blood pressure monitoring. The patient had IV access placed in bilateral upper extremities, left EJ placed by me, 18-gauge Angiocath in the left side of the neck. The patient arrives with an IO in place and the right lower extremity that appears to be flowing well with normal saline attached to a pressure bag. The patient was initially provided after hypoglycemia was confirmed with a blood sugar in the 40s, 1 amp of D50 was provided, due to the wide-complex bradycardia and concern for possible hyperkalemia as a cause the patient was given calcium chloride 1 g IV. The patient continued to be bradycardic and was given atropine 0.5 mg IV. She briefly had a response with a heart rate in the 70s-80s. Blood pressure continue to be difficult to obtain, initially manual blood pressure was 90/40, however this quickly dropped down into the 70s systolic. The patient was started on a norepinephrine drip. An i-STAT with creatinine was ordered. We were preparing for RSI in this patient, however the patient only required etomidate for sedation for intubation. The patient was given 20 mg of etomidate and intubated by me by first pass with a Michael blade. 7-1/2 endotracheal tube, cuffed was placed into the airway. A post intubation chest x-ray has been ordered. CT scan of the brain was ordered due to the patient's altered mentation. The patient is on Xarelto. The patient had an OG tube placed to gravity and was noted to have bright red blood upon suctioning. Blood was pulling out of the patient's mouth. The patient's i- STAT with creatinine came back with a hemoglobin of 6. 2 units of emergency release blood was ordered. Due to the patient's hypotension the patient was initially placed on 2 L normal saline on pressure bags. The patient had a Padilla catheter temperature-sensing placed in her bladder. The patient's initial temperature was 91 which could be contributing to the patient's bradycardia and hypotension. A bear hugger was placed on the patient. As the patient has a history of cirrhosis, Protonix 80 mg IV will be administered as a bolus for her GI bleed. After intubation, an ABG was ordered. The patient's ABG revealed a pH of 7.057 , PCO2 of 32.9, bicarb 8.8, PO2 was only 38.9, hemoglobin 4.2 on ABG. It was suspected that this was a venous blood gas, therefore a repeat ABG was ordered. The patient is on an FiO2 of 100%. A call was placed out to the primary teaching assistant regarding this patient's evaluation. He recommended starting the patient on dopamine. He then quickly arrived in the emergency department. The patient was started on dopamine. Care of the patient was assumed by Dr. Tay. I-STAT with creatinine showed that the patient had a sodium of 112, potassium 7.5, chloride 85, BUN 106, creatinine 5.5, glucose 206, hemoglobin 6.1. In total 3 A of bicarbonate was administered. A second milligram of calcium chloride was administered. As the patient was bleeding from multiple sites, there was a concern for the patient having DIC. The patient's care was assumed by the primary teaching assistant who was starting the patient on fresh frozen plasma and platelets. Emergency release blood had already been ordered by me. The patient was admitted to the hospital in critical condition and sent to a bed under the care of the primary teaching assistant service. Medical Screen Exam Complete: Yes Emergency Medical Condition: Yes Differential Diagnosis Differential Diagnosis: Renal failure with hyperkalemia, versus heart block, versus sepsis, versus hypothermia, versus pulmonary embolism, versus acute coronary syndrome Medical Records Medical records reviewed: Yes I reviewed the patient's medical records. Lab Data Lab results reviewed: Yes I reviewed the patient's lab results. Result diagrams: 07/15/18 21:29 07/15/18 23:20 Lab Results 07/15/18 07/15/18 07/15/18 Range/Units 00:21 20:18 20:18 WBC (4.0-11.0) th/mm3 RBC (4.00-5.30) mil/mm3 Hgb (11.6-15.3) gm/dL POC Hgb (Calc) 6.1 L* (11.6-15.3) g/dL Hct (35.0-46.0) % POC Hct 18.0 L* (35-46.0) % MCV (80.0-100.0) fL MCH (27.0-34.0) pg MCHC (32.0-36.0) % RDW (11.6-17.2) % Plt Count (150-450) th/mm3 MPV (7.0-11.0) fL Prelim Diff (Auto) WBC Differential Seg Neuts % (Manual) (16-70) % Band Neuts % (Manual) (0-6) % Lymphocytes % (Manual) (9-44) % Monocytes % (Manual) (0-8) % Metamyelocytes % (Man) (0-1) % Myelocytes % (Man) (0-0) % Promyelocytes % (Man) (0-0) % Blast Cells % (Manual) (0-0) % Abs Neuts (Manual) (1.8-7.7) th/mm3 Nucleated RBCs/100 WBC (0-0) /100 WBC Differential Comment Toxic Granulation (None) Platelet Estimate (Normal) Platelet Morphology (Normal) Polychromasia (0.0-1.9) % Ovalocytes (None) Zambrano-L[place] Bodies (None) Acanthocytes (Spur) (None) Keratocytes (None) PT (9.8-11.6) sec INR Ratio APTT (24.3-30.1) sec Fibrinogen (227-377) mg/dL Puncture Site Patient Temperature O2 Saturation (90-100) % ABG pH (7.380-7.420) ABG pCO2 (38-42) mmHg ABG pO2 (61-120) mmHg ABG HCO3 (22-26) mmol/L ABG O2 Content (12.0-20.0) Vol % ABG Base Excess (-2-2) mmol/L ABG Methemoglobin (0-2) % Darci Test Hemoglobin (12.0-16.0) G/DL Carboxyhemoglobin (0-4) % O2 Delivery Device Vent Setting Inspired O2 % Critical Value POC Sodium 112 L* (137-144) mmol/L Sodium (136-145) meq/L POC Potassium 7.5 H* (3.6-5.0) mmol/L Potassium (3.5-5.1) meq/L POC Chloride 85 L (102-111) mmol/L Chloride (98-107) meq/L Carbon Dioxide (21.0-32.0) meq/L Anion Gap (5-15) meq/L POC BUN 106 H (5-21) mg/dL BUN (7-18) mg/dL Creatinine (0.50-1.00) mg/dL POC Creatinine 5.5 H (0.6-1.3) mg/dL Estimated GFR (>89) mL/min POC Glucose 206 H (68-110) mg/dL Random Glucose (74-106) mg/dL Lactic Acid (0.4-2.0) mmol/L Calcium (8.5-10.1) mg/dL Magnesium (1.5-2.5) mg/dL Total Bilirubin (0.2-1.0) mg/dL AST (15-37) U/L ALT (10-53) U/L Alkaline Phosphatase (45-117) U/L Ammonia (11-32) mcmol/L Total Creatine Kinase (26-192) U/L CK-MB (CK-2) (0.5-3.6) ng/mL CK-MB (CK-2) % (0.0-4.0) % Troponin I (0.02-0.05) ng/mL B-Natriuretic Peptide (0-100) pg/mL Total Protein (6.4-8.2) g/dL Albumin (3.4-5.0) g/dL TSH 1.950 (0.358-3.740) uIU/mL Free T4 0.99 (0.76-1.46) ng/dL Cortisol mcg/dL Urine Color (Yellw/Straw) Urine Clarity (Clear) Urine pH (5.0-8.5) Ur Specific Vivian (1.002-1.035) Urine Protein (Neg-Trace) mg/dL Urine Glucose (UA) (Negative) mg/dL Urine Ketones (Negative) mg/dL Urine Occult Blood (Negative) Urine Nitrate (Negative) Urine Bilirubin (Negative) Urine Urobilinogen (Less than 2) mg/dL Ur Leukocyte Esterase (Negative) Urine RBC (0-3) /hpf Urine WBC (0-5) /hpf Ur Squamous Epith Cells (0-5) /hpf Urine Bacteria (None) /hpf Hyaline Casts (0-3) /lpf Urine Mucus (Occasional) /lpf Micro UA Comment Urine Culture Comments Nasal Screen MRSA (PCR) (Negative) Urine Opiates Screen (Neg) Ur Barbiturates Screen (Neg) Ur Amphetamines Screen (Neg) U Benzodiazepines Scrn (Neg) Urine Cocaine Screen (Neg) U Cannabinoids Screen (Neg) Serum Alcohol (0-5) mg/dL Blood Type Antibody Screen MTS Gel Crossmatch Blood Bank Comment 07/15/18 07/15/18 07/15/18 Range/Units 20:40 20:55 21:20 WBC (4.0-11.0) th/mm3 RBC (4.00-5.30) mil/mm3 Hgb (11.6-15.3) gm/dL POC Hgb (Calc) (11.6-15.3) g/dL Hct (35.0-46.0) % POC Hct (35-46.0) % MCV (80.0-100.0) fL MCH (27.0-34.0) pg MCHC (32.0-36.0) % RDW (11.6-17.2) % Plt Count (150-450) th/mm3 MPV (7.0-11.0) fL Prelim Diff (Auto) WBC Differential Seg Neuts % (Manual) (16-70) % Band Neuts % (Manual) (0-6) % Lymphocytes % (Manual) (9-44) % Monocytes % (Manual) (0-8) % Metamyelocytes % (Man) (0-1) % Myelocytes % (Man) (0-0) % Promyelocytes % (Man) (0-0) % Blast Cells % (Manual) (0-0) % Abs Neuts (Manual) (1.8-7.7) th/mm3 Nucleated RBCs/100 WBC (0-0) /100 WBC Differential Comment Toxic Granulation (None) Platelet Estimate (Normal) Platelet Morphology (Normal) Polychromasia (0.0-1.9) % Ovalocytes (None) Zambrano-[place] Bodies (None) Acanthocytes (Spur) (None) Keratocytes (None) PT (9.8-11.6) sec INR Ratio APTT (24.3-30.1) sec Fibrinogen (227-377) mg/dL Puncture Site Right femoral Right femoral Patient Temperature 98.6 98.6 O2 Saturation 43 L* 39 L* (90-100) % ABG pH 7.06 L* 7.17 L* (7.380-7.420) ABG pCO2 33 L 38 (38-42) mmHg ABG pO2 39 L* 35 L* (61-120) mmHg ABG HCO3 9 L* 13 L* (22-26) mmol/L ABG O2 Content 2.6 L 2.2 L (12.0-20.0) Vol % ABG Base Excess -19.4 L -13.9 L (-2-2) mmol/L ABG Methemoglobin 0.7 1.0 (0-2) % Darci Test Hemoglobin 4.2 L* 3.9 L* (12.0-16.0) G/DL Carboxyhemoglobin 1.0 1.0 (0-4) % O2 Delivery Device Ventilator Ventilator Vent Setting Ac/16/500/peep 5 Ac/16/500/peep 5 Inspired O2 100 100 % Critical Value Yes Yes POC Sodium (137-144) mmol/L Sodium (136-145) meq/L POC Potassium (3.6-5.0) mmol/L Potassium (3.5-5.1) meq/L POC Chloride (102-111) mmol/L Chloride (98-107) meq/L Carbon Dioxide (21.0-32.0) meq/L Anion Gap (5-15) meq/L POC BUN (5-21) mg/dL BUN (7-18) mg/dL Creatinine (0.50-1.00) mg/dL POC Creatinine (0.6-1.3) mg/dL Estimated GFR (>89) mL/min POC Glucose (68-110) mg/dL Random Glucose (74-106) mg/dL Lactic Acid (0.4-2.0) mmol/L Calcium (8.5-10.1) mg/dL Magnesium (1.5-2.5) mg/dL Total Bilirubin (0.2-1.0) mg/dL AST (15-37) U/L ALT (10-53) U/L Alkaline Phosphatase (45-117) U/L Ammonia (11-32) mcmol/L Total Creatine Kinase (26-192) U/L CK-MB (CK-2) (0.5-3.6) ng/mL CK-MB (CK-2) % (0.0-4.0) % Troponin I (0.02-0.05) ng/mL B-Natriuretic Peptide (0-100) pg/mL Total Protein (6.4-8.2) g/dL Albumin (3.4-5.0) g/dL TSH (0.358-3.740) uIU/mL Free T4 (0.76-1.46) ng/dL Cortisol mcg/dL Urine Color (Yellw/Straw) Urine Clarity (Clear) Urine pH (5.0-8.5) Ur Specific Vivian (1.002-1.035) Urine Protein (Neg-Trace) mg/dL Urine Glucose (UA) (Negative) mg/dL Urine Ketones (Negative) mg/dL Urine Occult Blood (Negative) Urine Nitrate (Negative) Urine Bilirubin (Negative) Urine Urobilinogen (Less than 2) mg/dL Ur Leukocyte Esterase (Negative) Urine RBC (0-3) /hpf Urine WBC (0-5) /hpf Ur Squamous Epith Cells (0-5) /hpf Urine Bacteria (None) /hpf Hyaline Casts (0-3) /lpf Urine Mucus (Occasional) /lpf Micro UA Comment Urine Culture Comments Nasal Screen MRSA (PCR) (Negative) Urine Opiates Screen Pos H (Neg) Ur Barbiturates Screen Neg (Neg) Ur Amphetamines Screen Neg (Neg) U Benzodiazepines Scrn Neg (Neg) Urine Cocaine Screen Neg (Neg) U Cannabinoids Screen Neg (Neg) Serum Alcohol (0-5) mg/dL Blood Type Antibody Screen MTS Gel Crossmatch Blood Bank Comment 08/20/18 08/20/18 08/20/18 Range/Units 21:20 21:29 21:29 WBC 16.4 H (4.0-11.0) th/mm3 RBC 1.40 L (4.00-5.30) mil/mm3 Hgb 4.6 L* (11.6-15.3) gm/dL POC Hgb (Calc) (11.6-15.3) g/dL Hct 14.8 L* (35.0-46.0) % POC Hct (35-46.0) % MCV 105.3 H (80.0-100.0) fL MCH 33.0 (27.0-34.0) pg MCHC 31.3 L (32.0-36.0) % RDW 19.8 H (11.6-17.2) % Plt Count 42 L D (150-450) th/mm3 MPV 9.8 (7.0-11.0) fL Prelim Diff (Auto) Manual diff required WBC Differential Manual diff final Seg Neuts % (Manual) 58 (16-70) % Band Neuts % (Manual) 20 H (0-6) % Lymphocytes % (Manual) 2 L (9-44) % Monocytes % (Manual) 6 (0-8) % Metamyelocytes % (Man) 6 H (0-1) % Myelocytes % (Man) 1 H (0-0) % Promyelocytes % (Man) 6 H (0-0) % Blast Cells % (Manual) 1 H (0-0) % Abs Neuts (Manual) 14.9 H (1.8-7.7) th/mm3 Nucleated RBCs/100 WBC 6 H (0-0) /100 WBC Differential Comment . Toxic Granulation 2+ H (None) Platelet Estimate Low L (Normal) Platelet Morphology Normal (Normal) Polychromasia 4.0 H (0.0-1.9) % Ovalocytes 1+ H (None) Zambrano-[place] Bodies Present H (None) Acanthocytes (Spur) Occ H (None) Keratocytes 1+ H (None) PT 206.6 H D (9.8-11.6) sec INR 20.9 H* Ratio APTT Greater than 277.5 H* (24.3-30.1) sec Fibrinogen (227-377) mg/dL Puncture Site Patient Temperature O2 Saturation (90-100) % ABG pH (7.380-7.420) ABG pCO2 (38-42) mmHg ABG pO2 (61-120) mmHg ABG HCO3 (22-26) mmol/L ABG O2 Content (12.0-20.0) Vol % ABG Base Excess (-2-2) mmol/L ABG Methemoglobin (0-2) % Darci Test Hemoglobin (12.0-16.0) G/DL Carboxyhemoglobin (0-4) % O2 Delivery Device Vent Setting Inspired O2 % Critical Value POC Sodium (137-144) mmol/L Sodium (136-145) meq/L POC Potassium (3.6-5.0) mmol/L Potassium (3.5-5.1) meq/L POC Chloride (102-111) mmol/L Chloride (98-107) meq/L Carbon Dioxide (21.0-32.0) meq/L Anion Gap (5-15) meq/L POC BUN (5-21) mg/dL BUN (7-18) mg/dL Creatinine (0.50-1.00) mg/dL POC Creatinine (0.6-1.3) mg/dL Estimated GFR (>89) mL/min POC Glucose (68-110) mg/dL Random Glucose (74-106) mg/dL Lactic Acid (0.4-2.0) mmol/L Calcium (8.5-10.1) mg/dL Magnesium (1.5-2.5) mg/dL Total Bilirubin (0.2-1.0) mg/dL AST (15-37) U/L ALT (10-53) U/L Alkaline Phosphatase (45-117) U/L Ammonia (11-32) mcmol/L Total Creatine Kinase (26-192) U/L CK-MB (CK-2) (0.5-3.6) ng/mL CK-MB (CK-2) % (0.0-4.0) % Troponin I (0.02-0.05) ng/mL B-Natriuretic Peptide (0-100) pg/mL Total Protein (6.4-8.2) g/dL Albumin (3.4-5.0) g/dL TSH (0.358-3.740) uIU/mL Free T4 (0.76-1.46) ng/dL Cortisol mcg/dL Urine Color Arabella (Yellw/Straw) Urine Clarity Cloudy H (Clear) Urine pH 5.0 (5.0-8.5) Ur Specific Vivian 1.023 (1.002-1.035) Urine Protein Negative (Neg-Trace) mg/dL Urine Glucose (UA) 50 (Negative) mg/dL Urine Ketones Negative (Negative) mg/dL Urine Occult Blood Small H (Negative) Urine Nitrate Negative (Negative) Urine Bilirubin Negative (Negative) Urine Urobilinogen Less than 2 (Less than 2) mg/dL Ur Leukocyte Esterase Trace H (Negative) Urine RBC 3 (0-3) /hpf Urine WBC 23 H (0-5) /hpf Ur Squamous Epith Cells 21 (0-5) /hpf Urine Bacteria Rare H (None) /hpf Hyaline Casts 42 (0-3) /lpf Urine Mucus Few H (Occasional) /lpf Micro UA Comment Cath-culture ind Urine Culture Comments Cath-cult indicated Nasal Screen MRSA (PCR) (Negative) Urine Opiates Screen (Neg) Ur Barbiturates Screen (Neg) Ur Amphetamines Screen (Neg) U Benzodiazepines Scrn (Neg) Urine Cocaine Screen (Neg) U Cannabinoids Screen (Neg) Serum Alcohol (0-5) mg/dL Blood Type Antibody Screen MTS Gel Crossmatch Blood Bank Comment 07/15/18 07/15/18 07/15/18 Range/Units 21:29 21:29 21:29 WBC (4.0-11.0) th/mm3 RBC (4.00-5.30) mil/mm3 Hgb (11.6-15.3) gm/dL POC Hgb (Calc) (11.6-15.3) g/dL Hct (35.0-46.0) % POC Hct (35-46.0) % MCV (80.0-100.0) fL MCH (27.0-34.0) pg MCHC (32.0-36.0) % RDW (11.6-17.2) % Plt Count (150-450) th/mm3 MPV (7.0-11.0) fL Prelim Diff (Auto) WBC Differential Seg Neuts % (Manual) (16-70) % Band Neuts % (Manual) (0-6) % Lymphocytes % (Manual) (9-44) % Monocytes % (Manual) (0-8) % Metamyelocytes % (Man) (0-1) % Myelocytes % (Man) (0-0) % Promyelocytes % (Man) (0-0) % Blast Cells % (Manual) (0-0) % Abs Neuts (Manual) (1.8-7.7) th/mm3 Nucleated RBCs/100 WBC (0-0) /100 WBC Differential Comment Toxic Granulation (None) Platelet Estimate (Normal) Platelet Morphology (Normal) Polychromasia (0.0-1.9) % Ovalocytes (None) Zambrano-[place] Bodies (None) Acanthocytes (Spur) (None) Keratocytes (None) PT (9.8-11.6) sec INR Ratio APTT (24.3-30.1) sec Fibrinogen (227-377) mg/dL Puncture Site Patient Temperature O2 Saturation (90-100) % ABG pH (7.380-7.420) ABG pCO2 (38-42) mmHg ABG pO2 (61-120) mmHg ABG HCO3 (22-26) mmol/L ABG O2 Content (12.0-20.0) Vol % ABG Base Excess (-2-2) mmol/L ABG Methemoglobin (0-2) % Darci Test Hemoglobin (12.0-16.0) G/DL Carboxyhemoglobin (0-4) % O2 Delivery Device Vent Setting Inspired O2 % Critical Value POC Sodium (137-144) mmol/L Sodium 127 L (136-145) meq/L POC Potassium (3.6-5.0) mmol/L Potassium 6.3 H (3.5-5.1) meq/L POC Chloride (102-111) mmol/L Chloride 90 L (98-107) meq/L Carbon Dioxide 11.8 L (21.0-32.0) meq/L Anion Gap 25 H (5-15) meq/L POC BUN (5-21) mg/dL BUN 90 H (7-18) mg/dL Creatinine 4.74 H (0.50-1.00) mg/dL POC Creatinine (0.6-1.3) mg/dL Estimated GFR 9 L (>89) mL/min POC Glucose (68-110) mg/dL Random Glucose 211 H (74-106) mg/dL Lactic Acid 18.1 H* (0.4-2.0) mmol/L Calcium 9.0 (8.5-10.1) mg/dL Magnesium 2.5 (1.5-2.5) mg/dL Total Bilirubin 3.0 H (0.2-1.0) mg/dL AST 760 H (15-37) U/L ALT 120 H (10-53) U/L Alkaline Phosphatase 56 (45-117) U/L Ammonia 47 H (11-32) mcmol/L Total Creatine Kinase 279 H (26-192) U/L CK-MB (CK-2) 6.2 H (0.5-3.6) ng/mL CK-MB (CK-2) % 2.2 (0.0-4.0) % Troponin I 0.23 H (0.02-0.05) ng/mL B-Natriuretic Peptide (0-100) pg/mL Total Protein 2.2 L (6.4-8.2) g/dL Albumin 0.7 L (3.4-5.0) g/dL TSH 2.320 (0.358-3.740) uIU/mL Free T4 (0.76-1.46) ng/dL Cortisol mcg/dL Urine Color (Yellw/Straw) Urine Clarity (Clear) Urine pH (5.0-8.5) Ur Specific Vivian (1.002-1.035) Urine Protein (Neg-Trace) mg/dL Urine Glucose (UA) (Negative) mg/dL Urine Ketones (Negative) mg/dL Urine Occult Blood (Negative) Urine Nitrate (Negative) Urine Bilirubin (Negative) Urine Urobilinogen (Less than 2) mg/dL Ur Leukocyte Esterase (Negative) Urine RBC (0-3) /hpf Urine WBC (0-5) /hpf Ur Squamous Epith Cells (0-5) /hpf Urine Bacteria (None) /hpf Hyaline Casts (0-3) /lpf Urine Mucus (Occasional) /lpf Micro UA Comment Urine Culture Comments Nasal Screen MRSA (PCR) (Negative) Urine Opiates Screen (Neg) Ur Barbiturates Screen (Neg) Ur Amphetamines Screen (Neg) U Benzodiazepines Scrn (Neg) Urine Cocaine Screen (Neg) U Cannabinoids Screen (Neg) Serum Alcohol Less than 3 (0-5) mg/dL Blood Type Antibody Screen MTS Gel Crossmatch Blood Bank Comment 07/15/18 07/15/18 07/15/18 Range/Units 21:29 21:29 21:50 WBC (4.0-11.0) th/mm3 RBC (4.00-5.30) mil/mm3 Hgb (11.6-15.3) gm/dL POC Hgb (Calc) (11.6-15.3) g/dL Hct (35.0-46.0) % POC Hct (35-46.0) % MCV (80.0-100.0) fL MCH (27.0-34.0) pg MCHC (32.0-36.0) % RDW (11.6-17.2) % Plt Count (150-450) th/mm3 MPV (7.0-11.0) fL Prelim Diff (Auto) WBC Differential Seg Neuts % (Manual) (16-70) % Band Neuts % (Manual) (0-6) % Lymphocytes % (Manual) (9-44) % Monocytes % (Manual) (0-8) % Metamyelocytes % (Man) (0-1) % Myelocytes % (Man) (0-0) % Promyelocytes % (Man) (0-0) % Blast Cells % (Manual) (0-0) % Abs Neuts (Manual) (1.8-7.7) th/mm3 Nucleated RBCs/100 WBC (0-0) /100 WBC Differential Comment Toxic Granulation (None) Platelet Estimate (Normal) Platelet Morphology (Normal) Polychromasia (0.0-1.9) % Ovalocytes (None) Zambrano-[place] Bodies (None) Acanthocytes (Spur) (None) Keratocytes (None) PT (9.8-11.6) sec INR Ratio APTT (24.3-30.1) sec Fibrinogen Less than 50 L* (227-377) mg/dL Puncture Site Patient Temperature O2 Saturation (90-100) % ABG pH (7.380-7.420) ABG pCO2 (38-42) mmHg ABG pO2 (61-120) mmHg ABG HCO3 (22-26) mmol/L ABG O2 Content (12.0-20.0) Vol % ABG Base Excess (-2-2) mmol/L ABG Methemoglobin (0-2) % Darci Test Hemoglobin (12.0-16.0) G/DL Carboxyhemoglobin (0-4) % O2 Delivery Device Vent Setting Inspired O2 % Critical Value POC Sodium (137-144) mmol/L Sodium (136-145) meq/L POC Potassium (3.6-5.0) mmol/L Potassium (3.5-5.1) meq/L POC Chloride (102-111) mmol/L Chloride (98-107) meq/L Carbon Dioxide (21.0-32.0) meq/L Anion Gap (5-15) meq/L POC BUN (5-21) mg/dL BUN (7-18) mg/dL Creatinine (0.50-1.00) mg/dL POC Creatinine (0.6-1.3) mg/dL Estimated GFR (>89) mL/min POC Glucose (68-110) mg/dL Random Glucose (74-106) mg/dL Lactic Acid (0.4-2.0) mmol/L Calcium (8.5-10.1) mg/dL Magnesium (1.5-2.5) mg/dL Total Bilirubin (0.2-1.0) mg/dL AST (15-37) U/L ALT (10-53) U/L Alkaline Phosphatase (45-117) U/L Ammonia (11-32) mcmol/L Total Creatine Kinase (26-192) U/L CK-MB (CK-2) (0.5-3.6) ng/mL CK-MB (CK-2) % (0.0-4.0) % Troponin I (0.02-0.05) ng/mL B-Natriuretic Peptide 70 (0-100) pg/mL Total Protein (6.4-8.2) g/dL Albumin (3.4-5.0) g/dL TSH (0.358-3.740) uIU/mL Free T4 (0.76-1.46) ng/dL Cortisol mcg/dL Urine Color (Yellw/Straw) Urine Clarity (Clear) Urine pH (5.0-8.5) Ur Specific Vivian (1.002-1.035) Urine Protein (Neg-Trace) mg/dL Urine Glucose (UA) (Negative) mg/dL Urine Ketones (Negative) mg/dL Urine Occult Blood (Negative) Urine Nitrate (Negative) Urine Bilirubin (Negative) Urine Urobilinogen (Less than 2) mg/dL Ur Leukocyte Esterase (Negative) Urine RBC (0-3) /hpf Urine WBC (0-5) /hpf Ur Squamous Epith Cells (0-5) /hpf Urine Bacteria (None) /hpf Hyaline Casts (0-3) /lpf Urine Mucus (Occasional) /lpf Micro UA Comment Urine Culture Comments Nasal Screen MRSA (PCR) (Negative) Urine Opiates Screen (Neg) Ur Barbiturates Screen (Neg) Ur Amphetamines Screen (Neg) U Benzodiazepines Scrn (Neg) Urine Cocaine Screen (Neg) U Cannabinoids Screen (Neg) Serum Alcohol (0-5) mg/dL Blood Type B Positive Antibody Screen Negative MTS Gel Crossmatch See Detail Blood Bank Comment 07/15/18 07/15/18 07/15/18 Range/Units 21:50 22:30 22:31 WBC (4.0-11.0) th/mm3 RBC (4.00-5.30) mil/mm3 Hgb (11.6-15.3) gm/dL POC Hgb (Calc) (11.6-15.3) g/dL Hct (35.0-46.0) % POC Hct (35-46.0) % MCV (80.0-100.0) fL MCH (27.0-34.0) pg MCHC (32.0-36.0) % RDW (11.6-17.2) % Plt Count (150-450) th/mm3 MPV (7.0-11.0) fL Prelim Diff (Auto) WBC Differential Seg Neuts % (Manual) (16-70) % Band Neuts % (Manual) (0-6) % Lymphocytes % (Manual) (9-44) % Monocytes % (Manual) (0-8) % Metamyelocytes % (Man) (0-1) % Myelocytes % (Man) (0-0) % Promyelocytes % (Man) (0-0) % Blast Cells % (Manual) (0-0) % Abs Neuts (Manual) (1.8-7.7) th/mm3 Nucleated RBCs/100 WBC (0-0) /100 WBC Differential Comment Toxic Granulation (None) Platelet Estimate (Normal) Platelet Morphology (Normal) Polychromasia (0.0-1.9) % Ovalocytes (None) Zambrano[place] Bodies (None) Acanthocytes (Spur) (None) Keratocytes (None) PT (9.8-11.6) sec INR Ratio APTT (24.3-30.1) sec Fibrinogen (227-377) mg/dL Puncture Site Patient Temperature O2 Saturation (90-100) % ABG pH (7.380-7.420) ABG pCO2 (38-42) mmHg ABG pO2 (61-120) mmHg ABG HCO3 (22-26) mmol/L ABG O2 Content (12.0-20.0) Vol % ABG Base Excess (-2-2) mmol/L ABG Methemoglobin (0-2) % Darci Test Hemoglobin (12.0-16.0) G/DL Carboxyhemoglobin (0-4) % O2 Delivery Device Vent Setting Inspired O2 % Critical Value POC Sodium (137-144) mmol/L Sodium (136-145) meq/L POC Potassium (3.6-5.0) mmol/L Potassium (3.5-5.1) meq/L POC Chloride (102-111) mmol/L Chloride (98-107) meq/L Carbon Dioxide (21.0-32.0) meq/L Anion Gap (5-15) meq/L POC BUN (5-21) mg/dL BUN (7-18) mg/dL Creatinine (0.50-1.00) mg/dL POC Creatinine (0.6-1.3) mg/dL Estimated GFR (>89) mL/min POC Glucose (68-110) mg/dL Random Glucose (74-106) mg/dL Lactic Acid (0.4-2.0) mmol/L Calcium (8.5-10.1) mg/dL Magnesium (1.5-2.5) mg/dL Total Bilirubin (0.2-1.0) mg/dL AST (15-37) U/L ALT (10-53) U/L Alkaline Phosphatase (45-117) U/L Ammonia (11-32) mcmol/L Total Creatine Kinase (26-192) U/L CK-MB (CK-2) (0.5-3.6) ng/mL CK-MB (CK-2) % (0.0-4.0) % Troponin I (0.02-0.05) ng/mL B-Natriuretic Peptide (0-100) pg/mL Total Protein (6.4-8.2) g/dL Albumin (3.4-5.0) g/dL TSH (0.358-3.740) uIU/mL Free T4 (0.76-1.46) ng/dL Cortisol mcg/dL Urine Color (Yellw/Straw) Urine Clarity (Clear) Urine pH (5.0-8.5) Ur Specific Vivian (1.002-1.035) Urine Protein (Neg-Trace) mg/dL Urine Glucose (UA) (Negative) mg/dL Urine Ketones (Negative) mg/dL Urine Occult Blood (Negative) Urine Nitrate (Negative) Urine Bilirubin (Negative) Urine Urobilinogen (Less than 2) mg/dL Ur Leukocyte Esterase (Negative) Urine RBC (0-3) /hpf Urine WBC (0-5) /hpf Ur Squamous Epith Cells (0-5) /hpf Urine Bacteria (None) /hpf Hyaline Casts (0-3) /lpf Urine Mucus (Occasional) /lpf Micro UA Comment Urine Culture Comments Nasal Screen MRSA (PCR) Not detected (Negative) Urine Opiates Screen (Neg) Ur Barbiturates Screen (Neg) Ur Amphetamines Screen (Neg) U Benzodiazepines Scrn (Neg) Urine Cocaine Screen (Neg) U Cannabinoids Screen (Neg) Serum Alcohol (0-5) mg/dL Blood Type Cancelled Antibody Screen MTS Gel Crossmatch See Detail Blood Bank Comment 07/15/18 07/15/18 07/15/18 Range/Units 23:10 23:13 23:20 WBC (4.0-11.0) th/mm3 RBC (4.00-5.30) mil/mm3 Hgb (11.6-15.3) gm/dL POC Hgb (Calc) (11.6-15.3) g/dL Hct (35.0-46.0) % POC Hct (35-46.0) % MCV (80.0-100.0) fL MCH (27.0-34.0) pg MCHC (32.0-36.0) % RDW (11.6-17.2) % Plt Count (150-450) th/mm3 MPV (7.0-11.0) fL Prelim Diff (Auto) WBC Differential Seg Neuts % (Manual) (16-70) % Band Neuts % (Manual) (0-6) % Lymphocytes % (Manual) (9-44) % Monocytes % (Manual) (0-8) % Metamyelocytes % (Man) (0-1) % Myelocytes % (Man) (0-0) % Promyelocytes % (Man) (0-0) % Blast Cells % (Manual) (0-0) % Abs Neuts (Manual) (1.8-7.7) th/mm3 Nucleated RBCs/100 WBC (0-0) /100 WBC Differential Comment Toxic Granulation (None) Platelet Estimate (Normal) Platelet Morphology (Normal) Polychromasia (0.0-1.9) % Ovalocytes (None) Zambrano-[place] Bodies (None) Acanthocytes (Spur) (None) Keratocytes (None) PT (9.8-11.6) sec INR Ratio APTT (24.3-30.1) sec Fibrinogen (227-377) mg/dL Puncture Site Art line Patient Temperature 98.6 O2 Saturation 96 (90-100) % ABG pH 7.12 L* (7.380-7.420) ABG pCO2 29 L (38-42) mmHg ABG pO2 127 H (61-120) mmHg ABG HCO3 9 L* (22-26) mmol/L ABG O2 Content 9.4 L (12.0-20.0) Vol % ABG Base Excess -18.5 L (-2-2) mmol/L ABG Methemoglobin 1.8 (0-2) % Darci Test Hemoglobin 6.8 L* (12.0-16.0) G/DL Carboxyhemoglobin 0.5 (0-4) % O2 Delivery Device Vent Vent Setting See comments Inspired O2 100 % Critical Value Yes POC Sodium (137-144) mmol/L Sodium (136-145) meq/L POC Potassium (3.6-5.0) mmol/L Potassium (3.5-5.1) meq/L POC Chloride (102-111) mmol/L Chloride (98-107) meq/L Carbon Dioxide (21.0-32.0) meq/L Anion Gap (5-15) meq/L POC BUN (5-21) mg/dL BUN (7-18) mg/dL Creatinine (0.50-1.00) mg/dL POC Creatinine (0.6-1.3) mg/dL Estimated GFR (>89) mL/min POC Glucose (68-110) mg/dL Random Glucose (74-106) mg/dL Lactic Acid (0.4-2.0) mmol/L Calcium (8.5-10.1) mg/dL Magnesium (1.5-2.5) mg/dL Total Bilirubin (0.2-1.0) mg/dL AST (15-37) U/L ALT (10-53) U/L Alkaline Phosphatase (45-117) U/L Ammonia (11-32) mcmol/L Total Creatine Kinase (26-192) U/L CK-MB (CK-2) (0.5-3.6) ng/mL CK-MB (CK-2) % (0.0-4.0) % Troponin I (0.02-0.05) ng/mL B-Natriuretic Peptide (0-100) pg/mL Total Protein (6.4-8.2) g/dL Albumin (3.4-5.0) g/dL TSH (0.358-3.740) uIU/mL Free T4 (0.76-1.46) ng/dL Cortisol 114.9 mcg/dL Urine Color (Yellw/Straw) Urine Clarity (Clear) Urine pH (5.0-8.5) Ur Specific Vivian (1.002-1.035) Urine Protein (Neg-Trace) mg/dL Urine Glucose (UA) (Negative) mg/dL Urine Ketones (Negative) mg/dL Urine Occult Blood (Negative) Urine Nitrate (Negative) Urine Bilirubin (Negative) Urine Urobilinogen (Less than 2) mg/dL Ur Leukocyte Esterase (Negative) Urine RBC (0-3) /hpf Urine WBC (0-5) /hpf Ur Squamous Epith Cells (0-5) /hpf Urine Bacteria (None) /hpf Hyaline Casts (0-3) /lpf Urine Mucus (Occasional) /lpf Micro UA Comment Urine Culture Comments Nasal Screen MRSA (PCR) (Negative) Urine Opiates Screen (Neg) Ur Barbiturates Screen (Neg) Ur Amphetamines Screen (Neg) U Benzodiazepines Scrn (Neg) Urine Cocaine Screen (Neg) U Cannabinoids Screen (Neg) Serum Alcohol (0-5) mg/dL Blood Type Antibody Screen MTS Gel Crossmatch Blood Bank Comment 07/15/18 07/15/18 07/16/18 Range/Units 23:20 23:44 00:27 WBC (4.0-11.0) th/mm3 RBC (4.00-5.30) mil/mm3 Hgb (11.6-15.3) gm/dL POC Hgb (Calc) (11.6-15.3) g/dL Hct (35.0-46.0) % POC Hct (35-46.0) % MCV (80.0-100.0) fL MCH (27.0-34.0) pg MCHC (32.0-36.0) % RDW (11.6-17.2) % Plt Count (150-450) th/mm3 MPV (7.0-11.0) fL Prelim Diff (Auto) WBC Differential Seg Neuts % (Manual) (16-70) % Band Neuts % (Manual) (0-6) % Lymphocytes % (Manual) (9-44) % Monocytes % (Manual) (0-8) % Metamyelocytes % (Man) (0-1) % Myelocytes % (Man) (0-0) % Promyelocytes % (Man) (0-0) % Blast Cells % (Manual) (0-0) % Abs Neuts (Manual) (1.8-7.7) th/mm3 Nucleated RBCs/100 WBC (0-0) /100 WBC Differential Comment Toxic Granulation (None) Platelet Estimate (Normal) Platelet Morphology (Normal) Polychromasia (0.0-1.9) % Ovalocytes (None) Zambrano-[place] Bodies (None) Acanthocytes (Spur) (None) Keratocytes (None) PT (9.8-11.6) sec INR Ratio APTT (24.3-30.1) sec Fibrinogen (227-377) mg/dL Puncture Site Patient Temperature O2 Saturation (90-100) % ABG pH (7.380-7.420) ABG pCO2 (38-42) mmHg ABG pO2 (61-120) mmHg ABG HCO3 (22-26) mmol/L ABG O2 Content (12.0-20.0) Vol % ABG Base Excess (-2-2) mmol/L ABG Methemoglobin (0-2) % Darci Test Hemoglobin (12.0-16.0) G/DL Carboxyhemoglobin (0-4) % O2 Delivery Device Vent Setting Inspired O2 % Critical Value POC Sodium (137-144) mmol/L Sodium (136-145) meq/L POC Potassium (3.6-5.0) mmol/L Potassium (3.5-5.1) meq/L POC Chloride (102-111) mmol/L Chloride (98-107) meq/L Carbon Dioxide (21.0-32.0) meq/L Anion Gap (5-15) meq/L POC BUN (5-21) mg/dL BUN (7-18) mg/dL Creatinine (0.50-1.00) mg/dL POC Creatinine (0.6-1.3) mg/dL Estimated GFR (>89) mL/min POC Glucose 162 H (68-110) mg/dL Random Glucose 187 H (74-106) mg/dL Lactic Acid 19.9 H* (0.4-2.0) mmol/L Calcium (8.5-10.1) mg/dL Magnesium (1.5-2.5) mg/dL Total Bilirubin (0.2-1.0) mg/dL AST (15-37) U/L ALT (10-53) U/L Alkaline Phosphatase (45-117) U/L Ammonia (11-32) mcmol/L Total Creatine Kinase (26-192) U/L CK-MB (CK-2) (0.5-3.6) ng/mL CK-MB (CK-2) % (0.0-4.0) % Troponin I (0.02-0.05) ng/mL B-Natriuretic Peptide (0-100) pg/mL Total Protein (6.4-8.2) g/dL Albumin (3.4-5.0) g/dL TSH (0.358-3.740) uIU/mL Free T4 (0.76-1.46) ng/dL Cortisol mcg/dL Urine Color (Yellw/Straw) Urine Clarity (Clear) Urine pH (5.0-8.5) Ur Specific Vivian (1.002-1.035) Urine Protein (Neg-Trace) mg/dL Urine Glucose (UA) (Negative) mg/dL Urine Ketones (Negative) mg/dL Urine Occult Blood (Negative) Urine Nitrate (Negative) Urine Bilirubin (Negative) Urine Urobilinogen (Less than 2) mg/dL Ur Leukocyte Esterase (Negative) Urine RBC (0-3) /hpf Urine WBC (0-5) /hpf Ur Squamous Epith Cells (0-5) /hpf Urine Bacteria (None) /hpf Hyaline Casts (0-3) /lpf Urine Mucus (Occasional) /lpf Micro UA Comment Urine Culture Comments Nasal Screen MRSA (PCR) (Negative) Urine Opiates Screen (Neg) Ur Barbiturates Screen (Neg) Ur Amphetamines Screen (Neg) U Benzodiazepines Scrn (Neg) Urine Cocaine Screen (Neg) U Cannabinoids Screen (Neg) Serum Alcohol (0-5) mg/dL Blood Type Antibody Screen MTS Gel Crossmatch Blood Bank Comment 07/16/18 Range/Units 00:46 WBC (4.0-11.0) th/mm3 RBC (4.00-5.30) mil/mm3 Hgb (11.6-15.3) gm/dL POC Hgb (Calc) (11.6-15.3) g/dL Hct (35.0-46.0) % POC Hct (35-46.0) % MCV (80.0-100.0) fL MCH (27.0-34.0) pg MCHC (32.0-36.0) % RDW (11.6-17.2) % Plt Count (150-450) th/mm3 MPV (7.0-11.0) fL Prelim Diff (Auto) WBC Differential Seg Neuts % (Manual) (16-70) % Band Neuts % (Manual) (0-6) % Lymphocytes % (Manual) (9-44) % Monocytes % (Manual) (0-8) % Metamyelocytes % (Man) (0-1) % Myelocytes % (Man) (0-0) % Promyelocytes % (Man) (0-0) % Blast Cells % (Manual) (0-0) % Abs Neuts (Manual) (1.8-7.7) th/mm3 Nucleated RBCs/100 WBC (0-0) /100 WBC Differential Comment Toxic Granulation (None) Platelet Estimate (Normal) Platelet Morphology (Normal) Polychromasia (0.0-1.9) % Ovalocytes (None) Zambrano-[place] Bodies (None) Acanthocytes (Spur) (None) Keratocytes (None) PT (9.8-11.6) sec INR Ratio APTT (24.3-30.1) sec Fibrinogen (227-377) mg/dL Puncture Site Art line Patient Temperature 98.6 O2 Saturation 86 L* (90-100) % ABG pH 7.13 L* (7.380-7.420) ABG pCO2 30 L (38-42) mmHg ABG pO2 66 (61-120) mmHg ABG HCO3 10 L* (22-26) mmol/L ABG O2 Content 7.1 L (12.0-20.0) Vol % ABG Base Excess -17.7 L (-2-2) mmol/L ABG Methemoglobin 1.8 (0-2) % Darci Test Present Hemoglobin 5.7 L* (12.0-16.0) G/DL Carboxyhemoglobin 0.6 (0-4) % O2 Delivery Device Ventilator Vent Setting Ac 24/500/+5 Inspired O2 100 % Critical Value Yes POC Sodium (137-144) mmol/L Sodium (136-145) meq/L POC Potassium (3.6-5.0) mmol/L Potassium (3.5-5.1) meq/L POC Chloride (102-111) mmol/L Chloride (98-107) meq/L Carbon Dioxide (21.0-32.0) meq/L Anion Gap (5-15) meq/L POC BUN (5-21) mg/dL BUN (7-18) mg/dL Creatinine (0.50-1.00) mg/dL POC Creatinine (0.6-1.3) mg/dL Estimated GFR (>89) mL/min POC Glucose (68-110) mg/dL Random Glucose (74-106) mg/dL Lactic Acid (0.4-2.0) mmol/L Calcium (8.5-10.1) mg/dL Magnesium (1.5-2.5) mg/dL Total Bilirubin (0.2-1.0) mg/dL AST (15-37) U/L ALT (10-53) U/L Alkaline Phosphatase (45-117) U/L Ammonia (11-32) mcmol/L Total Creatine Kinase (26-192) U/L CK-MB (CK-2) (0.5-3.6) ng/mL CK-MB (CK-2) % (0.0-4.0) % Troponin I (0.02-0.05) ng/mL B-Natriuretic Peptide (0-100) pg/mL Total Protein (6.4-8.2) g/dL Albumin (3.4-5.0) g/dL TSH (0.358-3.740) uIU/mL Free T4 (0.76-1.46) ng/dL Cortisol mcg/dL Urine Color (Yellw/Straw) Urine Clarity (Clear) Urine pH (5.0-8.5) Ur Specific Vivian (1.002-1.035) Urine Protein (Neg-Trace) mg/dL Urine Glucose (UA) (Negative) mg/dL Urine Ketones (Negative) mg/dL Urine Occult Blood (Negative) Urine Nitrate (Negative) Urine Bilirubin (Negative) Urine Urobilinogen (Less than 2) mg/dL Ur Leukocyte Esterase (Negative) Urine RBC (0-3) /hpf Urine WBC (0-5) /hpf Ur Squamous Epith Cells (0-5) /hpf Urine Bacteria (None) /hpf Hyaline Casts (0-3) /lpf Urine Mucus (Occasional) /lpf Micro UA Comment Urine Culture Comments Nasal Screen MRSA (PCR) (Negative) Urine Opiates Screen (Neg) Ur Barbiturates Screen (Neg) Ur Amphetamines Screen (Neg) U Benzodiazepines Scrn (Neg) Urine Cocaine Screen (Neg) U Cannabinoids Screen (Neg) Serum Alcohol (0-5) mg/dL Blood Type Antibody Screen MTS Gel Crossmatch Blood Bank Comment Imaging Data Radiologist's impression: Chest X-Ray 07/15/18 20:48 CONCLUSION: ET tube in the upper thoracic level. Bibasilar medial lung consolidation. Head CT 07/15/18 20:48 CONCLUSION: 1. No acute findings in the brain. 2. Opacification of right maxillary and bilateral ethmoids. . ECG Data Attestation: I personally reviewed and interpreted this ECG as follows: Interpretation: The patient had an initial EKG done on arrival that showed atrial fibrillation with a slow ventricular response, aberrant conduction or ventricular premature complexes, heart rate of 52, QRS duration 134 ms, QTC 533 ms. The patient was given amiodarone 150 mg IV. After calcium chloride, amiodarone, bicarbonate administration, repeat EKG reveals a sinus bradycardia heart rate of 40, QRS duration 144 ms, QTC 567 ms. There is an intraventricular conduction delay noted, marked left axis deviation noted. Discharge Plan Discharge Disposition Patient Disposition: 30 Still Patient Discharge Condition Condition: Critical Discharge Details Diagnosis: Acute renal failure, Hypoglycemia, Acute hyperkalemia, Bradycardia, Hypothermia Date/Time: 07/16/18 04:25 Physicians Team ED Provider: Shanda Sales Primary Care Provider: Reg Fenton Attending Provider: Mars Tay Other Providers: Gregory Owen Status ED Status: Left Department Discharge Information Discharge Date/Time: 07/16/18 01:00
[2018-07-15 21:13] LABS: ABG Base Excess -19.4 mmol/L (-2-2); ABG PCO2 33 mmHg (38-42); ABG PO2 39 mmHg (61-120)
[2018-07-15 21:16] LABS: ABG Base Excess -13.9 mmol/L (-2-2); ABG PCO2 38 mmHg (38-42); ABG PO2 35 mmHg (61-120)
[2018-07-15 22:06] LABS: Mean Corpuscular HGB Conc 31.3 % (32.0-36.0); Mean Corpuscular Volume 105.3 fL (80.0-100.0); Mean Platelet Volume 9.8 fL (7.0-11.0); Platelet Count 42 th/mm3 (150-450); Red Cell Distribution Width 19.8 % (11.6-17.2); White Blood Count 16.4 th/mm3 (4.0-11.0)
--- NOTE | 2018-07-15 22:19 | CT ---
EXAM DATE: 07/15/2018 10:11 PM EDT AGE/SEX: 67 years / Female INDICATIONS: Altered mental status. CLINICAL DATA: This is the patient's initial encounter. Patient reports that signs and symptoms have been present for 1 day and indicates a pain score of Nonresponsive. MEDICAL/SURGICAL HISTORY: Cirrhosis. None. RADIATION DOSE: 36.54 CTDI (mGy) COMPARISON: No prior exams available for comparison. TECHNIQUE: CT of the head without contrast. Using automated exposure control and adjustment of the mA and/or kV according to patient size, radiation dose was kept as low as reasonably achievable to ob tain optimal diagnostic quality images. DICOM format image data is available electronically for revi ew and comparison. FINDINGS: Cerebrum: The ventricles are normal for age. No evidence of midline shift, mass lesion, hemorrhage or acute infarction. No extraaxial fluid collections are seen. Posterior Fossa: The cerebellum and brainstem are intact. The 4th ventricle is midline. The cerebe llopontine angle is unremarkable. Extracranial: The visualized portion of the orbits is intact. Opacified right maxillary sinus and mu ltiple opacified ethmoid air cells. Skull: The calvaria is intact. No evidence of skull fracture. CONCLUSION: 1. No acute findings in the brain. 2. Opacification of right maxillary and bilateral ethmoids. . Electronically signed by: Avni Aceves MD 07/15/2018 10:18 PM EDT
[2018-07-15] MEDS ORDERED: Dextrose 50% in Water 50 ML Vial IV.PUSH PRN (22:20)
--- NOTE | 2018-07-15 22:20 | XR ---
EXAM DATE: 07/15/2018 9:57 PM EDT AGE/SEX: 67 years / Female INDICATIONS: Post intubation. CLINICAL DATA: This is the patient's initial encounter. Patient reports that signs and symptoms have been present for 1 day and indicates a pain score of Nonresponsive. MEDICAL/SURGICAL HISTORY: . Cirrhosis. None. COMPARISON: [facility] [place], CHEST 1V SINGLE AP, 07/08/2018. . FINDINGS: Endotracheal tube tip is well above the jennifer, located approximately the T1 or T2 level. There is co nsolidation in the medial lower lungs bilaterally with loss of delineation of a portion of the left h emidiaphragm. The upper lungs are clear. The heart is normal in size. CONCLUSION: ET tube in the upper thoracic level. Bibasilar medial lung consolidation. Electronically signed by: Avni Aceves MD 07/15/2018 10:19 PM EDT
[2018-07-15 22:21] LABS: Hematocrit 14.8 % (35.0-46.0); Hemoglobin 4.6 gm/dL (11.6-15.3)
[2018-07-15 22:21] LABS: Amphetamine Screen,Urine Neg (Neg); Barbiturate Screen,Urine Neg (Neg); Cannabinoid Screen,Urine Neg (Neg); Cocaine Screen,Urine Neg (Neg)
[2018-07-15] MEDS ORDERED: Vancomycin Consult Pharmacy OTHER PRN (22:23)
[2018-07-15] MEDS ORDERED: Anti-Inhibitor Coagulant Complex Inj 500 UNITS Vial IV.PUSH ONE (22:24)
[2018-07-15 22:25] LABS: Opiate Screen,Urine Pos (Neg)
[2018-07-15 22:26] LABS: Bacteria,Urine Rare /hpf; Bilirubin,Urine Negative (Negative); Clarity,Urine Cloudy (Clear); Color,Urine Amber (Yellw/Straw); Glucose,Urine (UA) 50 mg/dL (Negative); Hyaline Casts,Urine 42 /lpf (0-3); Leukocyte Esterase,Urine Trace (Negative); Mucus,Urine Few /lpf (Occasional); Nitrite,Urine Negative (Negative); Specific Gravity,Urine 1.023 (1.002-1.035); Squamous Epithelial Cell,Urine 21 /hpf (0-5)
[2018-07-15 22:32] LABS: Albumin 0.7 g/dL (3.4-5.0); Anion Gap 25 meq/L (5-15); Aspartate Aminotransferase 760 U/L (15-37); Blood Urea Nitrogen 90 mg/dL (7-18); Carbon Dioxide 11.8 meq/L (21.0-32.0); Chloride 90 meq/L (98-107); Glomerular Filtration Rate 9 mL/min (>89); Glucose,Random 211 mg/dL (74-106); Magnesium 2.5 mg/dL (1.5-2.5); Potassium 6.3 meq/L (3.5-5.1); Sodium 127 meq/L (136-145)
[2018-07-15 22:34] LABS: Alanine Aminotransferase 120 U/L (10-53)
--- NOTE | 2018-07-15 22:36 | P.HPCC ---
History of Present Illness Primary Care Physician: Reg Fenton MD Chief Complaint: Altered mental status, bradycardia, shock History of Present Illness: Patient is a 67-year-old female with past medical history significant for liver cirrhosis secondary to alcohol dependence, who was recently admitted to the [facility] for left hip fracture from 07/08/2018 to 07/12/18. At that time she underwent surgical repair by Ortho, was treated for Klebsiella on lactobacillus UTI, and was placed on Xarelto for DVT prophylaxis. After discharge patient was in a rehab facility. Patient was brought to the [place] emergency department today from rehab for decreased level of consciousness, apparently her only response was moaning. Patient was profoundly hypotensive bradycardic and hypothermic in the emergency department. EKG prior to arrival to the ED showed wide QRS with bradycardia suspicious for hyperkalemia. i-STAT was ordered which showed potassium of 7.5 creatinine 5.5 and sodium 112. Patient was given 2 L normal saline bolus for hypotension, hyperkalemia was treated with 1 g of calcium chloride, 1 amp of bicarb however IV insulin was not given as the blood sugar was in the 40s. An amp of D50 was administered. I-STAT hemoglobin was 6 2 units of emergency release blood was ordered. For persistent bradycardia patient was also given atropine. Intubated in the ED for airway protection. Patient was started on Levophed to maintain blood pressure. I was called to the ED by Dr. Sales to assist in management. On my arrival patient remained profoundly hypotensive, bradycardic. I ordered a second round of 1 g of calcium and 2 more amps of bicarb. Because of profound hypotension and bradycardia I ordered 1 ampule of epinephrine to be pushed 1 stat followed by a dopamine infusion to maintain heart rate above 50. Patient was profusely bleeding from mouth and nose. This is presumed to be secondary to DIC however as the patient was also on Xarelto I have ordered Feiba 4000 units, FFP a total of 4 units, platelets 2 packed units. The patient's initial temperature was 91, bear hugger was placed. Recently treated for UTI, I will cover for resistant organisms with meropenem and vancomycin. For GI bleed patient treated with IV Protonix bolus 80 mg and 8 mg/h infusion. VBG postintubation pH of 7.057, PCO2 of 32.9, bicarb 8.8, hemoglobin 4.2 on ABG. Labs were reviewed when available. Chemistry came back with sodium 127 after 2L NS bolus, potassium is down to 6.3, bicarb 12, BUN 90 creatinine 4.74. WBC count was 16.4, hemoglobin 4.6 and platelet count of 42, 000. Her lactic acid was 18.1 UA showed evidence of UTI. INR came back more than 20.9, PTT >277.7. Fibrinogen less than 50. 3 units of cryoprecipitate ordered, along with additional 2 units of PRBC. Patient is very critically ill with multiorgan failure and prognosis is grave - Diagnosis (1) Acute metabolic encephalopathy (2) Metabolic acidosis (3) Acute hypoxemic respiratory failure (4) Acute renal failure (5) Hypoglycemia (6) Acute hyperkalemia (7) Bradycardia (8) Hypothermia (9) Septic shock (10) Anemia requiring transfusions (11) GIB (gastrointestinal bleeding) (12) Coagulopathy (13) Hyponatremia (14) Thrombocytopenia Inpatient Certification: I certify that the inpatient services were ordered in accordance with Medicare regulations governing the order. 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 - Medical / Surgical Hx Neg / Unobtainable Medical Problems Denied: Unable to Obtain Surgical History: Unable to Obtain - Medical History Medical History: Medical History (Last Reviewed 07/16/18 @ 00:14 by Mars Tay MD) Anxiety Cirrhosis Hx of hysterectomy Osteopenia - Surgical History Surgical History: Surgical History (Last Reviewed 07/16/18 @ 00:14 by Mars Tay MD) History of hip surgery - Family History Family History: Family History (Last Reviewed 07/11/18 @ 08:52 by Melanie Dalal) Father CVA (cerebral vascular accident) - Tobacco History Second Hand Smoke Exposure: No Smoking Status: Former smoker Tobacco Type: Cigarettes - Alcohol History How Often Do You Have a Drink Containing Alcohol: Unable to Obtain - Substance Use History Substance History: Past History - Travel History Recent Travel in the [place] Within the Last 8 Weeks: No Recent Travel Out of the Country Within the Last 8 Weeks: No - Immunization History Tetanus Immunization: Unsure Medications and Allergies Active Medications: Active Medications Anti-Inhibitor Coagulant Complex (Feiba Inj) 4,000 units IV.PUSH ONCE ONE Stop: 07/15/18 22:25 Atropine Sulfate (Atropine Inj) 0.5 mg IV.PUSH Q5M PRN PRN Reason: HEART RATE <60 Chlorhexidine Gluconate (Chlorhexidine 2% Cloth) 3 pack TOPICAL DAILY@0400 LUCIE Stop: 07/21/18 03:59 Chlorhexidine Gluconate (Chlorhexidine 2% Cloth) 3 pack TOPICAL DAILY@0400 PRN PRN Reason: Extra cloth needed Stop: 07/21/18 03:59 Dextrose (D50w Vial) 50 ml IV.PUSH UNSCH PRN PRN Reason: PER HYPOGLYCEMIA PROTOCOL Glucagon (Glucagon Inj) 1 mg OTHER PRN PRN PRN Reason: for Hypoglycemia Protocol Dopamine HCl/Dextrose (Dopamine 800 Mg/500 Ml Premix) 800 mg in 500 mls @ 7.875 mls/hr IV.CONT TITRATE PRN; Protocol PRN Reason: Per Protocol Norepinephrine Bitartrate (Levophed-Dextrose 4 Mg/250 Ml Drip) 4 mg in 250 mls @ 7.5 mls/hr IV.SIG TITRATE PRN; Protocol PRN Reason: Per Protocol Sodium Bicarbonate 150 meq/ (Dextrose) 1,000 mls @ 125 mls/hr IV.CONT .Q8H LUCIE Meropenem 500 mg/ Sodium (Chloride) 100 mls @ 200 mls/hr IV.SIG Q8H LUCIE Vancomycin HCl 1,000 mg/ (Sodium Chloride) 250 mls @ 250 mls/hr IV.SIG ONCE ONE Stop: 07/15/18 23:59 Pharmacy Profile Note (Vancomycin Consult Pharmacy) 1 each OTHER UNSCH PRN PRN Reason: Pharmacy to dose Sodium Chloride (Ns Flush) 2 ml IV.FLUSH BID LUCIE Sodium Chloride (Ns Flush) 2 ml IV.FLUSH PRN PRN PRN Reason: FLUSH AFTER USING IV ACCESS Terbutaline Sulfate (Brethine Inj) 1 mg SQ ONCE PRN PRN Reason: Extravasation Terbutaline Sulfate (Brethine Inj) 1 mg SQ UNSCH PRN PRN Reason: For Extravasation Allergies Allergy/AdvReac Type Severity Reaction Status Date / Time zolpidem Allergy Severe Dizziness Verified 07/15/18 20:29 Home Medications Medication Instructions Recorded Confirmed Type citalopram 20 mg PO DAILY 07/08/18 07/15/18 History esomeprazole magnesium [Nexium] 20 mg PO DAILY 07/08/18 07/15/18 History furosemide [Lasix] 40 mg PO DAILY 07/08/18 07/15/18 History propranolol 10 mg PO DAILY 07/08/18 07/15/18 History spironolactone 50 mg PO BID 07/08/18 07/15/18 History rpsfip-toxrktps-wformat [Creon] 1 cap PO TID 07/15/18 07/15/18 History Results - Labs CBC & Chem 7: 07/15/18 21:29 07/15/18 23:20 Labs: Short CBC 07/15/18 Range/Units 21:29 WBC 16.4 H (4.0-11.0) th/mm3 Hgb 4.6 L* (11.6-15.3) gm/dL Hct 14.8 L* (35.0-46.0) % Plt Count 42 L D (150-450) th/mm3 Urine 07/15/18 Range/Units 21:20 Urine Color Arabella (Yellw/Straw) Urine Clarity Cloudy H (Clear) Urine pH 5.0 (5.0-8.5) Ur Specific Springer 1.023 (1.002-1.035) Urine Protein Negative (Neg-Trace) mg/dL Urine Glucose (UA) 50 (Negative) mg/dL - Imaging Impressions Chest X-Ray 07/15/18 20:48 CONCLUSION: ET tube in the upper thoracic level. Bibasilar medial lung consolidation. Head CT 07/15/18 20:48 CONCLUSION: 1. No acute findings in the brain. 2. Opacification of right maxillary and bilateral ethmoids. . Exam Vital signs: Vital Signs 07/15/18 20:12 07/15/18 20:26 07/15/18 22:29 Temperature 97.2 F L Pulse Rate 50 L Respiratory Rate 9 L 24 Blood Pressure 90/40 L 97/58 L Pulse Oximetry 93 L Intake & Output 07/15/18 07/15/18 07/16/18 06:59 18:59 06:59 Intake Total 0 / 0 Balance 0 / 0 Weight 70 kg Intake: Intake (Blood Product) Amt 0 / 0 Plasma Thawed 5 Day Acda Unit 0 / 0 [id number] Narrative: General: Very critical 67-year-old female who appears acutely ill, agonal breaths on the vent, profusely bleeding from mild HEENT: Normocephalic atraumatic. Pupils are equal round. Right scleral hematoma. Profusely bleeding from nose and mouth. Orotracheally intubated Neck: No nuchal rigidity. No thyromegaly. Cardiovascular: Bradycardic with heart rate in the 40s, profoundly hypotensive. Cool mottled poorly perfused extremities. Lungs: Equal breath sounds bilaterally. No wheezes, rhonchi, or rales. Abdomen: Soft,distended. No guarding, or rigidity. Mid ascites on US Extremities: 1+ pitting edema bilateral lower extremities. Left thigh incision clean, dry, and intact. Neurologic Exam: Patient is unresponsive on the vent currently on no sedation. Agonal breaths. Pupils as above. Very slight withdrawal to painful stimuli 4. Septic Shock Reassessment Septic shock perfusion: reassessment completed Caprini VTE Risk Assessment Caprini VTE Risk Assessment: Moderate/High Risk (score >= 2) Caprini Risk Assessment Model: Point Value = 1 Point Value = 2 Point Value = 3 Point Value = 5 Age 41-60 Minor surgery BMI > 25 kg/m2 Swollen legs Varicose veins or History of unexplained or recurrent spontaneous Oral contraceptives or hormone replacement Sepsis (< 1 month) Serious lung disease, including pneumonia (< 1 month) Abnormal pulmonary function Acute myocardial infarction Congestive heart failure (< 1 month) History of inflammatory bowel disease Medical patient at bed rest Age 61-74 Arthroscopic surgery Major open surgery (> 45 min) Laparoscopic surgery (> 45 min) Malignancy Confined to bed (> 72 hours) Immobilizing plaster cast Central venous access Age >= 75 History of VTE Family history of VTE Factor V Leiden Prothrombin [id number] Lupus anticoagulant Anticardiolipin antibodies Elevated serum homocysteine Heparin-induced thrombocytopenia Other congenital or acquired thrombophilia Stroke (< 1 month) Elective arthroplasty Hip, pelvis, or leg fracture Acute spinal cord injury (< 1 month) Prophylaxis Regimen: Total Risk Factor Score Risk Level Prophylaxis Regimen 0-1 Low Early ambulation 2 Moderate Order ONE of the following: *Sequential Compression Device (SCD) *Heparin 5000 units SQ BID 3-4 Higher Order ONE of the following medications: *Heparin 5000 units SQ TID *Enoxaparin/Lovenox 40 mg SQ daily (WT < 150 kg, CrCl > 30 mL/min) *Enoxaparin/Lovenox 30 mg SQ daily (WT < 150 kg, CrCl > 10-29 mL/min) *Enoxaparin/Lovenox 30 mg SQ BID (WT < 150 kg, CrCl > 30 mL/min) AND/OR *Sequential Compression Device (SCD) 5 or more Highest Order ONE of the following medications: *Heparin 5000 units SQ TID (Preferred with Epidurals) *Enoxaparin/Lovenox 40 mg SQ daily (WT < 150 kg, CrCl > 30 mL/min) *Enoxaparin/Lovenox 30 mg SQ daily (WT < 150 kg, CrCl > 10-29 mL/min) *Enoxaparin/Lovenox 30 mg SQ BID (WT < 150 kg, CrCl > 30 mL/min) AND *Sequential Compression Device (SCD) Assessment and Plan - Problem List (1) Acute metabolic encephalopathy Code(s): G93.41 - Metabolic encephalopathy Status: Acute (2) Metabolic acidosis Code(s): E87.2 - Acidosis Status: Acute (3) Acute hypoxemic respiratory failure Code(s): J96.01 - Acute respiratory failure with hypoxia Status: Acute (4) Acute renal failure Code(s): N17.9 - Acute kidney failure, unspecified Status: Acute (5) Hypoglycemia Code(s): E16.2 - Hypoglycemia, unspecified Status: Acute (6) Acute hyperkalemia Code(s): E87.5 - Hyperkalemia Status: Acute (7) Bradycardia Code(s): R00.1 - Bradycardia, unspecified Status: Acute (8) Hypothermia Code(s): T68.XXXA - Hypothermia, initial encounter Status: Acute (9) Septic shock Code(s): A41.9 - Sepsis, unspecified organism; R65.21 - Severe sepsis with septic shock Status: Acute (10) Anemia requiring transfusions Code(s): D64.9 - Anemia, unspecified Status: Acute (11) GIB (gastrointestinal bleeding) Code(s): K92.2 - Gastrointestinal hemorrhage, unspecified Status: Acute (12) Coagulopathy Code(s): D68.9 - Coagulation defect, unspecified Status: Acute (13) Hyponatremia Code(s): E87.1 - Hypo-osmolality and hyponatremia Status: Acute (14) Thrombocytopenia Code(s): D69.6 - Thrombocytopenia, unspecified Status: Acute - Assessment and Plan Plan: NEURO: Toxic metabolic encephalopathy Hyperammonemia -Patient's altered mentation and encephalopathy most likely secondary to severe sepsis and hypoperfusion -Ammonia level is 47, will place on lactulose and Xifaxan -CT of the head is negative for acute findings RESP: Acute hypoxemic hypercarbic respiratory failure Severe metabolic acidosis -PRVC/AC, Ventilator bundle -DuoNeb every 6 hours scheduled and as needed -Sputum culture CV: Shock septic and cardiogenic Severe lactic acidosis Severe bradycardia secondary to hyperkalemia -Normal saline IV 3 L bolus and bicarb infusion at 150 mL/h -See hyperkalemia treatment as below -Dopamine to maintain the heart rate about 50 and maintain map above 65, Levophed to keep maintain map above 65 -Blood and blood product resuscitation as below -Trend lactic acid per septic protocol GI: Ascites Transaminitis Liver cirrhosis -N.p.o., Protonix 80 mg IVP grams per hour -GI consult for upper GI bleed -Continue Xifaxan and lactulose and ammonia -Broad-spectrum antibiotics will provide SBP prophylaxis -CT abdomen pelvis : Acute kidney failure Hyperkalemia with cardiac toxicity -Initially hyperkalemia treated in the ER with calcium, bicarb, transcutaneous pacing -I have given additional bicarb and calcium and started on dopamine GTT -Nephrology consult placed but currently patient is in severe coagulopathy making it impossible to place a Vas-Cath -Monitor renal function closely. Maintain Padilla catheter. Patient is oliguric to anuric ID: Septic shock -Placed on renally dosed meropenem and vancomycin -Source of sepsis is unclear but could be UTI, recently treated for sepsis from UTI with Klebsiella and lactobacillus -Follow-up blood urine and sputum cultures HEME: Severe anemia requiring transfusion Severe coagulopathy with INR greater than 20 Thrombocytopenia Severe DIC -Monitor CBC, coags, Fibrinogen -Transfuse 4 units PRBC, 4 units FFP, 2 units of platelets -Patient was previously on Xarelto, 4000 units of FEIBA ordered 1 (PCC unavailable) -Continue to transfuse blood and blood products as needed ENDO: Hypothermia/hypoglycemia Hyponatremia -Electrolyte replacement per protocol -Sliding scale insulin -Fluid resuscitation as above -Rapid inadvertent correction of hyponatremia is secondary to refractory shock requiring crystalloid resuscitation PROPH: -Bilateral lower extremity SCDs. Continue coagulopathy, chemical DVT prophylaxis is contraindicated. Continue IV Protonix LINES: -Right femoral central line and right radial arterial line placed 07/15/2018 CC time 110 min excluding procedure Patient is extremely critical with the grave prognosis. She has profound septic and hypovolemic shock with multiorgan failure. Despite our maximum effort chance of survival is minimal. I discussed with this with patient's 2 sisters and 2 nieces. According to their wish I have changed CODE STATUS to alternate code intubation only Code Status: ALT CODE Discussed Condition With: Dr. Sales. Also with patient's , patient's 2 sisters, nieces and bedside RN
[2018-07-15 22:43] LABS: Alkaline Phosphatase 56 U/L (45-117); Creatine Kinase 279 U/L (26-192); Total Protein 2.2 g/dL (6.4-8.2); Troponin I 0.23 ng/mL (0.02-0.05)
[2018-07-15 22:55] LABS: CKMB Percent 2.2 % (0.0-4.0); Creatine Kinase MB 6.2 ng/mL (0.5-3.6)
[2018-07-15] MEDS ORDERED: Vancomycin Inj 1,000 MG in Sodium Chlor 0.9% Inj 250 ML IV.SIG ONE (23:00)
[2018-07-15] MEDS ORDERED: Sodium Bicarbonate 8.4% Inj 150 MEQ in Dextrose 5% in Water Inj 850 ML IV.CONT SCH ×2 (23:00)
[2018-07-15 23:01] LABS: Prothrombin Time 206.6 sec (9.8-11.6)
[2018-07-15 23:03] LABS: INR 20.9 Ratio
[2018-07-15] MEDS ORDERED: Albumin Human 25% Inj 100 ML IV.SIG SCH (23:17)
[2018-07-15] MEDS ORDERED: Midazolam 50 MG/50 ML Inj 50 MG/50 ML BAG IV.CONT PRN (23:21)
[2018-07-15 23:23] LABS: Blast Cells 1 % (0-0); Lymphocytes 2 % (9-44); Metamyelocytes 6 % (0-1); Monocytes 6 % (0-8); Myelocytes 1 % (0-0); Promyelocyte 6 % (0-0); Tallied Nucleated RBC 6 (0-0)
[2018-07-15 23:24] LABS: Platelet Morphology Normal (Normal)
[2018-07-15 23:25] LABS: Howell-Jolly Bodies Present
[2018-07-15] MEDS ORDERED: Sodium Polystyrene Sulfonate/Sorbitol Liq 15 GM/60 ML UDC PO ONE (23:25)
[2018-07-15 23:26] LABS: Toxic Granulation 2+
[2018-07-15 23:27] LABS: Acanthocytes Occ; Ovalocytes 1+
[2018-07-15 23:30] LABS: ABG Base Excess -18.5 mmol/L (-2-2); ABG PCO2 29 mmHg (38-42); ABG PO2 127 mmHG (61-120)
--- NOTE | 2018-07-15 23:47 | P.PCN ---
Date of procedure: 07/15/18 Pre-op diagnosis: Refractory shock Post-op diagnosis: same Procedure: US guided right femoral central line Central line checklist completed, timeout completed. I wore a surgical cap, mask with protective eyewear, full gown and sterile gloves throughout the procedure. Right femoral region was prepped using chlorhexidine scrub and draped in sterile fashion. The right femoral vein was identified using the ultrasound. Anesthesia was achieved over the vein using 1% lidocaine. The introducer needle was inserted into the right femoral vein under direct ultrasound visualization. Venous blood was withdrawn. The syringe was removed and a guidewire was advanced into the introducer needle. A small incision was made at the skin surface with a scalpel and the introducer needle was exchanged for a dilator over the guidewire. After appropriate dilation was obtained, the dilator was exchanged over the wire for a triple lumen, 7F, antibiotic coated central venous catheter. The wire was removed and the catheter was sutured in place at 18 cm. A sterile central line dressing was placed over the catheter at the insertion site. The patient tolerated the procedure without any hemodynamic compromise. At time of procedure completion, all ports aspirated and flushed properly. Anesthesia: local Surgeon: Mars Tay Estimated blood loss (mL): 2 Pathology: none sent Condition: critical Disposition: ICU
--- NOTE | 2018-07-15 23:50 | P.PCN ---
Date of procedure: 07/15/18 Pre-op diagnosis: refractory shock Post-op diagnosis: same Procedure: US guided right radial art line Checklist completed, timeout completed. I wore a surgical cap, mask with protective eyewear, and sterile gloves throughout the procedure. Right radial region was prepped using chlorhexidine scrub and draped in sterile fashion. The right radial artery was identified using the ultrasound. The introducer needle was inserted into the right radial artery under direct ultrasound visualization. Arterial blood was withdrawn. A guidewire was advanced into the introducer needle, and the needle was removed. A 16 cm 20-gauge single-lumen arterial catheter was placed over the guidewire and then the guidewire was removed. Good arterial waveform obtained. A sterile central line dressing was placed over the catheter at the insertion site. Anesthesia: regional Surgeon: Mars Tay Estimated blood loss (mL): 1 Pathology: none sent Condition: critical Disposition: ICU
[2018-07-16] MEDS ORDERED: Pantoprazole Inj 80 MG in Sodium Chlor 0.9% Inj 100 ML IV.CONT SCH ×2
[2018-07-16 00:02] LABS: Free T4 (Free Thyroxine) 0.99 ng/dL (0.76-1.46); Thyroid Stimulating Hormone 1.95 uIU/mL (0.358-3.740)
[2018-07-16] MEDS ORDERED: Phenylephrine Inj 40 MG in Sodium Chlor 0.9% Inj 496 ML IV.CONT PRN ×2 (00:17→01:11)
[2018-07-16] MEDS ORDERED: Hydrocortisone Sod Succinate 100 MG Vial IV.PUSH SCH (00:30)
[2018-07-16 01:06] LABS: ABG Base Excess -17.7 mmol/L (-2-2); ABG PCO2 30 mmHg (38-42); ABG PO2 66 mmHG (61-120)
[2018-07-16 01:19] VITALS: O2SAT 96
[2018-07-16] MEDS ORDERED: Chlorhexidine Gluconate 2% 1 Pack (2 Cloths) TOPICAL PRN (04:00)
[2018-07-16] MEDS ORDERED: Chlorhexidine Gluconate 2% 1 Pack (2 Cloths) TOPICAL SCH (04:00)
[2018-07-16 05:12] VITALS: PULSE 85; RESP 18; TEMP 96
[2018-07-16 05:28] VITALS: BP 37/25
--- NOTE | 2018-07-16 05:31 | P.DN ---
Discharge Sum: Prov - Provider Primary care physician: Reg Fenton MD Admitting clinician: Mars Tay Attending physician on admission: Mars Tay Consults: 07/15/18 23:34 Consult to Nephrology Routine Consulting Provider: Gregory Owen Does the patient have a Instructor Nurse who follows them?: No Preferred Nephrology Pharmacology Associate:: [employer]person Physician Reason for Consultation: Renal failure, acidosis Notified:: Service Spoke with:: jacques Date Notified:: 07/16/18 Time Notified:: 00:15 Ordering Provider: LOAN Pronouncing clinician: Mars Tay Discharge Sum: Diag Discharge Sum: Summary - Date and Time Date of admission: 07/15/18 20:49 Date of : 07/16/18 Time of : 04:25 - Summary Details: Patient is a 67-year-old female with past medical history significant for liver cirrhosis secondary to alcohol dependence, who was recently admitted to the [facility] for left hip fracture from 07/08/2018 to 07/12/18. At that time she underwent surgical repair by Ortho, was treated for Klebsiella on lactobacillus UTI, and was placed on Xarelto for DVT prophylaxis. After discharge patient was in a rehab facility. Patient was brought to the [place] emergency department today from rehab for decreased level of consciousness, apparently her only response was moaning. Patient was profoundly hypotensive bradycardic and hypothermic in the emergency department. EKG prior to arrival to the ED showed wide QRS with bradycardia suspicious for hyperkalemia. i-STAT was ordered which showed potassium of 7.5 creatinine 5.5 and sodium 112. Patient was given 2 L normal saline bolus for hypotension, hyperkalemia was treated with 1 g of calcium chloride, 1 amp of bicarb however IV insulin was not given as the blood sugar was in the 40s. An amp of D50 was administered. I -STAT hemoglobin was 6 2 units of emergency release blood was ordered. For persistent bradycardia patient was also given atropine. Intubated in the ED for airway protection. Patient was started on Levophed to maintain blood pressure. I was called to the ED by Dr. Sales to assist in management. On my arrival patient remained profoundly hypotensive, bradycardic. I ordered a second round of 1 g of calcium and 2 more amps of bicarb. Because of profound hypotension and bradycardia I ordered 1 ampule of epinephrine to be pushed 1 stat followed by a dopamine infusion to maintain heart rate above 50. Patient was profusely bleeding from mouth and nose. This is presumed to be secondary to DIC however as the patient was also on Xarelto I have ordered Feiba 4000 units, FFP a total of 4 units, platelets 2 packed units. The patient's initial temperature was 91, bear hugger was placed. Recently treated for UTI, I will cover for resistant organisms with meropenem and vancomycin. For GI bleed patient treated with IV Protonix bolus 80 mg and 8 mg/h infusion. VBG postintubation pH of 7.057, PCO2 of 32.9, bicarb 8.8, hemoglobin 4.2 on ABG. Labs were reviewed when available. Chemistry came back with sodium 127 after 2L NS bolus, potassium is down to 6.3, bicarb 12, BUN 90 creatinine 4.74. WBC count was 16.4, hemoglobin 4.6 and platelet count of 42,000. Her lactic acid was 18.1 UA showed evidence of UTI. INR came back more than 20.9, PTT >277.7. Fibrinogen less than 50. 3 units of cryoprecipitate ordered, along with additional 2 units of PRBC. Patient is very critically ill with multiorgan failure and prognosis is grave Despite maximal supportive therapy with ventilator support, 3 pressors at maximum dose (Levophed, dopamine, Scott-Synephrine), 4 unit PRBC, 4 units FFP, 3 cryoprecipitate and 2 platelets, patient continued to deteriorate lactic acid initially was 18 increased to 20 pressor requirement continued to increase. Family had opted for a DNR status due to extremely poor prognosis. Patient sustained cardiac arrest and at 0425 on 07/16/2018 Final diagnosis 1 refractory septic and hypovolemic shock 2 acute hypoxemic hypercarbic respiratory failure 3 bradycardia arrhythmia 4 acute kidney failure 5 hyperkalemia 6 severe anemia requiring transfusion 7 severe DIC 8 severe metabolic acidosis/lactic acidosis 9 severe thrombocytopenia 10 severe coagulopathy 11 hyperfibrinogenemia 12 hypothermia 13 hypoglycemia 14 hyponatremia 15 history of liver cirrhosis - Additional Data Attending physician: Mars Tay MD Was code activated?: No Autopsy requested?: No
[2018-07-16] MEDS ORDERED: rifAXIMin 550 MG Tablet PO SCH (09:00)
--- NOTE | 2018-07-16 19:26 | ECG ---
Date Performed: 07/15/2018 Time Performed: 20:33:50 PTAGE: 67 years EKG: SINUS BRADYCARDIA MARKED LEFT AXIS DEVIATION INTRAVENTRICULAR CONDUCTION DELAY ABNORMAL ECG PREVIOUS TRACING : 07/09/2018 00.50 Compared to previous tracing, prior ekg showes Sinus rhythm . The patient now shows agonal rhythm. Clinical correlation is recommended DOCTOR: Sung Morales Interpretating Date/Time 07/16/2018 19:25:30
== END 2018-07-16 04:25 | disposition expired ==
LOC: NEPE 20:08 → NEDA 20:49 → HIMC 22:15
PROVIDERS: ADMIT Internal Medicine; ATTEND Internal Medicine